=== PATIENT | female | born 1955 | race Caucasian/White ===

== ENCOUNTER → 2016-12-27 | Outpatient (CLI) | payer MEDICARE ==
[2015-11-16 11:48] VITALS: BP 135/78
[~2016-12-27] MED LIST: ALBU8.5H3 IH; ALPR1TAB6 PO; ASPI81TA9 PO; ATOR40TA59 PO; BARIUM SULFATE 60% 355 ML SUSP PO ONE; BUPR150T11 PO; CALC625T PO; CINN500C PO; CLON1TAB3 PO; DICL100G7 TP; DIPH50CA PO; FURO-68 PO; GABA-586 PO; GINK120C PO; IBUP800T PO; LIDO700A4 TP; LORA10TA3 PO; METF500T4 PO; METO25TA4 PO; MILN100T PO; MORP100T PO; MULT-208 PO; OXYC1TAB9 PO; POTA20TA12 PO; PROM12.56 PO; RANI150T6 PO; TIZA4TAB8 PO; VITA1TAB19 PO
--- NOTE | 2016-12-27 12:55 | RAD ---
EXAM: Small bowel follow-through exam. HISTORY: Pain. TECHNIQUE: A od grinder operator image of the abdomen was obtained. Serial overhead images of the abdomen were then obtained following the oral administration of barium contrast. 2 fluoroscopic spot images were obtained at the conclusion of the exam. The total thoracic time was not included on the images at the time of dictation. COMPARISON: CT dated 11/14/2015. FINDINGS: The od grinder operator image of the abdomen demonstrates a moderate amount of colonic stool. Air is no evidence of small bowel obstruction. There are cholecystectomy clips. There is a left ventral abdominal wall ostomy. The images obtained following the oral administration of contrast demonstrate contrast opacification of normal caliber loops of small bowel. No small bowel mucosal abnormality is seen. There is no stricture or fistula. The small bowel transit time is delayed beyond 210 minutes. The ileocecal valve is not opacified on the final images. IMPRESSION: 1. Delayed small transit time of greater than 210 minutes. 2. No evidence of small bowel mucosal abnormality. 3. Moderate colonic stool, suggesting a component of constipation.
== END | disposition home or self-care (01) ==
LOC: RAD 08:33
PROVIDERS: ATTEND Internal Medicine Gastroenterology
DX: R10.9 Unspecified abdominal pain (principal); Z90.49 Acquired absence of other specified parts of digestive tract; Z87.898 Personal history of other specified conditions
CPT/HCPCS: 74250

== ENCOUNTER 2018-07-07 11:34 | Emergency (ER) | payer MEDICARE ==
[~2018-07-07] VITALS: Ht 160 cm; Wt 94.4 kg
[~2018-07-07 11:34] MED LIST changes: -ALBU8.5H3 IH; +ALBU8.5H8 IH; +ASPI-612 PO; -ASPI81TA9 PO; -BARIUM SULFATE 60% 355 ML SUSP PO ONE; -CINN500C PO; +CINN500C2 PO; -CLON1TAB3 PO; +CLON1TAB4 PO; +DICL100G18 TP; -DICL100G7 TP; -IBUP800T PO; +IBUP800T19 PO; +METF500T16 PO; -METF500T4 PO; +OXYC-411 PO; -OXYC1TAB9 PO; +RANI150T21 PO; -RANI150T6 PO
[2018-07-07 12:29] LABS: BASO % 0 % (0-3); EOS # 0.2 x10^3/uL (0.0-0.7); EOS % 2 % (0-3); HEMATOCRIT 38.6 % (36.0-47.0); HEMOGLOBIN 13.3 g/dL (12.0-15.5); LYMPH # 1.7 x10^3/uL (1.0-4.8); LYMPH % 21 % (24-48); MEAN CORPUSCULAR HEMOGLOBIN 32 pg (25-35); MEAN CORPUSCULAR HGB CONC 35 g/dL (31-37); MEAN CORPUSCULAR VOLUME 93 fL (79-100); MONO # 0.5 x10^3/uL (0.0-1.1); MONO % 6 % (0-9); NEUT # 5.7 x10^3uL (1.8-7.7); NEUT % 70 % (31-73); PLATELET COUNT 230 x10^3/uL (140-400); RED BLOOD COUNT 4.15 x10^6/uL (3.50-5.40); RED CELL DISTRIBUTION WIDTH 12.7 % (11.5-14.5); WHITE BLOOD COUNT 8.1 x10^3/uL (4.0-11.0)
--- NOTE | 2018-07-07 12:29 | RAD ---
Right tibia and fibula, 2 views, 07/07/2018: HISTORY: Fall, pain No fracture or bony abnormality is detected. There is mild to moderate subcutaneous edema IMPRESSION: No acute bony abnormality is detected. Electronically signed by: Lio Blunt MD (07/07/2018 12:25 PM) [facility]
[2018-07-07 12:38] LABS: ALBUMIN 3.2 g/dL (3.4-5.0); ALBUMIN/GLOBULIN RATIO 0.9 (1.0-1.7); CALCIUM 8.9 mg/dL (8.5-10.1); CREATININE 0.8 mg/dL (0.6-1.0); GFR 72.4; POTASSIUM 4.1 mmol/L (3.5-5.1); TOTAL BILIRUBIN 0.3 mg/dL (0.2-1.0); TOTAL PROTEIN 6.6 g/dL (6.4-8.2)
--- NOTE | 2018-07-07 12:59 | RAD ---
Right lower extremity venous doppler ultrasound Indication: Pain, erythema and swelling of the right leg Technique: Color Doppler, grayscale, and spectral waveform analysis is used to evaluate the right femoral and popliteal veins. Findings: No evidence of deep venous thrombosis. Normal response to augmentation, normal compressibility and normal phasicity is demonstrated. Visualized calf veins are patent. Impression: Negative for deep venous thrombosis Electronically signed by: Carlos Manuel Bryson MD (07/07/2018 12:55 PM) [facility]
[2018-07-07] MEDS ORDERED: IV NORMAL SALINE 50ML 50 ML ONE (13:02)
[2018-07-07] MEDS ORDERED: cefTRIAXone SODIUM 1 GM VIAL IV ONE (13:02)
[2018-07-07 13:05] VITALS: BP 135/78
[2018-07-07 13:27] LABS: BACTERIA,URINE FEW /HPF (0-FEW); BILIRUBIN,URINE NEG (NEG); CLARITY,URINE HAZY; COLOR,URINE YELLOW; GLUCOSE,URINE NEG (NEG); NITRITE,URINE NEG (NEG); RBC,URINE 0 /HPF (0-2); SQUAMOUS EPITHELIAL CELL,UR OCC /LPF; UROBILINOGEN,URINE 1 mg/dL (0.2 mg/dL)
[2018-07-07] MEDS ORDERED: LEVO500T59 PO (13:46)
--- NOTE | 2018-07-07 13:46 | PHYS DOC ---
Past History Past Medical History: Anxiety, Depression, GERD, High Cholesterol, Hypertension Past Surgical History: Colectomy, Other Alcohol Use: None Drug Use: None Adult General Chief Complaint Chief Complaint: CELLULITIS HPI HPI Patient is a 63 year old female who presents with appearing of cellulitis of right lower extremity. Patient states she had a fall 2 weeks ago with ecchymosis of right lower extremity and since yesterday has had erythema and tenderness and fullness of right lower without focal neuro deficit, fever and chills, shortness of breath. Patient denies diabetes mellitus and history of DVT and PE. Review of Systems Review of Systems Constitutional: Denies fever or chills [] Eyes: Denies change in visual acuity, redness, or eye pain [] HENT: Denies nasal congestion or sore throat [] Respiratory: Denies cough or shortness of breath [] Cardiovascular: No additional information not addressed in HPI [] GI: Denies abdominal pain, nausea, vomiting, bloody stools or diarrhea [] : Denies dysuria or hematuria [] Musculoskeletal: Denies back pain or joint pain [] Integument: Denies rash or skin lesions [] Neurologic: Denies headache, focal weakness or sensory changes [] Endocrine: Denies polyuria or polydipsia [] All other systems were reviewed and found to be within normal limits, except as documented in this note. Current Medications Current Medications Current Medications Medications (Trade) Dose Ordered Sig/Emily Start Time Stop Time Status Last Admin Dose Admin Ceftriaxone Sodium 1 gm/ Sodium Chloride 50 ml @ 100 mls/hr 1X ONCE 07/07/18 13:00 07/07/18 13:29 DC 07/07/18 13:19 100 MLS/HR Ceftriaxone Sodium (Rocephin) 1 gm STK-MED ONCE 07/07/18 13:02 07/07/18 13:03 DC Sodium Chloride 50 ml @ As Directed STK-MED ONCE 07/07/18 13:02 07/07/18 13:03 DC Allergies Allergies Allergies Coded Allergies Type Severity Reaction Last Updated Verified Horse/Equine Containing Products Allergy Intermediate 11/15/15 Yes methadone Allergy Intermediate 11/15/15 Yes ondansetron Allergy Intermediate 11/15/15 Yes Physical Exam Physical Exam Constitutional: Well developed, well nourished, mild distress, non-toxic appearance. [] HENT: Normocephalic, atraumatic, bilateral external ears normal, oropharynx moist, no oral exudates, nose normal. [] Eyes: PERRLA, EOMI, conjunctiva normal, no discharge. [] Neck: Normal range of motion, no tenderness, supple, no stridor. [] Cardiovascular: Tachycardia, no murmur [] Lungs & Thorax: Bilateral breath sounds clear to auscultation [] Abdomen: Bowel sounds normal, soft, no tenderness, no masses, no pulsatile masses. [] Skin: Warm, dry, no erythema, no rash. [] Back: No tenderness, no CVA tenderness. [] Extremities: Right lower extremity with old ecchymosis in the upper part of Bailey and erythema and edema and marked tenderness of lower part of leg above ankle without neurovascular deficit, no cyanosis, no clubbing, ROM is painful.[ ] Neurologic: Alert and oriented X 3, normal motor function, normal sensory function, no focal deficits noted. [] Psychologic: Affect normal, judgement normal, mood normal. [] Current Patient Data Vital Signs Vital Signs Date Time Temp Pulse Resp B/P (MAP) Pulse Ox O2 Delivery O2 Flow Rate FiO2 07/07/18 11:34 99.0 92 22 95 Room Air Lab Results Laboratory Tests Test 07/07/18 12:05 07/07/18 12:51 White Blood Count 8.1 x10^3/uL (4.0-11.0) Red Blood Count 4.15 x10^6/uL (3.50-5.40) Hemoglobin 13.3 g/dL (12.0-15.5) Hematocrit 38.6 % (36.0-47.0) Mean Corpuscular Volume 93 fL (79-100) Mean Corpuscular Hemoglobin 32 pg (25-35) Mean Corpuscular Hemoglobin Concent 35 g/dL (31-37) Red Cell Distribution Width 12.7 % (11.5-14.5) Platelet Count 230 x10^3/uL (140-400) Neutrophils (%) (Auto) 70 % (31-73) Lymphocytes (%) (Auto) 21 % (24-48) L Monocytes (%) (Auto) 6 % (0-9) Eosinophils (%) (Auto) 2 % (0-3) Basophils (%) (Auto) 0 % (0-3) Neutrophils # (Auto) 5.7 x10^3uL (1.8-7.7) Lymphocytes # (Auto) 1.7 x10^3/uL (1.0-4.8) Monocytes # (Auto) 0.5 x10^3/uL (0.0-1.1) Eosinophils # (Auto) 0.2 x10^3/uL (0.0-0.7) Basophils # (Auto) 0.0 x10^3/uL (0.0-0.2) Prothrombin Time 9.7 SEC (9.4-11.4) Prothrombin Time INR 1.0 (0.9-1.1) Sodium Level 140 mmol/L (136-145) Potassium Level 4.1 mmol/L (3.5-5.1) Chloride Level 101 mmol/L (98-107) Carbon Dioxide Level 35 mmol/L (21-32) H Anion Gap 4 (6-14) L Blood Urea Nitrogen 10 mg/dL (7-20) Creatinine 0.8 mg/dL (0.6-1.0) Estimated GFR (Cockcroft-Gault) 72.4 BUN/Creatinine Ratio 13 (6-20) Glucose Level 121 mg/dL (70-99) H Lactic Acid Level 1.1 mmol/L (0.4-2.0) Calcium Level 8.9 mg/dL (8.5-10.1) Total Bilirubin 0.3 mg/dL (0.2-1.0) Aspartate Amino Transferase (AST) 25 U/L (15-37) Alanine Aminotransferase (ALT) 27 U/L (14-59) Alkaline Phosphatase 109 U/L (46-116) Total Protein 6.6 g/dL (6.4-8.2) Albumin 3.2 g/dL (3.4-5.0) L Albumin/Globulin Ratio 0.9 (1.0-1.7) L Urine Collection Type Unknown Urine Color Yellow Urine Clarity Hazy Urine pH 6.5 Urine Specific Leroy 1.015 Urine Protein Neg (NEG-TRACE) Urine Glucose (UA) Neg mg/dL (NEG) Urine Ketones (Stick) Neg mg/dL (NEG) Urine Blood Trace (NEG) Urine Nitrite Neg (NEG) Urine Bilirubin Neg (NEG) Urine Urobilinogen Dipstick 1 mg/dL (0.2 mg/dL) Urine Leukocyte Esterase Large (NEG) Urine RBC 0 /HPF (0-2) Urine WBC 11-20 /HPF (0-4) Urine Squamous Epithelial Cells Occ /LPF Urine Transitional Epithelial Cells Occ /LPF Urine Bacteria Few /HPF (0-FEW) EKG EKG [] Radiology/Procedures Radiology/Procedures [address] [address] IMAGING REPORT Signed PATIENT: ALMA KNIGHT ACCOUNT: [id number] : 1955 LOCATION: ER AGE: 63 SEX: F EXAM STATUS: REG ER ORD. PHYSICIAN: ROSA WASHBURN MD REASON: pain and erythema PROCEDURE: VENOUS LOWER EXTREMITY RIGHT Right lower extremity venous doppler ultrasound Indication: Pain, erythema and swelling of the right leg Technique: Color Doppler, grayscale, and spectral waveform analysis is used to evaluate the right femoral and popliteal veins. Findings: No evidence of deep venous thrombosis. Normal response to augmentation, normal compressibility and normal phasicity is demonstrated. Visualized calf veins are patent. Impression: Negative for deep venous thrombosis Electronically signed by: Carlos Manuel Bryson MD (07/07/2018 12:55 PM) [facility] DICTATED AND SIGNED BY: CARLOS MANUEL BRYSON MD DATE: 07/07/18 1254 CC: ROSA WASHBURN MD; ZEINAB NARAYANAN MD ~ [address] [address] IMAGING REPORT Signed PATIENT: ALMA KNIGHT ACCOUNT: [id number] : 1955 LOCATION: ER AGE: 63 SEX: F EXAM STATUS: REG ER ORD. PHYSICIAN: ROSA WASHBURN MD REASON: cellulitis PROCEDURE: TIBIA FIBULA RIGHT Right tibia and fibula, 2 views, 07/07/2018: HISTORY: Fall, pain No fracture or bony abnormality is detected. There is mild to moderate subcutaneous edema IMPRESSION: No acute bony abnormality is detected. Electronically signed by: Lio Blunt MD (07/07/2018 12:25 PM) [facility] DICTATED AND SIGNED BY: LIO BLUNT MD DATE: 07/07/18 1223 CC: ROSA WASHBURN MD; ZEINAB NARAYANAN MD ~ Course & Med Decision Making Course & Med Decision Making Pertinent Labs and Imaging studies reviewed. (See chart for details) Evaluation of patient in ER showed 63-year-old female patient without history of diabetes presented with cellulitis of right lower extremity since yesterday. Patient had marked tachycardia without fever, hypertension, leukocytosis. Lower extremity ultrasound was unremarkable for DVT. Patient preferred outpatient treatment. Patient treated with Rocephin and plan to discharge the prescription of Levaquin and instruction to return to ER if not getting better in 48 hours. Dragon Disclaimer Dragon Disclaimer This electronic medical record was generated, in whole or in part, using a voice recognition dictation system. Departure Departure: Impression: Primary Impression: Cellulitis of right lower leg Disposition: HOME, SELF-CARE ([id number]) Condition: IMPROVED Referrals: ZEINAB NARAYANAN MD (PCP) Patient Instructions: Cellulitis Additional Instructions: Apply moist warm pad on right lower extremity Follow-up with your primary care physician in 3-5 days Return to ER if not getting better Scripts Levofloxacin (LEVAQUIN) 500 Mg Tablet 1 TAB PO DAILY, #7 TAB Prov: ROSA WASHBURN MD 07/07/18 ROSA WASHBURN MD Jul 07, 2018 13:46
== END 2018-07-07 14:05 | disposition home or self-care (01) ==
LOC: ER 11:34
DX: L03.115 Cellulitis of right lower limb (principal); K21.9 Gastro-esophageal reflux disease without esophagitis; E78.00 Pure hypercholesterolemia, unspecified; I10 Essential (primary) hypertension; Z88.8 Allergy status to other drugs, medicaments and biological substances; Z91.048 Other nonmedicinal substance allergy status
CPT/HCPCS: 36415; 73590; 80053; 81001; 83605; 85025; 85610; 87040; 87086; 93971; 96365; 99285; J0696

== ENCOUNTER 2018-07-31 00:44 | Emergency (ER) | payer MEDICARE ==
[~2018-07-31] VITALS: Ht 160 cm; Wt 91.2 kg
[~2018-07-31 00:44] MED LIST changes: +LEVO500T59 PO
--- NOTE | 2018-07-31 01:01 | ED.ADGEN ---
Past History Past Medical History: Anxiety, Depression, GERD, High Cholesterol, Hypertension , Other Past Surgical History: Colectomy, Other Alcohol Use: None Drug Use: None Adult General Chief Complaint Chief Complaint ".. I was watching a movie.. and fell asleep.. I guess I was up sleep walking and I ran into the hutch...".." It happen about midnight... ".. "I got this bump on my head...I hurt my Lt. 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 " I quinton woke up when I hit the hutch...".." I would not have come in .. except I was nauseated...".. " I am not going to be admitted.. I got two dogs and a cat to take care of... I will not be admitted...".." I take a lot of pain meds.. Morphine 100mg three times a day..and Percocet.. Dr. Wallace has been trying to wean me down..." HPI HPI Patient is a 63 year old female who presents with above hx and complaints head, neck and Rt. knee injury in a fall after hitting her hutch sleep walking. Pt. seen early this month on the 07/07, for a previous fall and contusion to her face. Pt. has new contusion to her forehead, neck and Lt knee. Pt. is able to do straight leg lift. But does complain of pain on range of motion with left knee. Patient recently diagnosed with cellulitis and right leg which appears to have resolved on antibiotics. Patient localizes her neck pain to the paraspinal muscles and trapezius bilaterally. No specific midline tenderness. Pt. follows with Dr. Wallace Review of Systems Review of Systems Constitutional: Denies fever or chills [] Eyes: Denies change in visual acuity, redness, or eye pain [] HENT: Denies nasal congestion or sore throat []Head injury. Respiratory: Hx chronic shortness of breath [] Cardiovascular: No additional information not addressed in HPI [] GI: Denies abdominal pain, , vomiting, bloody stools or diarrhea []Complaints of nausea. : Denies dysuria or hematuria [] Musculoskeletal: Chronic back pain and joint pain [] Integument: Denies rash or skin lesions [] Neurologic: Denies , focal weakness or sensory changes []Complaints of frontal headache. Endocrine: Denies polyuria or polydipsia [] All other systems were reviewed and found to be within normal limits, except as documented in this note. Family History Family History Noncontributory Current Medications Current Medications Current Medications Medications (Trade) Dose Ordered Sig/Emily Start Time Stop Time Status Last Admin Dose Admin Diphenhydramine HCl (Benadryl Oral Elixir) 50 mg 1X ONCE 07/31/18 01:30 07/31/18 01:31 DC Diphenhydramine HCl (Benadryl) 50 mg 1X ONCE 07/31/18 01:30 07/31/18 01:31 DC 07/31/18 01:27 50 MG Prochlorperazine Edisylate (Compazine) 10 mg 1X ONCE 07/31/18 01:30 07/31/18 01:31 DC 07/31/18 01:27 10 MG Allergies Allergies Allergies Coded Allergies Type Severity Reaction Last Updated Verified aspartame Allergy Severe Anaphylaxis 07/31/18 Yes saccharin Allergy Severe Anaphylaxis 07/31/18 Yes sucralose Allergy Severe Anaphylaxis 07/31/18 Yes Horse/Equine Containing Products Allergy Intermediate 07/31/18 Yes methadone Allergy Intermediate 07/31/18 Yes ondansetron Allergy Intermediate 07/31/18 Yes Physical Exam Physical Exam Constitutional: Moderate distress, non-toxic appearance. [] HENT: Normocephalic, facial and forehead contusion old and new, bilateral external ears normal, oropharynx moist, no oral exudates, nose normal. [] Eyes: PERRLA, EOMI, conjunctiva normal, no discharge. [] Neck: Normal range of motion, paracervical muscle spasms and tenderness, some trapezius bilateral muscle spasms, supple, no stridor. [] Kyphosis. Cardiovascular: Bradycardic Heart rate regular rhythm, no murmur [] Lungs & Thorax: Bilateral breath sounds equal at apexes with a few scattered wheezes auscultation []has basilar crackles Abdomen: Bowel sounds normal, soft, no tenderness, no masses, no pulsatile masses. [] Distended. Old surgical scars. Colostomy. Skin: Warm, dry, no erythema, no rash. Old and new contusions. Back: No tenderness, no CVA tenderness. []Kyphosis Extremities: Lt knee tenderness, no cyanosis, no clubbing, ROM with crepitation , , trace ankle edema. [] Can do straight leg lift. No cording appreciated. Arthritic changes Neurologic: Alert and oriented X 3, normal motor function, normal sensory function, no focal deficits noted. Mild tremor. Psychologic: Affect normal, judgement normal, mood normal. [] Current Patient Data Vital Signs Vital Signs Date Time Temp Pulse Resp B/P (MAP) Pulse Ox O2 Delivery O2 Flow Rate FiO2 07/31/18 00:45 98.3 67 20 91 Room Air Lab Results Laboratory Tests Test 07/31/18 02:07 White Blood Count 6.1 x10^3/uL (4.0-11.0) Red Blood Count 4.34 x10^6/uL (3.50-5.40) Hemoglobin 13.9 g/dL (12.0-15.5) Hematocrit 40.3 % (36.0-47.0) Mean Corpuscular Volume 93 fL (79-100) Mean Corpuscular Hemoglobin 32 pg (25-35) Mean Corpuscular Hemoglobin Concent 35 g/dL (31-37) Red Cell Distribution Width 12.7 % (11.5-14.5) Platelet Count 192 x10^3/uL (140-400) Neutrophils (%) (Auto) 54 % (31-73) Lymphocytes (%) (Auto) 34 % (24-48) Monocytes (%) (Auto) 9 % (0-9) Eosinophils (%) (Auto) 3 % (0-3) Basophils (%) (Auto) 0 % (0-3) Neutrophils # (Auto) 3.3 x10^3uL (1.8-7.7) Lymphocytes # (Auto) 2.1 x10^3/uL (1.0-4.8) Monocytes # (Auto) 0.5 x10^3/uL (0.0-1.1) Eosinophils # (Auto) 0.2 x10^3/uL (0.0-0.7) Basophils # (Auto) 0.0 x10^3/uL (0.0-0.2) Prothrombin Time 9.8 SEC (9.4-11.4) Prothrombin Time INR 1.0 (0.9-1.1) PTT 24 SEC (23-33) Sodium Level 143 mmol/L (136-145) Potassium Level 3.6 mmol/L (3.5-5.1) Chloride Level 102 mmol/L (98-107) Carbon Dioxide Level 37 mmol/L (21-32) H Anion Gap 4 (6-14) L Blood Urea Nitrogen 18 mg/dL (7-20) Creatinine 1.0 mg/dL (0.6-1.0) Estimated GFR (Cockcroft-Gault) 56.0 Glucose Level 109 mg/dL (70-99) H Calcium Level 8.9 mg/dL (8.5-10.1) Magnesium Level 2.1 mg/dL (1.8-2.4) Creatine Kinase 63 U/L (26-192) Troponin I Quantitative < 0.017 ng/mL (0-0.055) KW-Bsj-D-Type Natriuretic Peptide 303 pg/mL (0-124) H EKG EKG My interpretation EKG shows a sinus rhythm at 64 bpm. Does have some leftward axis. Some nonspecific anterior septal changes. Does have a baseline artifact from mild tremor[] Radiology/Procedures Radiology/Procedures My interpretation of chest x-ray shows cardiomegaly. No large pulmonary infiltrate. Some blunting a less closed phrenic angle. Similar to prior x-ray on file.[] My interpretation CT of head shows chronic changes but no bleed, shift, mass, edema or fracture. Does appear to have right maxillary sister sinusitis. Cervical shows degenerative joint changes but no obvious fracture or dislocation. See formal report when available Course & Med Decision Making Course & Med Decision Making Pertinent Labs and Imaging studies reviewed. (See chart for details) Begged pt. to stay for head injury observation. Pt. refused. Pt. exhibit UCAR capacity and understanding. Pt. aware of risks of discharge. Pt. to continue current meds.and follow up with primary. Return at any time if she elects to be admitted. [] Final Impression Final Impression 1. Fall 2. Closed Head Injury 3. Contusions face 4. Rt Knee contusions 5. Hx of Chronic Pain- Chronic Narcotic Use [] Dragon Disclaimer Dragon Disclaimer This electronic medical record was generated, in whole or in part, using a voice recognition dictation system. JAKOB GILL MD Jul 31, 2018 01:00
[2018-07-31] MEDS ORDERED: diphenhydrAMINE HCL 25 MG CAPSULE PO ONE ×2 (01:20→01:30)
--- NOTE | 2018-07-31 01:23 | EKG ---
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
[2018-07-31] MEDS ORDERED: diphenhydrAMINE ORAL ELIXIR 12.5 MG/5 ML ML PO ONE (01:30)
[2018-07-31] MEDS ORDERED: PROCHLORPERAZINE 10 MG/2 ML VIAL. IM ONE (01:30)
[2018-07-31 02:26] LABS: BASO % 0 % (0-3); EOS # 0.2 x10^3/uL (0.0-0.7); EOS % 3 % (0-3); HEMATOCRIT 40.3 % (36.0-47.0); HEMOGLOBIN 13.9 g/dL (12.0-15.5); LYMPH # 2.1 x10^3/uL (1.0-4.8); LYMPH % 34 % (24-48); MEAN CORPUSCULAR HEMOGLOBIN 32 pg (25-35); MEAN CORPUSCULAR HGB CONC 35 g/dL (31-37); MEAN CORPUSCULAR VOLUME 93 fL (79-100); MONO # 0.5 x10^3/uL (0.0-1.1); MONO % 9 % (0-9); NEUT # 3.3 x10^3uL (1.8-7.7); NEUT % 54 % (31-73); PLATELET COUNT 192 x10^3/uL (140-400); RED BLOOD COUNT 4.34 x10^6/uL (3.50-5.40); RED CELL DISTRIBUTION WIDTH 12.7 % (11.5-14.5); WHITE BLOOD COUNT 6.1 x10^3/uL (4.0-11.0)
--- NOTE | 2018-07-31 02:33 | RAD ---
CT Head W/O Contrast: History: FALL, HIT FOREHEAD, CONTUSION WITH ABRASION, NAUSEA AND HEADACHE, IN CCOLLAR Comparison: none Axial images were obtained without contrast. The vilchis and white matter appears normal and symmetrical for the patients age. There is no mass effect, extraaxial fluid collections or hydrocephalus. There is no gross bleed. There is no focal loss of vilchis-white matter distinction to suggest acute ischemia, i.e. stroke. There is a small polyp versus mucous retention cyst the right maxillary sinus. Impression: No acute findings. End impression CT C-Spine without contrast: Clinical History: FALL, HIT FOREHEAD, CONTUSION WITH ABRASION, NAUSEA AND HEADACHE, IN CCOLLAR Technique: Axial helical images of the cervical spine were obtained without contrast, axial coronal and sagittal reconstruction was performed. Findings: There is no loss of vertebral body stature. There is no prevertebral soft tissue swelling. The vertebral bodies are well aligned. The C1-C2 relationship is normal. The visualized osseous structures appear normal. There is straightening of the normal cervical lordosis which can be positional or can be secondary to muscle spasm. Evaluation of the central canal is limited without contrast. Impression: No acute findings. Clinical correlation suggested. PQRS Compliance Statement: One or more of the following individualized dose reduction techniques were utilized for this examination: 1. Automated exposure control 2. Adjustment of the mA and/or kV according to patient size 3. Use of iterative reconstruction technique Electronically signed by: Luiz Estrada III, MD (07/31/2018 2:31 AM) [facility]
--- NOTE | 2018-07-31 02:56 | RAD ---
CHEST AP ONLY Clinical History: FALL Technique: AP view of the chest was obtained at 07/31/2018 1:44 AM. Comparison: November 15, 2015. Findings: The heart is mildly enlarged. The pulmonary vasculature is normal. The lungs and pleural margins are clear. Impression: Mild cardiomegaly. Electronically signed by: Luiz Estrada III, MD (07/31/2018 2:53 AM) [facility]
--- NOTE | 2018-07-31 02:57 | RAD ---
4 views left knee HISTORY: Pain status post fall AP lateral oblique and sunrise views There is moderate degenerative changes with marginal spurring of all 3 compartments. There is no interruption of cortex to suggest a fracture. IMPRESSION: No acute findings. Electronically signed by: Luiz Estrada III, MD (07/31/2018 2:54 AM) [facility]
[2018-07-31 02:59] LABS: CALCIUM 8.9 mg/dL (8.5-10.1); MAGNESIUM 2.1 mg/dL (1.8-2.4); POTASSIUM 3.6 mmol/L (3.5-5.1)
[2018-07-31 03:30] VITALS: BP 112/67
== END 2018-07-31 03:56 | disposition home or self-care (01) ==
LOC: ER 00:44
DX: S09.90XA Unspecified injury of head, initial encounter (principal); S00.83XA Contusion of other part of head, initial encounter; S80.01XA Contusion of right knee, initial encounter; G89.29 Other chronic pain; K21.9 Gastro-esophageal reflux disease without esophagitis; E78.00 Pure hypercholesterolemia, unspecified; I10 Essential (primary) hypertension; Z88.8 Allergy status to other drugs, medicaments and biological substances; W18.09XA Striking against other object with subsequent fall, initial encounter; Y93.89 Activity, other specified; Y92.89 Other specified places as the place of occurrence of the external cause; Y99.8 Other external cause status
CPT/HCPCS: 36415; 70450; 71045; 72125; 73564; 80048; 82550; 83735; 83880; 84484; 85025; 85610; 85730; 93005; 96372; 99285; J0780; Q0163

== ENCOUNTER 2018-12-25 20:45 | Emergency (ER) | payer MEDICARE ==
[~2018-12-25] VITALS: Ht 160 cm; Wt 93.4 kg
[~2018-12-25 20:45] MED LIST changes: +ALBU2.5V8 IH; -ALBU8.5H8 IH; +CLON1TAB11 PO; -CLON1TAB4 PO
[2018-12-25 22:05] LABS: BASO # 0.1 x10^3/uL (0.0-0.2); BASO % 1 % (0-3); EOS % 0 % (0-3); HEMATOCRIT 46.8 % (36.0-47.0); LYMPH # 1.8 x10^3/uL (1.0-4.8); LYMPH % 17 % (24-48); MEAN CORPUSCULAR HEMOGLOBIN 32 pg (25-35); MEAN CORPUSCULAR HGB CONC 34 g/dL (31-37); MEAN CORPUSCULAR VOLUME 92 fL (79-100); MONO # 0.5 x10^3/uL (0.0-1.1); MONO % 5 % (0-9); NEUT # 8.1 x10^3uL (1.8-7.7); NEUT % 77 % (31-73); PLATELET COUNT 297 x10^3/uL (140-400); RED BLOOD COUNT 5.07 x10^6/uL (3.50-5.40); RED CELL DISTRIBUTION WIDTH 12.6 % (11.5-14.5); WHITE BLOOD COUNT 10.6 x10^3/uL (4.0-11.0)
[2018-12-25 22:17] LABS: MAGNESIUM 2.3 mg/dL (1.8-2.4)
[2018-12-25 22:26] LABS: ACETAMIN < 2 mcg/mL (10-30); ETHANOL 0 mg/dL (0-10); SALIC 1.9 mg/dL (2.8-20.0)
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
[2018-12-25] MEDS ORDERED: IV NORMAL SALINE 1,000ML 1,000 ML IV ONE (23:30)
[2018-12-26] MEDS ORDERED: ORPHENADRINE CITRATE 60 MG/2 ML VIAL. IV ONE
[2018-12-26] MEDS ORDERED: buPROPion SR 150 MG TABLET.SA PO ONE (00:30)
[2018-12-26] MEDS ORDERED: ACETAMINOPHEN 500 MG TABLET PO ONE (00:45)
[2018-12-26 01:29] LABS: BACTERIA,URINE 0 /HPF (0-FEW); BARBITURATES NEG (NEG); BENZODIAZEPINES NEG (NEG); BILIRUBIN,URINE NEG (NEG); CANNABINOIDS NEG (NEG); CLARITY,URINE CLEAR; COCAINE NEG (NEG); COLOR,URINE YELLOW; GLUCOSE,URINE NEG (NEG); METHADONE NEG (NEG); NITRITE,URINE NEG (NEG); OPIATES POS (NEG); PHENCYCLIDINE NEG (NEG); RBC,URINE 0 /HPF (0-2); SQUAMOUS EPITHELIAL CELL,UR OCC /LPF; UROBILINOGEN,URINE 0.2 mg/dL (0.2 mg/dL)
[2018-12-26 01:31] LABS: AMPHETAMINE/METHAMPHETAMINE NEG (NEG)
[2018-12-26] MEDS ORDERED: CYCLOBENZAPRINE 10 MG TABLET. PO ONE (01:45)
[2018-12-26 02:00] LABS: ALBUMIN 4.1 g/dL (3.4-5.0); ALBUMIN/GLOBULIN RATIO 0.9 (1.0-1.7); CALCIUM 9.8 mg/dL (8.5-10.1); CREATININE 1.3 mg/dL (0.6-1.0); GFR 41.4; POTASSIUM 4.6 mmol/L (3.5-5.1); TOTAL BILIRUBIN 0.4 mg/dL (0.2-1.0); TOTAL PROTEIN 8.6 g/dL (6.4-8.2)
[2018-12-26 04:10] VITALS: BP 162/84
[2018-12-26] MEDS ORDERED: IBUP800T19 PO (18:02)
[2018-12-26] MEDS ORDERED: DULO30CA2 PO (18:02)
[2018-12-26] MEDS ORDERED: RANI-348 PO (18:02)
[2018-12-26] MEDS ORDERED: ACET325T9 PO (18:02)
[2018-12-26] MEDS ORDERED: LORA10TA68 PO (18:02)
[2018-12-26] MEDS ORDERED: ALPR1TAB6 PO (18:02)
[2018-12-26] MEDS ORDERED: MORP60TA PO (20:52)
== END 2018-12-26 04:10 | disposition home or self-care (01) ==
LOC: ER 20:45
DX: R44.1 Visual hallucinations (principal); R44.0 Auditory hallucinations; R41.0 Disorientation, unspecified; N28.9 Disorder of kidney and ureter, unspecified; F41.9 Anxiety disorder, unspecified; F32.9 Major depressive disorder, single episode, unspecified; K21.9 Gastro-esophageal reflux disease without esophagitis; E78.00 Pure hypercholesterolemia, unspecified; I10 Essential (primary) hypertension; Z88.8 Allergy status to other drugs, medicaments and biological substances
CPT/HCPCS: 36415; 80053; 80307; 80329; 81001; 83690; 83735; 84484; 85025; 85610; 85730; 96361; 96374; G0480; J2060; 82003; 99284-25; J7030

== ENCOUNTER 2018-12-26 12:54 | Inpatient (IN) | payer MEDICARE ==
[~2018-12-26] VITALS: Ht 162.6 cm; Wt 92.3 kg
[2018-12-26 13:43] LABS: BASO % 1 % (0-3); EOS # 0.1 x10^3/uL (0.0-0.7); EOS % 1 % (0-3); HEMATOCRIT 43.2 % (36.0-47.0); HEMOGLOBIN 14.5 g/dL (12.0-15.5); LYMPH # 2.5 x10^3/uL (1.0-4.8); LYMPH % 36 % (24-48); MEAN CORPUSCULAR HEMOGLOBIN 31 pg (25-35); MEAN CORPUSCULAR HGB CONC 34 g/dL (31-37); MEAN CORPUSCULAR VOLUME 92 fL (79-100); MONO # 0.5 x10^3/uL (0.0-1.1); MONO % 7 % (0-9); NEUT # 3.9 x10^3uL (1.8-7.7); NEUT % 55 % (31-73); PLATELET COUNT 253 x10^3/uL (140-400); RED CELL DISTRIBUTION WIDTH 12.7 % (11.5-14.5)
[2018-12-26 13:47] LABS: AMPHETAMINE/METHAMPHETAMINE NEG (NEG); BARBITURATES NEG (NEG); BENZODIAZEPINES NEG (NEG); CANNABINOIDS NEG (NEG); COCAINE NEG (NEG); METHADONE NEG (NEG); OPIATES POS (NEG); PHENCYCLIDINE NEG (NEG)
--- NOTE | 2018-12-26 13:48 | RAD ---
PORTABLE CHEST 1V History: SHORT OF BREATH. Comparison with July 31, 2018. Note that the patient is rotated on this exam resulting in some asymmetry. Cardiac silhouette remains mildly enlarged, unchanged. No evidence of pneumothorax. No pleural effusion. No focal airspace consolidation. Regional skeleton appears grossly intact. IMPRESSION: No consolidating infiltrate. Electronically signed by: Carlos Manuel Bryson MD (12/26/2018 1:45 PM) [facility]
[2018-12-26 13:55] LABS: ALBUMIN 3.5 g/dL (3.4-5.0); ALBUMIN/GLOBULIN RATIO 0.9 (1.0-1.7); CALCIUM 8.7 mg/dL (8.5-10.1); CREATININE 0.9 mg/dL (0.6-1.0); GFR 63.2; POTASSIUM 4.7 mmol/L (3.5-5.1); TOTAL BILIRUBIN 0.4 mg/dL (0.2-1.0); TOTAL PROTEIN 7.4 g/dL (6.4-8.2)
[2018-12-26] MEDS ORDERED: ASPIRIN 81 MG TAB.CHEW PO ONE (14:20)
--- NOTE | 2018-12-26 14:22 | PHYS DOC ---
Past History Past Medical History: Anxiety, Depression, GERD, High Cholesterol, Hypertension , Other Past Surgical History: Cholecystectomy, Other Alcohol Use: None Drug Use: None Adult General Chief Complaint Chief Complaint: CHEST PAIN HPI HPI Patient is a 63 year old female who presents with complaining of chest pain. Patient states she had a nervous breakdown yesterday and [facility]. Patient complaining of sudden onset of left site aching and pressure chest pain while driving to the [facility] as a constant pain with radiation to left jaw and associated with shortness of breath, palpitation , dizziness, diaphoresis and nausea. Patient rated her pain 6/10 that decreased to 4/10 at arrival to ER. Patient denies history of chest pain, coronary artery disease, smoking, diabetes mellitus, family history of coronary artery disease. Patient has history of hypertension and dyslipidemia. Patient had extensive GI history with colostomy in place. Review of Systems Review of Systems Constitutional: Denies fever or chills [] Eyes: Denies change in visual acuity, redness, or eye pain [] HENT: Denies nasal congestion or sore throat [] Respiratory: Denies cough or shortness of breath [] Cardiovascular: No additional information not addressed in HPI [] GI: Denies abdominal pain, vomiting, bloody stools or diarrhea , reports nausea [] : Denies dysuria or hematuria [] Musculoskeletal: Denies back pain or joint pain [] Integument: Denies rash or skin lesions [] Neurologic: Denies headache, focal weakness or sensory changes [] Endocrine: Denies polyuria or polydipsia [] All other systems were reviewed and found to be within normal limits, except as documented in this note. Current Medications Current Medications Current Medications Medications (Trade) Dose Ordered Sig/[facility] Start Time Stop Time Status Last Admin Dose Admin Aspirin (Children'S Aspirin) 324 mg 1X ONCE 12/26/18 14:20 12/26/18 14:21 12/26/18 13:56 324 MG Allergies Allergies Allergies Coded Allergies Type Severity Reaction Last Updated Verified aspartame Allergy Severe Anaphylaxis 07/31/18 Yes saccharin Allergy Severe Anaphylaxis 07/31/18 Yes sucralose Allergy Severe Anaphylaxis 07/31/18 Yes Horse/Equine Containing Products Allergy Intermediate 07/31/18 Yes methadone Allergy Intermediate 07/31/18 Yes ondansetron Allergy Intermediate 07/31/18 Yes Physical Exam Physical Exam Constitutional: Well developed, well nourished, mild distress, non-toxic appearance, obese,] HENT: Normocephalic, atraumatic,oropharynx moist.[] Eyes: PERRLA, EOMI, conjunctiva normal, no discharge. [] Neck: Normal range of motion, no tenderness, supple, no stridor. [] Cardiovascular:Heart rate regular rhythm, no murmur [] Lungs & Thorax: Bilateral breath sounds clear to auscultation [] Abdomen: Bowel sounds normal, soft, no tenderness, no masses, no pulsatile masses, left colostomy in place. [] Skin: Warm, dry, no erythema, no rash. [] Back: No tenderness, no CVA tenderness. [] Extremities: No tenderness, no cyanosis, no clubbing, ROM intact, no edema. [] Neurologic: Alert and oriented X 3, normal motor function, normal sensory function, no focal deficits noted. [] Psychologic: Affect normal, judgement normal, mood normal. [] Current Patient Data Vital Signs Vital Signs Date Time Temp Pulse Resp B/P (MAP) Pulse Ox O2 Delivery O2 Flow Rate FiO2 12/26/18 13:32 98.3 68 18 95 Room Air Lab Results Laboratory Tests Test 12/26/18 13:06 White Blood Count 7.0 x10^3/uL (4.0-11.0) Red Blood Count 4.70 x10^6/uL (3.50-5.40) Hemoglobin 14.5 g/dL (12.0-15.5) Hematocrit 43.2 % (36.0-47.0) Mean Corpuscular Volume 92 fL (79-100) Mean Corpuscular Hemoglobin 31 pg (25-35) Mean Corpuscular Hemoglobin Concent 34 g/dL (31-37) Red Cell Distribution Width 12.7 % (11.5-14.5) Platelet Count 253 x10^3/uL (140-400) Neutrophils (%) (Auto) 55 % (31-73) Lymphocytes (%) (Auto) 36 % (24-48) Monocytes (%) (Auto) 7 % (0-9) Eosinophils (%) (Auto) 1 % (0-3) Basophils (%) (Auto) 1 % (0-3) Neutrophils # (Auto) 3.9 x10^3uL (1.8-7.7) Lymphocytes # (Auto) 2.5 x10^3/uL (1.0-4.8) Monocytes # (Auto) 0.5 x10^3/uL (0.0-1.1) Eosinophils # (Auto) 0.1 x10^3/uL (0.0-0.7) Basophils # (Auto) 0.0 x10^3/uL (0.0-0.2) Prothrombin Time 9.9 SEC (9.4-11.4) Prothrombin Time INR 1.0 (0.9-1.1) Sodium Level 141 mmol/L (136-145) Potassium Level 4.7 mmol/L (3.5-5.1) Chloride Level 102 mmol/L (98-107) Carbon Dioxide Level 32 mmol/L (21-32) Anion Gap 7 (6-14) Blood Urea Nitrogen 15 mg/dL (7-20) Creatinine 0.9 mg/dL (0.6-1.0) Estimated GFR (Cockcroft-Gault) 63.2 BUN/Creatinine Ratio 17 (6-20) Glucose Level 83 mg/dL (70-99) Calcium Level 8.7 mg/dL (8.5-10.1) # Magnesium Level 2.0 mg/dL (1.8-2.4) Total Bilirubin 0.4 mg/dL (0.2-1.0) Aspartate Amino Transferase (AST) 19 U/L (15-37) Alanine Aminotransferase (ALT) 14 U/L (14-59) Alkaline Phosphatase 113 U/L (46-116) Creatine Kinase 121 U/L (26-192) Troponin I Quantitative < 0.017 ng/mL (0-0.055) IA-Clw-H-Type Natriuretic Peptide 1040 pg/mL (0-124) H Total Protein 7.4 g/dL (6.4-8.2) Albumin 3.5 g/dL (3.4-5.0) Albumin/Globulin Ratio 0.9 (1.0-1.7) L Lipase 103 U/L (73-393) Urine Opiates Screen Pos (NEG) Urine Methadone Screen Neg (NEG) Urine Barbiturates Neg (NEG) Urine Phencyclidine Screen Neg (NEG) Urine Amphetamine/Methamphetamine Neg (NEG) Urine Benzodiazepines Screen Neg (NEG) Urine Cocaine Screen Neg (NEG) Urine Cannabinoids Screen Neg (NEG) Urine Ethyl Alcohol Neg (NEG) EKG EKG EKG interpreted by me. EKG at 1311 showed regular rhythm at rate of 72, left mcneil axis, no acute ST and T-wave abnormalities. Radiology/Procedures Radiology/Procedures [address] [id number] IMAGING REPORT Signed PATIENT: ALMA KNIGHT ACCOUNT: [id number] : 1955 LOCATION: ER AGE: 63 SEX: F EXAM STATUS: REG ER ORD. PHYSICIAN: ROSA WASHBURN MD REASON: chest pain PROCEDURE: PORTABLE CHEST 1V PORTABLE CHEST 1V History: SHORT OF BREATH. Comparison with July 31, 2018. Note that the patient is rotated on this exam resulting in some asymmetry. Cardiac silhouette remains mildly enlarged, unchanged. No evidence of pneumothorax. No pleural effusion. No focal airspace consolidation. Regional skeleton appears grossly intact. IMPRESSION: No consolidating infiltrate. Electronically signed by: Carlos Manuel Bryson MD (12/26/2018 1:45 PM) [facility] DICTATED AND SIGNED BY: CARLOS MANUEL BRYSON MD DATE: 12/26/181344 CC: ROSA WASHBURN MD; ZEINAB NARAYANAN MD ~ Course & Med Decision Making Course & Med Decision Making Pertinent Labs and Imaging studies reviewed. (See chart for details) Evolution of patient in ER showed 62-year-old female patient with complaining of chest pain that gradually improved at arrival to ER and decreased to 1/10 during evaluation. Patient had unremarkable EKG and labs but because of cardiac his factor of hypertension and dyslipidemia plan to admit patient for observation and more tenderness. Dr. Ash accepted admission at 1356. Dragon Disclaimer Dragon Disclaimer This electronic medical record was generated, in whole or in part, using a voice recognition dictation system. Departure Departure: Impression: Primary Impression: Acute chest pain Disposition: ADMITTED INPATIENT (@1358) Admitting Physician: Nate Ash (accepted admission at 1356) Condition: IMPROVED Referrals: ZEINAB NARAYANAN MD (PCP) ROSA WASHBURN MD Dec 26, 2018 14:22
[2018-12-26] MEDS ORDERED: ACETAMINOPHEN 325 MG TABLET PO ONE ×2 (16:17→16:45)
[2018-12-26 17:23] VITALS: BP 128/77
[2018-12-26] MEDS ORDERED: ACET325T9 PO (18:02)
[2018-12-26] MEDS ORDERED: RANI-348 PO (18:02)
[2018-12-26] MEDS ORDERED: DULO30CA2 PO (18:02)
[2018-12-26] MEDS ORDERED: LORA10TA68 PO (18:02)
[2018-12-26] MEDS ORDERED: ALPR1TAB6 PO (18:02)
[2018-12-26] MEDS ORDERED: IBUP800T19 PO (18:02)
[2018-12-26 20:02] VITALS: BP 132/75
[2018-12-26] MEDS ORDERED: DICLOFENAC SODIUM 1% TOPICAL GEL 100GM TUBE. TP PRN (20:45)
[2018-12-26] MEDS ORDERED: ACETAMINOPHEN 325 MG TABLET PO PRN (20:45)
[2018-12-26] MEDS ORDERED: MORP60TA PO (20:52)
[2018-12-26] MEDS ORDERED: CINNAMON BARK 2000 MG PO SCH (21:00)
[2018-12-26] MEDS ORDERED: PROMETHAZINE 25 MG TABLET. PO PRN (21:15)
[2018-12-26] MEDS ORDERED: diphenhydrAMINE HCL 25 MG CAPSULE PO PRN (21:15)
[2018-12-26] MEDS: POTASSIUM CHLORIDE 20 MEQ TABLET.ER. PO SCH (22:15)
[2018-12-26] MEDS: buPROPion SR 150 MG TABLET.SA PO SCH (22:15)
[2018-12-26] MEDS: CALCIUM POLYCARBOPHIL 625 MG TABLET PO SCH (22:15)
[2018-12-26] MEDS: tiZANidine 4 MG TABLET. PO SCH (22:15)
[2018-12-26] MEDS: ASPIRIN ENTERIC COATED 81 MG TABLET.DR. PO SCH (22:16)
[2018-12-26] MEDS: FAMOTIDINE 20 MG TABLET PO SCH (22:16)
[2018-12-26] MEDS: FUROSEMIDE 20 MG TABLET PO SCH (22:16)
[2018-12-26] MEDS: CETIRIZINE HCL 10 MG TABLET PO SCH (22:16)
[2018-12-26] MEDS: METOPROLOL TART IMMED RELEASE 25 MG TABLET PO SCH (22:16)
[2018-12-26 23:15] VITALS: BP 147/90
[2018-12-27 05:38] VITALS: BP 131/79
[2018-12-27] MEDS: IBUPROFEN 800 MG TABLET. PO PRN ×2 (06:09→14:02)
[2018-12-27] MEDS: DULoxetine HCL 30 MG CAPSULE.DR PO SCH (08:07)
[2018-12-27] MEDS: MORPHINE 100 MG PO SCH ×2 (08:07→20:29)
[2018-12-27] MEDS: tiZANidine 4 MG TABLET. PO SCH ×2 (08:07→20:29)
[2018-12-27] MEDS: FUROSEMIDE 20 MG TABLET PO SCH ×2 (08:08→20:29)
[2018-12-27] MEDS: METOPROLOL TART IMMED RELEASE 25 MG TABLET PO SCH ×2 (08:08→20:29)
[2018-12-27] MEDS: POTASSIUM CHLORIDE 20 MEQ TABLET.ER. PO SCH ×2 (08:08→20:29)
[2018-12-27] MEDS: buPROPion SR 150 MG TABLET.SA PO SCH (08:08)
[2018-12-27] MEDS ORDERED: LIDOCAINE (700MG/PATCH) PATCH. TD PRN (09:00)
[2018-12-27 11:05] VITALS: BP 117/67
--- NOTE | 2018-12-27 14:25 | EKG ---
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
[2018-12-27] MEDS ORDERED: ALPRAZolam 0.5 MG TABLET PO PRN (14:45)
[2018-12-27 15:30] VITALS: BP 146/81
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
[2018-12-27] MEDS ORDERED: OLANZapine 2.5 MG TABLET PO PRN (18:45)
[2018-12-27 20:01] VITALS: BP_SYST 107; BP_SYST 117; BP_DIAS 66; BP_DIAS 73
[2018-12-27] MEDS: ASPIRIN ENTERIC COATED 81 MG TABLET.DR. PO SCH (20:28)
[2018-12-27] MEDS: CETIRIZINE HCL 10 MG TABLET PO SCH (20:28)
[2018-12-27] MEDS: FAMOTIDINE 20 MG TABLET PO SCH (20:29)
[2018-12-27] MEDS: clonazePAM 2 MG TABLET PO SCH (20:29)
[2018-12-27] MEDS: CALCIUM POLYCARBOPHIL 625 MG TABLET PO SCH (20:29)
[2018-12-27] MEDS: oxyCODONE/APAP 10/325 1 TAB TABLET PO SCH (20:30)
[2018-12-27 22:16] VITALS: BP 118/76
--- NOTE | 2018-12-27 23:38 | PN ---
DATE: 12/27/2018 SUBJECTIVE: The patient is sitting in her chair comfortably, in no apparent distress. She continued to hallucinate seeing animals, insects and humans in her room. She has only few twinges of her chest pain that lasted only for seconds. She continued to have episodes of diaphoresis, but no chest pain, no shortness of breath. She had 2 sets of cardiac enzymes that were both negative. PHYSICAL EXAMINATION: GENERAL: When I examined her, she looked well and was clearly in no apparent respiratory distress. No pallor, jaundice, cyanosis, or thyromegaly. No jugular venous distension. No lower limb edema. VITAL SIGNS: Her heart rate was 65, blood pressure 132/75, temperature was 97.1, respiratory rate 22 and oxygen saturation was 93% on room air. HEAD, EYES, EARS, NOSE AND THROAT: Showed normocephalic, atraumatic. NECK: Supple. HEART: Showed normal first and second heart sounds. No gallop, rub or murmur. CHEST: Clear to auscultation. No crepitation or rhonchi. ABDOMEN: Distended, soft, nontender. NEUROLOGIC: She is awake, alert, responding appropriately. All her cranial nerves were intact. She ambulates with 2 canes. IMPRESSION: Patient had 2 sets of cardiac enzymes that ruled out myocardial infarction. Again, we are waiting for evaluation by the psychiatrist as she continued to hallucinate and Cardiology for her chest pain. She apparently had a stress test done about 4 years ago, it was negative and a cardiac catheterization done 20 years ago that was also unrevealing. I would check her lipid profile tomorrow morning. DEBBIE IGLESIAS MD DR: BREANNE/thiago JOB#: [id number] / [id number]
[2018-12-28 05:06] VITALS: BP 116/73
[2018-12-28 06:24] LABS: CALCIUM 8.5 mg/dL (8.5-10.1); CREATININE 0.8 mg/dL (0.6-1.0); GFR 72.4; MAGNESIUM 2.2 mg/dL (1.8-2.4); POTASSIUM 3.7 mmol/L (3.5-5.1)
--- NOTE | 2018-12-28 07:42 | RAD ---
CT of the head without contrast, 12/27/2018: HISTORY: Hallucinations Comparison is made to a study from 07/31/2018. The ventricles are within normal limits in size. There is no shift of the midline structures. There is no evidence of acute intracranial hemorrhage or mass effect. There is minimal basal ganglia calcification on the left. IMPRESSION: No acute intracranial abnormality is detected. RS Compliance Statement: One or more of the following individualized dose reduction techniques were utilized for this examination: 1. Automated exposure control 2. Adjustment of the mA and/or kV according to patient size 3. Use of iterative reconstruction technique Electronically signed by: Lio Blunt MD (12/28/2018 7:39 AM) [facility]
[2018-12-28] MEDS: DULoxetine HCL 30 MG CAPSULE.DR PO SCH (08:47)
[2018-12-28] MEDS: FUROSEMIDE 20 MG TABLET PO SCH ×2 (08:47→20:46)
[2018-12-28] MEDS: POTASSIUM CHLORIDE 20 MEQ TABLET.ER. PO SCH ×2 (08:48→20:48)
[2018-12-28] MEDS: ISOSORBIDE MONONITRATE ER 30 MG TAB.ER.24H PO SCH (08:48)
[2018-12-28] MEDS: tiZANidine 4 MG TABLET. PO SCH ×2 (08:48→20:48)
[2018-12-28] MEDS: METOPROLOL TART IMMED RELEASE 25 MG TABLET PO SCH ×2 (08:48→21:00)
[2018-12-28] MEDS: clonazePAM 1 MG TABLET PO SCH (08:50)
[2018-12-28] MEDS: MORPHINE 100 MG PO SCH ×2 (08:51→20:47)
[2018-12-28] MEDS: oxyCODONE/APAP 10/325 1 TAB TABLET PO SCH ×2 (08:59→20:47)
--- NOTE | 2018-12-28 09:19 | PDOC ---
PROGRESS NOTES Diagnosis Problem Problems Medical Problems: (1) Acute chest pain Status: Acute Assessment Problems Medical Problems: (1) Acute chest pain Status: Acute Chest pain, resolved. WA ruled out. continue medical mgmt and RF reduction. consider ischemic evaluation if recurrent chest pain once psychiatric issues stable Hallucinations - per PCP/Psych Hypertension - controlled on current therapy Hyperlipidemia - lipid panel pending Subjective c/o continued hallucinations last night, none this am. no chest pain, no dyspnea, no palpitations, no lightheadedness Objective Vital Signs Date Time Temp Pulse Resp B/P (MAP) Pulse Ox O2 Delivery O2 Flow Rate FiO2 12/28/18 08:51 15 Nasal Cannula 12/28/18 08:48 62 116/73 12/28/18 05:06 97.8 93 12/27/18 20:01 Intake and Output 12/28/18 06:59 Intake Total 1560 ml Output Total 1300 ml Balance 260 ml Intake Oral 1560 ml Output Urine Total 1300 ml # Voids 1 # Bowel Movements 1 Physical Exam gen: awake, alert, no acute distress CV: reg rate and rhythm, no obvious murmurs, no gallops, clicks or rubs Lungs: clear without crackles, rhonchi or wheezing abd: soft, bowel sounds present ext: no edema, pulses palpable Review of Relevant I have reviewed the following items eran (where applicable) has been applied. Labs Laboratory Tests Test 12/26/18 13:06 12/26/18 17:49 12/27/18 14:50 12/28/18 05:54 White Blood Count 7.0 x10^3/uL (4.0-11.0) Red Blood Count 4.70 x10^6/uL (3.50-5.40) Hemoglobin 14.5 g/dL (12.0-15.5) Hematocrit 43.2 % (36.0-47.0) Mean Corpuscular Volume 92 fL (79-100) Mean Corpuscular Hemoglobin 31 pg (25-35) Mean Corpuscular Hemoglobin Concent 34 g/dL (31-37) Red Cell Distribution Width 12.7 % (11.5-14.5) Platelet Count 253 x10^3/uL (140-400) Neutrophils (%) (Auto) 55 % (31-73) Lymphocytes (%) (Auto) 36 % (24-48) Monocytes (%) (Auto) 7 % (0-9) Eosinophils (%) (Auto) 1 % (0-3) Basophils (%) (Auto) 1 % (0-3) Neutrophils # (Auto) 3.9 x10^3uL (1.8-7.7) Lymphocytes # (Auto) 2.5 x10^3/uL (1.0-4.8) Monocytes # (Auto) 0.5 x10^3/uL (0.0-1.1) Eosinophils # (Auto) 0.1 x10^3/uL (0.0-0.7) Basophils # (Auto) 0.0 x10^3/uL (0.0-0.2) Prothrombin Time 9.9 SEC (9.4-11.4) Prothromb Time International Ratio 1.0 (0.9-1.1) Sodium Level 141 mmol/L (136-145) 135 mmol/L (136-145) Potassium Level 4.7 mmol/L (3.5-5.1) 3.7 mmol/L (3.5-5.1) Chloride Level 102 mmol/L (98-107) 98 mmol/L (98-107) Carbon Dioxide Level 32 mmol/L (21-32) 34 mmol/L (21-32) Anion Gap 7 (6-14) 3 (6-14) Blood Urea Nitrogen 15 mg/dL (7-20) 17 mg/dL (7-20) Creatinine 0.9 mg/dL (0.6-1.0) 0.8 mg/dL (0.6-1.0) Estimated GFR (Cockcroft-Gault) 63.2 72.4 BUN/Creatinine Ratio 17 (6-20) Glucose Level 83 mg/dL (70-99) 100 mg/dL (70-99) Calcium Level 8.7 mg/dL (8.5-10.1) 8.5 mg/dL (8.5-10.1) Magnesium Level 2.0 mg/dL (1.8-2.4) 2.2 mg/dL (1.8-2.4) Total Bilirubin 0.4 mg/dL (0.2-1.0) Aspartate Amino Transf (AST/SGOT) 19 U/L (15-37) Alanine Aminotransferase (ALT/SGPT) 14 U/L (14-59) Alkaline Phosphatase 113 U/L (46-116) Creatine Kinase 121 U/L (26-192) Troponin I Quantitative < 0.017 ng/mL (0-0.055) < 0.017 ng/mL (0-0.055) < 0.017 ng/mL (0-0.055) WG-Gce-P-Type Natriuretic Peptide 1040 pg/mL (0-124) Total Protein 7.4 g/dL (6.4-8.2) Albumin 3.5 g/dL (3.4-5.0) Albumin/Globulin Ratio 0.9 (1.0-1.7) Lipase 103 U/L (73-393) Urine Opiates Screen Pos (NEG) Urine Methadone Screen Neg (NEG) Urine Barbiturates Neg (NEG) Urine Phencyclidine Screen Neg (NEG) Urine Amphetamine/Methamphetamine Neg (NEG) Urine Benzodiazepines Screen Neg (NEG) Urine Cocaine Screen Neg (NEG) Urine Cannabinoids Screen Neg (NEG) Urine Ethyl Alcohol Neg (NEG) Medications Current Medications Aspirin (Children'S Aspirin) 324 mg 1X ONCE PO Last administered on 12/26/18 13:56; Start 12/26/18 at 14:20; Stop 12/26/18 at 14:22; Status DC Acetaminophen (Tylenol) 650 mg 1X ONCE PO Last administered on 12/26/18 16:20 ; Start 12/26/18 at 16:45; Stop 12/26/18 at 16:46; Status DC Acetaminophen (Tylenol) 325 mg STK-MED ONCE PO ; Start 12/26/18 at 16:17; Stop 12/26/18 at 16:18; Status DC Acetaminophen (Tylenol) 1,000 mg PRN Q8HRS PRN PO PAIN Last administered on 16:23; Start 12/26/18 at 20:45 Calcium Polycarbophil (Fibercon) 625 mg HS PO Last administered on 12/27/18 20 :29; Start 12/26/18 at 21:00 Diclofenac Sodium (Voltaren) 1 humza PRN QID PRN TP PAIN Last administered on 16:23; Start 12/26/18 at 20:45 Metoprolol Tartrate (Lopressor) 25 mg BID PO Last administered on 12/28/18 08: 48; Start 12/26/18 at 21:00 Potassium Chloride (Klor-Con) 20 meq BID PO Last administered on 12/28/18 08: 48; Start 12/26/18 at 21:00 Aspirin (Aspirin Enteric Coated) 81 mg QHS PO Last administered on 12/27/18 20 :28; Start 12/26/18 at 21:00 Bupropion HCl (Wellbutrin Sr) 150 mg BID PO Last administered on 12/27/18 08: 08; Start 12/26/18 at 21:00; Stop 12/27/18 at 18:53; Status DC Non-Formulary Medication (Cinnamon Bark (Cinnamon)) 2,000 mg BID PO ; Start at 21:00; Stop 12/26/18 at 21:15; Status DC Diphenhydramine HCl (Benadryl) 25 mg PRN QHS PRN PO INSOMNIA; Start 12/26/18 at 21:15 Duloxetine HCl (Cymbalta) 30 mg DAILY PO Last administered on 12/28/18 08:47; Start 12/27/18 at 09:00 Furosemide (Lasix) 20 mg BID PO Last administered on 12/28/18 08:47; Start at 21:00 Ibuprofen (Motrin) 800 mg PRN Q6HRS PRN PO INFLAMMATION Last administered on 14:02; Start 12/26/18 at 21:15 Lidocaine (Lidoderm) 1 patch PRN DAILY PRN TD PAIN Last administered on 14:03; Start 12/27/18 at 09:00 Cetirizine HCl (ZyrTEC) 10 mg QHS PO Last administered on 12/27/18 20:28; Start 12/26/18 at 21:00 Promethazine HCl (Phenergan) 25 mg PRN Q4HRS PRN PO NAUSEA/VOMITING; Start at 21:15 Famotidine (Pepcid) 20 mg QHS PO Last administered on 12/27/18 20:29; Start at 21:00 Tizanidine HCl (Zanaflex) 4 mg BID PO Last administered on 12/28/18 08:48; Start 12/26/18 at 21:00 Morphine Sulfate (Ms Contin) 100 mg BID PO Last administered on 12/28/18 08:51 ; Start 12/27/18 at 09:00 Oxycodone/ Acetaminophen (Percocet 10/325) 1 tab BID PO ; Start 12/27/18 at 21: 00 Alprazolam (Xanax) 1 mg PRN Q6HRS PRN PO ANXIETY / AGITATION Last administered on 12/27/18 16:23; Start 12/27/18 at 14:45 Clonazepam (KlonoPIN) 1 mg DAILY PO Last administered on 12/28/18 08:50; Start 12/28/18 at 09:00 Clonazepam (KlonoPIN) 2 mg HS PO Last administered on 12/27/18 20:29; Start at 21:00 Isosorbide Mononitrate (Imdur) 30 mg DAILY PO Last administered on 12/28/18 08 :48; Start 12/28/18 at 09:00 Olanzapine (ZyPREXA) 2.5 mg PRN Q2HR PRN PO HALLUCINATIONS Last administered on 12/27/18 20:28; Start 12/27/18 at 18:45 Active Scripts Active Reported Morphine Sulfate Er (Morphine Sulfate) 60 Mg Tablet.er 100 Mg PO BID Tylenol (Acetaminophen) 325 Mg Tablet 1,000 Mg PO PRN Q8HRS PRN Ibuprofen 800 Mg Tablet 1 Tab PO PRN Q6HRS PRN Alprazolam 1 Mg Tablet 1 Tab PO PRN Q6HRS PRN Claritin (Loratadine) 10 Mg Tablet 1 Tab PO HS Ranitidine Hcl 75 Mg Tablet 75 Mg PO HS Cymbalta (Duloxetine Hcl) 30 Mg Capsule.dr 1 Cap PO DAILY Clonazepam 1 Mg Tablet 1 Mg PO DAILY Zanaflex (Tizanidine HCl) 4 Mg Tablet 4 Mg PO BID Promethazine Hcl 12.5 Mg Tablet 2 Tab PO Q4-6HRS PRN Potassium Chloride 20 Meq Tab.er.prt 1 Tab PO BID Oxycodone-Acetaminophen 10-325 (Oxycodone Hcl/Acetaminophen) 1 Each Tablet 1 Tab PO BID Lidoderm (Lidocaine) 700 Mg Adh..patch 1 Patch TP DAILY PRN Lasix (Furosemide) 40 Mg Tablet 20 Mg PO BID Diphenhydramine Hcl 50 Mg Capsule 1-2 Cap PO QHS PRN Voltaren (Diclofenac Sodium) 100 Gm Gel..gram. 1 Gm TP QID PRN Fibercon (Calcium Polycarbophil) 625 Mg Tablet 625 Mg PO HS Cinnamon (Cinnamon Bark) 500 Mg Capsule 2,000 Mg PO BID Aspirin Ec (Aspirin) 81 Mg Tablet.dr 1 Tab PO HS Metoprolol Tartrate 25 Mg Tablet 25 Mg PO BID Bupropion Hcl Sr (Bupropion Hcl) 150 Mg Tablet.er 150 Mg PO BID Clonazepam 1 Mg Tablet 2 Mg PO HS Vitals/I & O Vital Sign - Last 24 Hours 12/27/18 12/27/18 12/27/18 12/27/18 11:05 15:30 19:35 20:01 Temp 97.1 98.5 98.1 Pulse 63 73 63 Resp 22 22 22 B/P (MAP) 117/67 (84) 146/81 (102) 117/73 (88) Pulse Ox 93 93 92 O2 Delivery Room Air Room Air Room Air Room Air O2 Flow Rate 12/27/18 12/27/18 12/27/18 12/28/18 20:29 20:29 22:16 00:35 Temp 98.3 Pulse 63 61 Resp 18 24 18 B/P (MAP) 117/73 118/76 (90) Pulse Ox 91 O2 Delivery Room Air Room Air Room Air 12/28/18 12/28/18 12/28/18 12/28/18 05:06 08:48 08:48 08:51 Temp 97.8 Pulse 62 62 62 Resp 20 15 B/P (MAP) 116/73 (87) 116/73 116/73 Pulse Ox 93 O2 Delivery Room Air Nasal Cannula Intake and Output 12/27/18 12/27/18 12/28/18 14:59 22:59 06:59 Intake Total 600 ml 960 ml Output Total 250 ml 400 ml 650 ml Balance 350 ml 560 ml -650 ml KENDRICK TRAORE APRN Dec 28, 2018 09:19
[2018-12-28] MEDS ORDERED: ACETAMINOPHEN 500 MG TABLET PO PRN (10:15)
[2018-12-28 10:30] VITALS: BP 97/58
[2018-12-28 14:55] VITALS: BP 95/60
--- NOTE | 2018-12-28 15:43 | CARD ---
MR#: [id number] Date of Study: 12/28/2018 Ordering Physician: KENDRICK TRAORE, Referring Physician: DEBBIE IGLESIAS Tech: Yvette Sanchez RUOLA APPROVED REPORT EXAM: Two-dimensional and M-mode echocardiogram with Doppler and color Doppler. Other Information Quality : Technically LimitedHR: 62bpm Rhythm : NSRTechnically limited study due to body habitus. INDICATION Chest Pain 2D DIMENSIONS RVDd3.1 (2.9-3.5cm)Left Atrium(2D)3.1 (1.6-4.0cm) IVSd0.9 (0.7-1.1cm)Aortic Root(2D)3.0 (2.0-3.7cm) LVDd3.9 (3.9-5.9cm)LVOT Diameter2.0 (1.8-2.4cm) PWd1.0 (0.7-1.1cm)LVDs2.6 (2.5-4.0cm) FS (%) 32.5 %SV40.4 ml LVEF(%)61.5 (>50%) M-Mode DIMENSIONS Left Atrium(MM)3.09 (2.5-4.0cm)IVSd1.08 (0.7-1.1cm) Aortic Root2.71 (2.2-3.7cm)LVDd4.45 (4.0-5.6cm) PWd0.78 (0.7-1.1cm)FS (%) 47 % LVDs2.37 (2.0-3.8cm)ESV(Teich)19.6 ml LVEF(%)78 (>50%) Aortic Valve AoV Peak Wali.114.6cm/sAoV VTI27.7cm AO Peak GR.5.3mmHgLVOT Peak Wali.97.4cm/s LVOT VTI 22.51cmAO Mean GR.3mmHg SANDRA (VMAX)2.74lg4MCC (VTI)2.51cm2 Mitral Valve MV E Bsmnlxpu839.9cm/sMV DECEL [id number] MV A Yqyldjet44.1cm/sE/A Ratio1.2 Pulmonary Valve PV Peak Xkwrenmn23.0cm/sPV Peak Grad.3mmHg Tricuspid Valve TR P. [id number]/sRAP [id number] TR Peak Gr.09ibUuZQAC60kbMq LEFT VENTRICLE The left ventricle is normal size. There is normal left ventricular wall thickness. The left ventricu lar systolic function is normal. The Ejection Fraction is 60-65%. There is normal LV segmental wall m otion. Transmitral Doppler flow pattern is Grade II-pseudonormal filling dynamics. RIGHT VENTRICLE The right ventricle is normal size. There is normal right ventricular wall thickness. The right ventr icular systolic function is normal. ATRIA The left atrium size is normal. The right atrium size is normal. The interatrial septum is intact wit h no evidence for an atrial septal defect or patent foramen ovale as noted on 2-D or Doppler imaging. AORTIC VALVE The aortic valve is normal in structure and function. The aortic valve is trileaflet. Doppler and Col or Flow revealed no significant aortic regurgitation. There is no significant aortic valvular stenosi s. MITRAL VALVE The mitral valve is normal in structure and function. There is no evidence of mitral valve prolapse. There is no mitral valve stenosis. Doppler and Color Flow revealed no mitral valve regurgitation note d. TRICUSPID VALVE The tricuspid valve is normal in structure and function. Doppler and Color Flow revealed trace tricus pid regurgitation. The PA pressure was estimated at 24 mmHg. There is no tricuspid valve prolapse or vegetation. There is no tricuspid valve stenosis. PULMONIC VALVE The pulmonic valve is not well visualized. GREAT VESSELS The aortic root is normal in size. The ascending aorta is normal in size. The IVC is normal in size a nd collapses >50% with inspiration. PERICARDIAL EFFUSION There is no evidence of significant pericardial effusion. Critical Notification Critical Value: No <Conclusion> The left ventricular systolic function is normal. The Ejection Fraction is 60-65%. There is normal LV segmental wall motion. Transmitral Doppler flow pattern is Grade II-pseudonormal filling dynamics. Doppler and Color Flow revealed trace tricuspid regurgitation. The PA pressure was estimated at 24 mmHg. There is no evidence of significant pericardial effusion. Signed by : Nick Alvarez, Electronically Approved : 12/28/2018 15:43:21
--- NOTE | 2018-12-28 18:11 | PDOC ---
Exam Note: Jayden Note: Please also refer to the separate dictated note~for this date of service dictated separately.~Patient seen individually. Discussed the patient with Nursing staff reviewed the chart.~Reviewed interim history and current functioning. Reviewed vital signs,~Labs/ Radiology~and current medications noted below. Continue current treatment with the changes noted in the dictated addendum note Assessment: Vital Signs: Vital Signs Date Time Temp Pulse Resp B/P (MAP) Pulse Ox O2 Delivery O2 Flow Rate FiO2 12/28/18 14:55 98.1 65 20 95/60 (72) 93 Room Air 12/27/18 20:01 I&O Intake and Output 12/28/18 07:00 Intake Total 1560 ml Output Total 1300 ml Balance 260 ml Intake Oral 1560 ml Output Urine Total 1300 ml # Voids 1 # Bowel Movements 1 Labs: Laboratory Tests Test 12/28/18 05:54 Sodium Level 135 mmol/L (136-145) L Potassium Level 3.7 mmol/L (3.5-5.1) Chloride Level 98 mmol/L (98-107) Carbon Dioxide Level 34 mmol/L (21-32) H Anion Gap 3 (6-14) L Blood Urea Nitrogen 17 mg/dL (7-20) Creatinine 0.8 mg/dL (0.6-1.0) Estimated GFR (Cockcroft-Gault) 72.4 Glucose Level 100 mg/dL (70-99) H Calcium Level 8.5 mg/dL (8.5-10.1) Magnesium Level 2.2 mg/dL (1.8-2.4) Triglycerides Level 115 mg/dL (0-150) Cholesterol Level 206 mg/dL (0-200) H LDL Cholesterol, Calculated 146 mg/dL (0-100) H VLDL Cholesterol, Calculated 23 mg/dL (0-40) Non-HDL Cholesterol Calculated 169 mg/dL (0-129) H HDL Cholesterol 37 mg/dL (40-60) L Cholesterol/HDL Ratio 5.0 Current Medications: Meds: Current Medications Aspirin (Children'S Aspirin) 324 mg 1X ONCE PO Last administered on 12/26/18at 13:56; Start 12/26/18 at 14:20; Stop 12/26/18 at 14:22; Status DC Acetaminophen (Tylenol) 650 mg 1X ONCE PO Last administered on 12/26/18at 16:20 ; Start 12/26/18 at 16:45; Stop 12/26/18 at 16:46; Status DC Acetaminophen (Tylenol) 325 mg STK-MED ONCE PO ; Start 12/26/18 at 16:17; Stop 12/26/18 at 16:18; Status DC Acetaminophen (Tylenol) 1,000 mg PRN Q8HRS PRN PO PAIN Last administered on 16:23; Start 12/26/18 at 20:45; Stop 12/28/18 at 10:00; Status DC Calcium Polycarbophil (Fibercon) 625 mg HS PO Last administered on 12/27/18 20 :29; Start 12/26/18 at 21:00 Diclofenac Sodium (Voltaren) 1 humza PRN QID PRN TP PAIN Last administered on 16:23; Start 12/26/18 at 20:45 Metoprolol Tartrate (Lopressor) 25 mg BID PO Last administered on 12/28/18 08: 48; Start 12/26/18 at 21:00 Potassium Chloride (Klor-Con) 20 meq BID PO Last administered on 12/28/18 08: 48; Start 12/26/18 at 21:00 Aspirin (Aspirin Enteric Coated) 81 mg QHS PO Last administered on 12/27/18 20 :28; Start 12/26/18 at 21:00 Bupropion HCl (Wellbutrin Sr) 150 mg BID PO Last administered on 12/27/18 08: 08; Start 12/26/18 at 21:00; Stop 12/27/18 at 18:53; Status DC Non-Formulary Medication (Cinnamon Bark (Cinnamon)) 2,000 mg BID PO ; Start at 21:00; Stop 12/26/18 at 21:15; Status DC Diphenhydramine HCl (Benadryl) 25 mg PRN QHS PRN PO INSOMNIA; Start 12/26/18 at 21:15 Duloxetine HCl (Cymbalta) 30 mg DAILY PO Last administered on 12/28/18 08:47; Start 12/27/18 at 09:00 Furosemide (Lasix) 20 mg BID PO Last administered on 12/28/18 08:47; Start at 21:00 Ibuprofen (Motrin) 800 mg PRN Q6HRS PRN PO INFLAMMATION Last administered on 14:02; Start 12/26/18 at 21:15 Lidocaine (Lidoderm) 1 patch PRN DAILY PRN TD PAIN Last administered on 14:03; Start 12/27/18 at 09:00 Cetirizine HCl (ZyrTEC) 10 mg QHS PO Last administered on 12/27/18 20:28; Start 12/26/18 at 21:00 Promethazine HCl (Phenergan) 25 mg PRN Q4HRS PRN PO NAUSEA/VOMITING; Start at 21:15 Famotidine (Pepcid) 20 mg QHS PO Last administered on 12/27/18 20:29; Start at 21:00 Tizanidine HCl (Zanaflex) 4 mg BID PO Last administered on 12/28/18 08:48; Start 12/26/18 at 21:00 Morphine Sulfate (Ms Contin) 100 mg BID PO Last administered on 12/28/18 08:51 ; Start 12/27/18 at 09:00 Oxycodone/ Acetaminophen (Percocet 10/325) 1 tab BID PO ; Start 12/27/18 at 21: 00 Alprazolam (Xanax) 1 mg PRN Q6HRS PRN PO ANXIETY / AGITATION Last administered on 12/27/18 16:23; Start 12/27/18 at 14:45 Clonazepam (KlonoPIN) 1 mg DAILY PO Last administered on 12/28/18 08:50; Start 12/28/18 at 09:00 Clonazepam (KlonoPIN) 2 mg HS PO Last administered on 12/27/18 20:29; Start at 21:00 Isosorbide Mononitrate (Imdur) 30 mg DAILY PO Last administered on 12/28/18 08 :48; Start 12/28/18 at 09:00 Olanzapine (ZyPREXA) 2.5 mg PRN Q2HR PRN PO HALLUCINATIONS Last administered on 12/27/18 20:28; Start 12/27/18 at 18:45 Acetaminophen (Tylenol) 1,000 mg PRN Q8HRS PRN PO PAIN; Start 12/28/18 at 10:15 Active Scripts Active Reported Morphine Sulfate Er (Morphine Sulfate) 60 Mg Tablet.er 100 Mg PO BID Tylenol (Acetaminophen) 325 Mg Tablet 1,000 Mg PO PRN Q8HRS PRN Ibuprofen 800 Mg Tablet 1 Tab PO PRN Q6HRS PRN Alprazolam 1 Mg Tablet 1 Tab PO PRN Q6HRS PRN Claritin (Loratadine) 10 Mg Tablet 1 Tab PO HS Ranitidine Hcl 75 Mg Tablet 75 Mg PO HS Cymbalta (Duloxetine Hcl) 30 Mg Capsule.dr 1 Cap PO DAILY Clonazepam 1 Mg Tablet 1 Mg PO DAILY Zanaflex (Tizanidine HCl) 4 Mg Tablet 4 Mg PO BID Promethazine Hcl 12.5 Mg Tablet 2 Tab PO Q4-6HRS PRN Potassium Chloride 20 Meq Tab.er.prt 1 Tab PO BID Oxycodone-Acetaminophen 10-325 (Oxycodone Hcl/Acetaminophen) 1 Each Tablet 1 Tab PO BID Lidoderm (Lidocaine) 700 Mg Adh..patch 1 Patch TP DAILY PRN Lasix (Furosemide) 40 Mg Tablet 20 Mg PO BID Diphenhydramine Hcl 50 Mg Capsule 1-2 Cap PO QHS PRN Voltaren (Diclofenac Sodium) 100 Gm Gel..gram. 1 Gm TP QID PRN Fibercon (Calcium Polycarbophil) 625 Mg Tablet 625 Mg PO HS Cinnamon (Cinnamon Bark) 500 Mg Capsule 2,000 Mg PO BID Aspirin Ec (Aspirin) 81 Mg Tablet.dr 1 Tab PO HS Metoprolol Tartrate 25 Mg Tablet 25 Mg PO BID Bupropion Hcl Sr (Bupropion Hcl) 150 Mg Tablet.er 150 Mg PO BID Clonazepam 1 Mg Tablet 2 Mg PO HS I have reviewed the current psychotropics carefully including drug interactions. Risk benefit ratio favors no change other than as noted in my dictated progress note. Diagnosis: Problems: (1) Anxiety disorder (2) Bipolar affective, mixed (3) Impulse control disorder ESME MORRISON MD Dec 28, 2018 18:11
[2018-12-28 20:37] VITALS: BP 102/60
[2018-12-28] MEDS: CALCIUM POLYCARBOPHIL 625 MG TABLET PO SCH (20:46)
[2018-12-28] MEDS: ASPIRIN ENTERIC COATED 81 MG TABLET.DR. PO SCH (20:46)
[2018-12-28] MEDS: clonazePAM 2 MG TABLET PO SCH (20:46)
[2018-12-28] MEDS: CETIRIZINE HCL 10 MG TABLET PO SCH (20:47)
[2018-12-28] MEDS: FAMOTIDINE 20 MG TABLET PO SCH (20:47)
[2018-12-28 23:10] VITALS: BP 129/66
[2018-12-29 06:33] VITALS: BP_SYST 134; BP_DIAS 76; BP_DIAS 82
[2018-12-29] MEDS: MORPHINE 100 MG PO SCH (08:36)
[2018-12-29] MEDS: DULoxetine HCL 30 MG CAPSULE.DR PO SCH (08:36)
[2018-12-29] MEDS: POTASSIUM CHLORIDE 20 MEQ TABLET.ER. PO SCH (08:36)
[2018-12-29] MEDS: METOPROLOL TART IMMED RELEASE 25 MG TABLET PO SCH (08:37)
[2018-12-29] MEDS: ISOSORBIDE MONONITRATE ER 30 MG TAB.ER.24H PO SCH (08:38)
[2018-12-29] MEDS: FUROSEMIDE 20 MG TABLET PO SCH (08:38)
[2018-12-29] MEDS: oxyCODONE/APAP 10/325 1 TAB TABLET PO SCH (08:41)
[2018-12-29] MEDS: clonazePAM 1 MG TABLET PO SCH (08:41)
[2018-12-29] MEDS: tiZANidine 4 MG TABLET. PO SCH (08:43)
--- NOTE | 2018-12-29 08:52 | PN ---
DATE: 12/28/2018 SUBJECTIVE: The patient is sitting comfortably in her chair, sleeping, in no apparent distress. On questioning her, she denied any chest pain, shortness of breath. She has had no further episode. She was not sure about her hallucination. PHYSICAL EXAMINATION: GENERAL: When I examined her, she was pale, but no jaundice, cyanosis or thyromegaly. No jugular venous distension. No lower limb edema. VITAL SIGNS: Her heart rate was 64, blood pressure was 97/58, temperature was 98.3, respiratory rate was 20 and oxygen saturation was 93% on room air. HEAD, EYES, EARS, NOSE AND THROAT: Showed normocephalic, atraumatic. NECK: Supple. HEART: Showed normal first and second heart sounds. No gallop, rub or murmur. CHEST: Clear to auscultation. No crepitation or rhonchi. ABDOMEN: Distended, soft, nontender. No guarding or rigidity. No organomegaly. All hernial orifice intact. Bowel sounds normal. NEUROLOGIC: She was sleepy, but arousable. Her cranial nerves are intact. She moves extremities without difficulty. She ambulates with cane. Her intake was 1560, output was 1300. LABORATORY DATA: This morning showed a serum sodium 135, potassium 3.7, chloride 98, bicarbonate 34, anion gap of 3, BUN 17, creatinine 0.8. Estimated GFR was 72 mL per minute. Her glucose 100, calcium was 8.2 and magnesium was 2.2. She has 3 sets of troponin, all of them were still less than 0.017. 1. ASSESSMENT: Chest pain with myocardial infarction ruled out. She has 3 sets of cardiac enzymes that were negative. The patient has also episodes of hallucination and we did consult Dr. Soares who has not seen her yet. PLAN: To continue all her current medication. Await evaluation by the psychiatrist and decide whether the patient can go home with adjustment of her medication and/or can be transferred to [facility] if she is ease at. DEBBIE IGLESIAS MD DR: BREANNE/thiago JOB#: [id number] / [id number]
--- NOTE | 2018-12-29 09:11 | CONS ---
DATE OF CONSULTATION: 12/27/2018 PSYCHIATRIC CONSULTATION This is a late entry for 12/27/2018 covers elements not covered in my initial note. IDENTIFYING DATA: The patient is a 63-year-old female seen in bed 120, [facility] for a psychiatric consult requested by Dr. Ash after the patient was having active hallucinations at home, called the police, felt a men coming into her house and her car was broken, none of which was true. She was being taken to the [facility] for psychiatric evaluation, but on the way, complained of chest pain and was diverted to [facility]. The patient was seen individually in the evening of 12/27/2018. Discussed with nursing staff, reviewed the chart. CHIEF COMPLAINT: "I have been seeing these men. I see them here as well. I don't know what is happening. My mind is otherwise clear. I am just hallucinating. My sister took an overdose and when she was 52 years old and another sister was depressed. I was in 1994 and was having mood swings and diagnosed with bipolar disorder, but I have not been in any treatment." HISTORY OF PRESENT ILLNESS: The patient reportedly lives at home alone and has been driving and otherwise functioning in the community. Over the last several days, she has had active hallucinations, believing people are entering her home, breaking up a car, the men coming into her home. Despite this, she states she has been reasonably cognitively intact with orientation. No active suicidal or homicidal ideation. She has also been seeing her father while here in the hospital and crickets running around her room in the hospital. She is quite sedated as I met with her in the evening frequently falling off to sleep. She had called EMS and was diverted to our ER because of chest pain and so is being taken at the [facility] for psychiatric evaluation. PAST PSYCHIATRIC HISTORY: As noted above. The patient admits to having used marijuana in younger years. PAST MEDICAL HISTORY: Positive for hypertension, hyperlipidemia, nephrotic syndrome, chronic pain, asthma, chronic pancreatitis, chest pain. PAST SURGICAL HISTORY: History of tonsillectomy, adenoidectomy, cholecystectomy, colectomy, colostomy. ALLERGIES: HORSE AND EQUINE PRODUCTS. CURRENT PSYCHOTROPICS: Wellbutrin XL 150 mg a day, Cymbalta 30 mg a day, Xanax 1 mg q. 6 hours p.r.n. anxiety, Klonopin 1 mg a.m. and 2 mg at bedtime. FAMILY HISTORY: Sister of an overdose at age 52. Another sister had diagnosis of depression and , details unclear. SOCIAL HISTORY: The patient lives alone at home by herself. 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 She has 3 sons. She has been on high doses of MS Contin and oxycodone per Dr. Maribell Wallace, her primary care physician for chronic pain. SOCIAL HISTORY: The patient was in 1994. No alcohol or drug abuse history. MENTAL STATUS EXAMINATION: The patient was seen individually in her room. She is reasonably oriented, but frequently dropping off to sleep and actively hallucinating, looking at things in the bed and trying to sort them away. Speech coherent, at times pressured. Abstraction fair, computation impaired, language function intact, attention span short. Mood and affect somewhat withdrawn. LABORATORY DATA: Reviewed. IMPRESSION: Psychotic disorder, unspecified, rule out bipolar disorder, mixed with psychotic features; anxiety disorder, unspecified; cognitive disorder, unspecified. Rest as above. RECOMMENDATIONS: From a psychiatric standpoint, I would suggest having a CT head done to make sure there is no intracranial lesion to account for her symptoms since one has not been done. Start Zyprexa 2.5 mg q. 2 hours p.r.n. psychosis, agitation, max 10 mg in 24 hours. The psychotic symptoms could be partly contributed by her narcotic usage fairly high dosages, but we will go ahead and stop the Wellbutrin since this could increase the chance of hallucinations due to its dopaminergic effect. Continue Klonopin, but may need to be tapered in the future. Maintain Xanax along with Cymbalta. Given the fact that the patient lives alone, it is unlikely she will be able to function safely there in her current mental status and once she is medically cleared and stable for any factors that could cause psychotic symptoms, she may need inpatient psychiatric hospitalization. Dr. Ash, thank you for the opportunity to participate in your patient's care. We will follow with you. MAN Mitchell MORRISON MD DR: WILL/thiago JOB#: [id number] / [id number]
--- NOTE | 2018-12-29 09:21 | PDOC ---
PROGRESS NOTES Diagnosis Problem Problems Medical Problems: (1) Acute chest pain Status: Acute Assessment Problems Medical Problems: (1) Acute chest pain Status: Acute Chest pain, resolved. GA ruled out. continue medical mgmt and RF reduction. Outpatient follow up and possible ischemic eval if recurrent chest pain. Hallucinations - resolved, per PCP/Psych Hypertension - controlled on current therapy Hyperlipidemia - add statin and recheck in 6-8 weeks Subjective feeling much better, "ready to go home" no chest pain since admission, no more hallucinations, no dyspnea, no palpitations Objective Echo The left ventricular systolic function is normal. The Ejection Fraction is 60-65%. There is normal LV segmental wall motion. Transmitral Doppler flow pattern is Grade II-pseudonormal filling dynamics. Doppler and Color Flow revealed trace tricuspid regurgitation. The PA pressure was estimated at 24 mmHg. There is no evidence of significant pericardial effusion. Vital Signs Date Time Temp Pulse Resp B/P (MAP) Pulse Ox O2 Delivery O2 Flow Rate FiO2 12/29/18 08:38 63 134/82 12/29/18 06:33 20 97 Room Air 12/28/18 23:10 98.2 12/27/18 20:01 Intake and Output 12/29/18 07:00 Intake Total 1120 ml Output Total 301 ml Balance 819 ml Intake Oral 1120 ml Output Urine Total 301 ml # Voids 4 Physical Exam gen: Awake, alert, oriented x 3, no acute distress CV: reg rate and rhythm, no gallops, clicks or rubs Lungs: clear abd: bowel sounds present ext: no clubbing, cyanosis or edema, pulses palpable Review of Relevant I have reviewed the following items eran (where applicable) has been applied. Labs Laboratory Tests Test 12/27/18 14:50 12/28/18 05:54 Troponin I Quantitative < 0.017 ng/mL (0-0.055) Sodium Level 135 mmol/L (136-145) Potassium Level 3.7 mmol/L (3.5-5.1) Chloride Level 98 mmol/L (98-107) Carbon Dioxide Level 34 mmol/L (21-32) Anion Gap 3 (6-14) Blood Urea Nitrogen 17 mg/dL (7-20) Creatinine 0.8 mg/dL (0.6-1.0) Estimated GFR (Cockcroft-Gault) 72.4 Glucose Level 100 mg/dL (70-99) Calcium Level 8.5 mg/dL (8.5-10.1) Magnesium Level 2.2 mg/dL (1.8-2.4) Triglycerides Level 115 mg/dL (0-150) Cholesterol Level 206 mg/dL (0-200) LDL Cholesterol, Calculated 146 mg/dL (0-100) VLDL Cholesterol, Calculated 23 mg/dL (0-40) Non-HDL Cholesterol Calculated 169 mg/dL (0-129) HDL Cholesterol 37 mg/dL (40-60) Cholesterol/HDL Ratio 5.0 Medications Current Medications Aspirin (Children'S Aspirin) 324 mg 1X ONCE PO Last administered on 12/26/18 13:56; Start 12/26/18 at 14:20; Stop 12/26/18 at 14:22; Status DC Acetaminophen (Tylenol) 650 mg 1X ONCE PO Last administered on 12/26/18 16:20 ; Start 12/26/18 at 16:45; Stop 12/26/18 at 16:46; Status DC Acetaminophen (Tylenol) 325 mg STK-MED ONCE PO ; Start 12/26/18 at 16:17; Stop 12/26/18 at 16:18; Status DC Acetaminophen (Tylenol) 1,000 mg PRN Q8HRS PRN PO PAIN Last administered on 16:23; Start 12/26/18 at 20:45; Stop 12/28/18 at 10:00; Status DC Calcium Polycarbophil (Fibercon) 625 mg HS PO Last administered on 12/28/18 20 :46; Start 12/26/18 at 21:00 Diclofenac Sodium (Voltaren) 1 humza PRN QID PRN TP PAIN Last administered on 16:23; Start 12/26/18 at 20:45 Metoprolol Tartrate (Lopressor) 25 mg BID PO Last administered on 12/29/18 08: 37; Start 12/26/18 at 21:00 Potassium Chloride (Klor-Con) 20 meq BID PO Last administered on 12/29/18 08: 36; Start 12/26/18 at 21:00 Aspirin (Aspirin Enteric Coated) 81 mg QHS PO Last administered on 12/28/18 20 :46; Start 12/26/18 at 21:00 Bupropion HCl (Wellbutrin Sr) 150 mg BID PO Last administered on 12/27/18 08: 08; Start 12/26/18 at 21:00; Stop 12/27/18 at 18:53; Status DC Non-Formulary Medication (Cinnamon Bark (Cinnamon)) 2,000 mg BID PO ; Start at 21:00; Stop 12/26/18 at 21:15; Status DC Diphenhydramine HCl (Benadryl) 25 mg PRN QHS PRN PO INSOMNIA; Start 12/26/18 at 21:15 Duloxetine HCl (Cymbalta) 30 mg DAILY PO Last administered on 12/29/18 08:36; Start 12/27/18 at 09:00 Furosemide (Lasix) 20 mg BID PO Last administered on 12/29/18 08:38; Start at 21:00 Ibuprofen (Motrin) 800 mg PRN Q6HRS PRN PO INFLAMMATION Last administered on 14:02; Start 12/26/18 at 21:15 Lidocaine (Lidoderm) 1 patch PRN DAILY PRN TD PAIN Last administered on 14:03; Start 12/27/18 at 09:00 Cetirizine HCl (ZyrTEC) 10 mg QHS PO Last administered on 12/28/18 20:47; Start 12/26/18 at 21:00 Promethazine HCl (Phenergan) 25 mg PRN Q4HRS PRN PO NAUSEA/VOMITING; Start at 21:15 Famotidine (Pepcid) 20 mg QHS PO Last administered on 12/28/18 20:47; Start at 21:00 Tizanidine HCl (Zanaflex) 4 mg BID PO Last administered on 12/29/18 08:43; Start 12/26/18 at 21:00 Morphine Sulfate (Ms Contin) 100 mg BID PO Last administered on 12/29/18 08:36 ; Start 12/27/18 at 09:00 Oxycodone/ Acetaminophen (Percocet 10/325) 1 tab BID PO ; Start 12/27/18 at 21: 00 Alprazolam (Xanax) 1 mg PRN Q6HRS PRN PO ANXIETY / AGITATION Last administered on 12/27/18 16:23; Start 12/27/18 at 14:45 Clonazepam (KlonoPIN) 1 mg DAILY PO Last administered on 12/28/18at 08:50; Start 12/28/18 at 09:00 Clonazepam (KlonoPIN) 2 mg HS PO Last administered on 12/28/18at 20:46; Start at 21:00 Isosorbide Mononitrate (Imdur) 30 mg DAILY PO Last administered on 12/29/18at 08 :38; Start 12/28/18 at 09:00 Olanzapine (ZyPREXA) 2.5 mg PRN Q2HR PRN PO HALLUCINATIONS Last administered on 12/27/18at 20:28; Start 12/27/18 at 18:45 Acetaminophen (Tylenol) 1,000 mg PRN Q8HRS PRN PO PAIN; Start 12/28/18 at 10:15 Active Scripts Active Reported Morphine Sulfate Er (Morphine Sulfate) 60 Mg Tablet.er 100 Mg PO BID Tylenol (Acetaminophen) 325 Mg Tablet 1,000 Mg PO PRN Q8HRS PRN Ibuprofen 800 Mg Tablet 1 Tab PO PRN Q6HRS PRN Alprazolam 1 Mg Tablet 1 Tab PO PRN Q6HRS PRN Claritin (Loratadine) 10 Mg Tablet 1 Tab PO HS Ranitidine Hcl 75 Mg Tablet 75 Mg PO HS Cymbalta (Duloxetine Hcl) 30 Mg Capsule. 1 Cap PO DAILY Clonazepam 1 Mg Tablet 1 Mg PO DAILY Zanaflex (Tizanidine HCl) 4 Mg Tablet 4 Mg PO BID Promethazine Hcl 12.5 Mg Tablet 2 Tab PO Q4-6HRS PRN Potassium Chloride 20 Meq Tab.er.prt 1 Tab PO BID Oxycodone-Acetaminophen 10-325 (Oxycodone Hcl/Acetaminophen) 1 Each Tablet 1 Tab PO BID Lidoderm (Lidocaine) 700 Mg Adh..patch 1 Patch TP DAILY PRN Lasix (Furosemide) 40 Mg Tablet 20 Mg PO BID Diphenhydramine Hcl 50 Mg Capsule 1-2 Cap PO QHS PRN Voltaren (Diclofenac Sodium) 100 Gm Gel..gram. 1 Gm TP QID PRN Fibercon (Calcium Polycarbophil) 625 Mg Tablet 625 Mg PO HS Cinnamon (Cinnamon Bark) 500 Mg Capsule 2,000 Mg PO BID Aspirin Ec (Aspirin) 81 Mg Tablet. 1 Tab PO HS Metoprolol Tartrate 25 Mg Tablet 25 Mg PO BID Bupropion Hcl Sr (Bupropion Hcl) 150 Mg Tablet.er 150 Mg PO BID Clonazepam 1 Mg Tablet 2 Mg PO HS Vitals/I & O Vital Sign - Last 24 Hours 12/28/18 12/28/18 12/28/18 12/28/18 10:30 14:55 19:20 20:37 Temp 98.3 98.1 98.2 Pulse 64 65 74 Resp 20 20 18 B/P (MAP) 97/58 (71) 95/60 (72) 102/60 (74) Pulse Ox 93 93 92 O2 Delivery Room Air Room Air Room Air Room Air 12/28/18 12/28/18 12/29/18 12/29/18 20:47 23:10 01:07 06:33 Temp 98.2 Pulse 83 63 Resp 20 20 18 20 B/P (MAP) 129/66 (87) 134/82 (99) Pulse Ox 94 97 O2 Delivery Room Air Room Air Room Air 12/29/18 12/29/18 08:37 08:38 Pulse 63 63 B/P (MAP) 134/82 134/82 Intake and Output 12/28/18 12/28/18 12/29/18 15:00 23:00 07:00 Intake Total 640 ml 120 ml 360 ml Output Total 300 ml 1 ml Balance 340 ml 119 ml 360 ml KENDRICK TRAORE APRN Dec 29, 2018 09:21
[2018-12-29 10:05] VITALS: BP 120/76
[2018-12-29 15:11] VITALS: BP 96/60
--- NOTE | 2018-12-29 17:49 | DS ---
DATE OF DISCHARGE: 12/29/2018 HISTORY OF PRESENT ILLNESS: The patient is a 63-year-old female patient, who was admitted with a complaint of chest pain that is retrosternal, radiating to the left shoulder and left jaw, lasted about 15 minutes and rated about 6/10 in severity associated with nausea and shortness of breath, palpitation, dizziness and diaphoresis. She has had 3 sets of cardiac enzymes that ruled out myocardial infarction. She was seen by the Cardiology team and has had an echocardiogram done, which showed that she has left ventricular systolic function, which is normal; ejection fraction was 60-65%. She has normal left ventricular segmental wall motion. She has grade 2 pseudonormal filling dynamics, trace tricuspid regurgitation, and pulmonary artery pressure was estimated at 24 mmHg. There is no evidence of significant pericardial effusion as she has vivid hallucination. She was seen in consultation by Dr. Soares, who did recommend [facility]. The patient refused and therefore, Dr. Soares suggested to continue followup with [facility] and also primary care physician to continue attempting to reduce her narcotic intake. He recommended discontinue Wellbutrin since this could increase the chances of hallucination due to its dopaminergic effect; continue Klonopin, but may need to be tapered in the future and to maintain Xanax along with Cymbalta. PHYSICAL EXAMINATION: GENERAL: When I examined her today, she looked well and was clearly in no apparent respiratory distress. She was definitely more awake, alert, walking around with a walker without any difficulty. When I examined her, she was pale, no jaundice, cyanosis, or thyromegaly. No jugular venous distension. No limb edema. VITAL SIGNS: Her heart rate was 72, blood pressure was 120/76, temperature was 96, respiratory rate was 20, and oxygen saturation was 96% on room air. HEAD, EYES, EARS, NOSE AND THROAT: Normocephalic, atraumatic. NECK: Supple. HEART: Showed normal first and second heart sounds with no gallop, rub or murmur. CHEST: Clear to auscultation. No crepitation or rhonchi. ABDOMEN: Distended, soft, nontender. NEUROLOGIC: She was awake, alert, responding appropriately. All cranial nerves intact. She moves extremities without difficulty. She ambulates with a walker. Her intake over the last 24 hours was 1560, output was 1300. LABORATORY DATA: Her lab work this morning showed a serum sodium 135, potassium 3.7, chloride 96, bicarbonate 34, anion gap of 3, BUN 17, creatinine 0.8, estimated GFR was 72 mL per minute. Her glucose was 100, calcium was 8.5, magnesium was 2.2. She has 3 sets of cardiac enzymes that ruled out myocardial infarction. Her triglycerides were 115, total cholesterol was 206, LDL cholesterol was 146, VLDL was 23, and HDL cholesterol 37, the ratio was 5. Her white cell count was 7000, hemoglobin 14.5, hematocrit 43, MCV 92, and platelet count of 253,000. Prothrombin time was 9.9, INR of 1. Toxic screen was positive for opiates and negative for all other medication. DISCHARGE MEDICATIONS: The patient was discharged to continue on her Tylenol 1000 mg every 8 hours, alprazolam 1 mg every 6 hours, aspirin 81 mg once a day. We will discontinue Wellbutrin as recommended by Dr. Soares. She was discharged also on calcium polycarbophil for FiberCon 625 mg once a day, 2000 mg twice a day, clonazepam 2 mg at bedtime, clonazepam 1 mg daily, diclofenac sodium for Voltaren gel 1 g topically 4 times a day, diphenhydramine 50 mg 1-2 tablets at bedtime, duloxetine for Cymbalta 30 mg once a day, furosemide 20 mg twice a day, ibuprofen 800 mg every 6 hours, lidocaine for Lidoderm patch topically daily, loratadine 10 mg once a day, metoprolol tartrate 25 mg twice a day, morphine sulfate 100 mg twice a day. She should be discharged also on oxycodone/APAP 10/325 one tablet twice a day, potassium chloride 20 mEq twice a day, promethazine 12.5 mg 2 tablets every 4-6 hours, ranitidine 75 mg at bedtime, and tizanidine/Zanaflex 4 mg twice a day. FINAL DISCHARGE DIAGNOSES: 1. Chest pain, myocardial infarction ruled out. 2. Hallucination, resolved. 3. Hypertension, well controlled. 4. Hyperlipidemia. PLAN: To discontinue her Wellbutrin as recommended by Dr. Soares. She should follow with her primary care physician and also [facility]. DEBBIE IGLESIAS MD DR: BREANNE/thiago JOB#: [id number] / [id number]
--- NOTE | 2018-12-29 21:47 | PN ---
DATE: 12/28/2018 PSYCHIATRIC PROGRESS NOTE This late entry 12/28/2018 covers elements not covered in my initial note. SUBJECTIVE: I met with the patient in the evening. Discussed with nursing staff. Overall, she has done much better during the day with resolution of her hallucinations. She has also not been tired. Given her significant psychotic symptoms, the fact that she lives alone at home; drives on her own at suggested inpatient psychiatric stabilization, but the patient is not agreeable to this. She is not a danger to herself or others. No suicidal or homicidal ideation. She agrees not to drive until she is evaluated at the [facility]. REVIEW OF SYSTEMS: Ambulation impaired. No CV, , pulmonary, eye system symptoms on review. MENTAL STATUS EXAM: Oriented reasonably. Speech has some latency, coherent. Abstraction fair, computation impaired, language function intact. Mood and affect showing improvement. LABORATORY DATA: Reviewed. IMPRESSION: Unchanged from initial note. PLAN: No change from initial note. ESME MORRISON MD DR: WILL/thiago JOB#: [id number] / [id number]
== END 2018-12-29 16:44 | disposition home or self-care (01) | DRG 313 ==
LOC: ER 12:54 → 1 SOUTH 13:58 → ER 17:13
PROVIDERS: ADMIT Internal Medicine; ATTEND Internal Medicine
DX: R07.89 Other chest pain (principal); F31.60 Bipolar disorder, current episode mixed, unspecified; R44.3 Hallucinations, unspecified; F41.9 Anxiety disorder, unspecified; F63.9 Impulse disorder, unspecified; E78.00 Pure hypercholesterolemia, unspecified; E78.5 Hyperlipidemia, unspecified; G89.4 Chronic pain syndrome; I10 Essential (primary) hypertension; J45.909 Unspecified asthma, uncomplicated; K21.9 Gastro-esophageal reflux disease without esophagitis; Z81.8 Family history of other mental and behavioral disorders; Z82.5 Family history of asthma and other chronic lower respiratory diseases; Z87.441 Personal history of nephrotic syndrome; Z87.442 Personal history of urinary calculi; Z87.891 Personal history of nicotine dependence; Z93.3 Colostomy status; Z90.49 Acquired absence of other specified parts of digestive tract; Z88.8 Allergy status to other drugs, medicaments and biological substances; F09 Unspecified mental disorder due to known physiological condition; Z60.2 Problems related to living alone
CPT/HCPCS: 36415; 70450; 71045; 80048; 80053; 80061; 80307; 80329; 81001; 82550; 83690; 83735; 83880; 84484; 85025; 85610; 85730; 93005; 93306; G0480; 82003; 97110; 97116; 97530; 99285-25

== ENCOUNTER → 2019-05-17 | Outpatient (CLI) | payer MEDICARE ==
[~2019-05-17] MED LIST changes: +ACET325T9 PO; +DULO30CA2 PO; +LORA10TA68 PO; +MORP60TA PO; -PROM12.56 PO; +PROM12.58 PO; +RANI-348 PO; +RANI-376 PO; -RANI150T21 PO
[2019-05-17 13:24] LABS: ALBUMIN 3.3 g/dL (3.4-5.0); ALBUMIN/GLOBULIN RATIO 0.9 (1.0-1.7); CALCIUM 8.6 mg/dL (8.5-10.1); CREATININE 0.9 mg/dL (0.6-1.0); POTASSIUM 3.5 mmol/L (3.5-5.1); TOTAL BILIRUBIN 0.4 mg/dL (0.2-1.0)
[2019-05-17 23:06] LABS: HEMOGLOBIN A1C 5.3 % (4.8-5.6)
== END | disposition home or self-care (01) ==
LOC: LAB 12:03
PROVIDERS: ATTEND Internal Medicine
DX: Z11.59 Encounter for screening for other viral diseases (principal); E78.1 Pure hyperglyceridemia; R73.9 Hyperglycemia, unspecified; R32 Unspecified urinary incontinence
CPT/HCPCS: 36415; 80053; 80061; 83036; 86803; 87340

== ENCOUNTER 2019-05-31 11:03 | Emergency (ER) | payer MEDICARE ==
[~2019-05-31] VITALS: Ht 162.6 cm; Wt 94.4 kg
[~2019-05-31 11:03] MED LIST changes: -MORP100T PO; -MORP60TA PO; +MORP60TA60 PO; +[UNRECOGNIZED DRUG - CODE] PO
[2019-05-31 11:40] VITALS: BP 107/60
--- NOTE | 2019-05-31 11:57 | PHYS DOC ---
Past History Past Medical History: Anxiety, Depression, GERD, High Cholesterol, Hypertension, Other Past Surgical History: Appendectomy, Cholecystectomy, Other Alcohol Use: None Drug Use: None Adult General Chief Complaint Chief Complaint: WEAKNESS/GENERALIZED HPI HPI 64-year-old female presents with insect bite, increased fatigue, and headache. The patient was advised that a few days ago. The area after did do a 4 cm diameter erythematous area on her left breast. She was prescribed Keflex. She has had 3 total doses. She states that it has not gotten any larger in size since starting the antibiotic. She denies fever or chills. She presents today because she feels like she is more tired and has a global headache today. She just wants to make sure is nothing else wrong with her. She denies chest pain or shortness of breath. Review of Systems Review of Systems Constitutional: Denies fever or chills [] Eyes: Denies change in visual acuity, redness, or eye pain [] HENT: Denies nasal congestion or sore throat [] Respiratory: Denies cough or shortness of breath [] Cardiovascular: No additional information not addressed in HPI [] GI: Denies abdominal pain, nausea, vomiting, bloody stools or diarrhea [] : Denies dysuria or hematuria [] Musculoskeletal: Denies back pain or joint pain [] Integument: Left breast rash [] Neurologic: Headache. Denies focal weakness or sensory changes [] Endocrine: Denies polyuria or polydipsia [] All other systems were reviewed and found to be within normal limits, except as documented in this note. Allergies Allergies Allergies Coded Allergies Type Severity Reaction Last Updated Verified aspartame Allergy Severe Anaphylaxis 07/31/18 Yes saccharin Allergy Severe Anaphylaxis 07/31/18 Yes sucralose Allergy Severe Anaphylaxis 07/31/18 Yes Horse/Equine Containing Products Allergy Intermediate 07/31/18 Yes methadone Allergy Intermediate 07/31/18 Yes ondansetron Allergy Intermediate 07/31/18 Yes Physical Exam Physical Exam Constitutional: Well developed, well nourished, no acute distress, non-toxic appearance. [] HENT: Normocephalic, atraumatic, bilateral external ears normal, oropharynx moist, no oral exudates, nose normal. [] Eyes: PERRLA, EOMI, conjunctiva normal, no discharge. [] Neck: Normal range of motion, no tenderness, supple, no stridor. [] Cardiovascular:Heart rate regular rhythm, no murmur [] Lungs & Thorax: Bilateral breath sounds clear to auscultation [] Abdomen: Bowel sounds normal, soft, no tenderness, no masses, no pulsatile masses. [] Skin: 5 cm erythematous area without warmth of the left breast. The palpable mass or fluctuant area.[] Back: No tenderness, no CVA tenderness. Patient hunched forward at baseline due to previous back conditions. [] Extremities: No tenderness, no cyanosis, no clubbing, ROM intact, no edema. [] Neurologic: Alert and oriented X 3, normal motor function, normal sensory function, no focal deficits noted. [] Psychologic: Affect normal, judgement normal, mood normal. [] Current Patient Data Vital Signs Vital Signs Date Time Temp Pulse Resp B/P (MAP) Pulse Ox O2 Delivery O2 Flow Rate FiO2 05/31/19 11:40 98.4 76 18 92 Room Air EKG EKG Sinus rhythm, rate 74, normal axis, no ST elevations or depressions.[] Radiology/Procedures Radiology/Procedures [] Impressions: EXAM: CHEST 1 VIEW History: Fatigue COMPARISON: 12/26/2018 TECHNIQUE: Single portable radiograph of the chest FINDINGS: Low lung volumes and technique accentuates heart size and pulmonary vascular. The lungs are clear bilaterally. The costophrenic sulci are clear and well demarcated. IMPRESSION: No radiographic evidence of an acute cardiopulmonary process. Electronically signed by: Willian Bone MD (05/31/2019 12:12 PM) [facility] DICTATED AND SIGNED BY: WILLIAN BONE MD DATE: 05/31/19 1212 CC: TANYA HA DO; ZEINAB NARAYANAN MD ~ Course & Med Decision Making Course & Med Decision Making Pertinent Labs and Imaging studies reviewed. (See chart for details) Patient's chest x-rays negative for acute findings. Her EKG is unremarkable. Her urinalysis is negative for infection. I believe the patient's cellulitis is being treated by her current medication. I don't see any concerning signs to warrant admission. The patient is stable for discharge at this time. [] Dragon Disclaimer Dragon Disclaimer This electronic medical record was generated, in whole or in part, using a voice recognition dictation system. Departure Departure: Impression: Primary Impression: Cellulitis of female breast Disposition: 01 HOME, SELF-CARE Condition: STABLE Referrals: ZEINAB NARAYANAN MD (PCP) Patient Instructions: Cellulitis, [id number] TANYA HA DO May 31, 2019 11:57
[2019-05-31] MEDS ORDERED: diphenhydrAMINE 50 MG/ML VIAL IVP ONE (12:00)
[2019-05-31] MEDS ORDERED: IV NORMAL SALINE 1,000ML 1,000 ML IV ONE (12:00)
[2019-05-31] MEDS ORDERED: METOCLOPRAMIDE HCL 10 MG/2 ML VIAL. IV ONE (12:00)
[2019-05-31] MEDS ORDERED: KETOROLAC 30 MG/ML VIAL. IV ONE (12:00)
--- NOTE | 2019-05-31 12:15 | RAD ---
EXAM: CHEST 1 VIEW History: Fatigue COMPARISON: 12/26/2018 TECHNIQUE: Single portable radiograph of the chest FINDINGS: Low lung volumes and technique accentuates heart size and pulmonary vascular. The lungs are clear bilaterally. The costophrenic sulci are clear and well demarcated. IMPRESSION: No radiographic evidence of an acute cardiopulmonary process. Electronically signed by: Willian Bone MD (05/31/2019 12:12 PM) [place] [id number]
[2019-05-31 12:17] LABS: BASO % 0 % (0-3); EOS # 0.1 x10^3/uL (0.0-0.7); EOS % 1 % (0-3); HEMATOCRIT 41.7 % (36.0-47.0); HEMOGLOBIN 14.2 g/dL (12.0-15.5); LYMPH # 1.2 x10^3/uL (1.0-4.8); LYMPH % 18 % (24-48); MEAN CORPUSCULAR HEMOGLOBIN 32 pg (25-35); MEAN CORPUSCULAR HGB CONC 34 g/dL (31-37); MEAN CORPUSCULAR VOLUME 93 fL (79-100); MONO # 0.5 x10^3/uL (0.0-1.1); MONO % 7 % (0-9); NEUT # 4.6 x10^3uL (1.8-7.7); NEUT % 73 % (31-73); PLATELET COUNT 194 x10^3/uL (140-400); RED BLOOD COUNT 4.48 x10^6/uL (3.50-5.40); WHITE BLOOD COUNT 6.3 x10^3/uL (4.0-11.0)
[2019-05-31 12:29] LABS: ALBUMIN 3.4 g/dL (3.4-5.0); ALBUMIN/GLOBULIN RATIO 0.9 (1.0-1.7); CALCIUM 8.7 mg/dL (8.5-10.1); CREATININE 0.9 mg/dL (0.6-1.0); TOTAL BILIRUBIN 0.6 mg/dL (0.2-1.0); TOTAL PROTEIN 7.3 g/dL (6.4-8.2)
[2019-05-31 13:03] LABS: BILIRUBIN,URINE NEG (NEG); CLARITY,URINE CLEAR; COLOR,URINE YELLOW; GLUCOSE,URINE NEG (NEG); NITRITE,URINE NEG (NEG); UROBILINOGEN,URINE 0.2 mg/dL (0.2 mg/dL)
[2019-05-31 13:04] LABS: BACTERIA,URINE FEW /HPF (0-FEW); HYALINE CASTS, URINE OCC /HPF; SQUAMOUS EPITHELIAL CELL,UR FEW /LPF
--- NOTE | 2019-06-02 17:45 | EKG ---
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
== END 2019-05-31 13:31 | disposition home or self-care (01) ==
LOC: ER 11:03
DX: N61.0 Mastitis without abscess (principal); K21.9 Gastro-esophageal reflux disease without esophagitis; E78.00 Pure hypercholesterolemia, unspecified; I10 Essential (primary) hypertension; Z88.8 Allergy status to other drugs, medicaments and biological substances
CPT/HCPCS: 36415; 71045; 80053; 81001; 82947; 84484; 85025; 93005; 96374; 96375; 99285; J1200; J1885; J2765; J7030

== ENCOUNTER 2019-09-20 13:30 | Emergency (ER) | payer MEDICARE ==
[~2019-09-20] VITALS: Ht 162.6 cm; Wt 86.2 kg
[~2019-09-20 13:30] MED LIST changes: -RANI-348 PO; +RANI-369 PO
[2019-09-20 14:45] LABS: BASO % 1 % (0-3); EOS # 0.2 x10^3/uL (0.0-0.7); EOS % 2 % (0-3); HEMATOCRIT 39.5 % (36.0-47.0); HEMOGLOBIN 13.6 g/dL (12.0-15.5); LYMPH # 2.5 x10^3/uL (1.0-4.8); LYMPH % 28 % (24-48); MEAN CORPUSCULAR HEMOGLOBIN 31 pg (25-35); MEAN CORPUSCULAR HGB CONC 34 g/dL (31-37); MEAN CORPUSCULAR VOLUME 91 fL (79-100); MONO # 0.6 x10^3/uL (0.0-1.1); MONO % 7 % (0-9); NEUT # 5.5 x10^3uL (1.8-7.7); NEUT % 62 % (31-73); PLATELET COUNT 199 x10^3/uL (140-400); RED BLOOD COUNT 4.36 x10^6/uL (3.50-5.40); RED CELL DISTRIBUTION WIDTH 13.1 % (11.5-14.5); WHITE BLOOD COUNT 8.9 x10^3/uL (4.0-11.0)
[2019-09-20 14:50] LABS: CALCIUM 8.7 mg/dL (8.5-10.1); CREATININE 0.8 mg/dL (0.6-1.0); GFR 72.2; POTASSIUM 3.2 mmol/L (3.5-5.1)
[2019-09-20 14:56] LABS: ALBUMIN 3.3 g/dL (3.4-5.0); MAGNESIUM 1.9 mg/dL (1.8-2.4); TOTAL BILIRUBIN 0.3 mg/dL (0.2-1.0); TOTAL PROTEIN 6.5 g/dL (6.4-8.2)
[2019-09-20] MEDS: POTASSIUM CHLORIDE 20 MEQ TABLET.ER. PO ONE (15:20)
[2019-09-20 15:48] LABS: BACTERIA,URINE 0 /HPF (0-FEW); BILIRUBIN,URINE NEG (NEG); CLARITY,URINE HAZY; COLOR,URINE YELLOW; GLUCOSE,URINE NEG (NEG); NITRITE,URINE NEG (NEG); RBC,URINE RARE /HPF (0-2); SQUAMOUS EPITHELIAL CELL,UR FEW /LPF; UROBILINOGEN,URINE 0.2 mg/dL (0.2 mg/dL); WBC,URINE OCC /HPF (0-4)
[2019-09-20 15:49] LABS: HYALINE CASTS, URINE MANY /HPF
[2019-09-20] MEDS ORDERED: POTA20TA4 PO (16:00)
--- NOTE | 2019-09-20 16:00 | PHYS DOC ---
Past History Past Medical History: Anxiety, Depression, Fibromyalgia, GERD, High Cholesterol, Hypertension, Other Additional Past Medical Histor: back pain Past Surgical History: Appendectomy, Cholecystectomy, Other Additional Past Surgical Histo: colostomy; abd surgeries x7 Smoking: Non-smoker, Quit Greater Than 1 Year Alcohol Use: None Drug Use: None Adult General Chief Complaint Chief Complaint: PAIN CONTROL HPI HPI Patient is a 44-year-old female presents after several hours of feeling generalized muscle cramping. This was waxing and waning. Increased pain with movement. No recent travel. No increased activity. No difficulty breathing. Richi fuentes notes that she's had some looser than normal stool in her ostomy bag. No blood in the ostomy. No fever. No nausea or vomiting. No recent changes in medicines. She had surgery 7 on her abdomen after complications of ischemic pancreatitis and colon Perforation. She reports the symptoms have significantly improved since being picked up by EMS. Symptoms are currently mild.[] Review of Systems Review of Systems Constitutional: Denies fever or chills [] Eyes: Denies change in visual acuity, redness, or eye pain [] HENT: Denies nasal congestion or sore throat [] Respiratory: Denies cough or shortness of breath [] Cardiovascular: No chest pain or palpitations[] GI: Denies abdominal pain, nausea, vomiting, bloody stools or diarrhea [] : Denies dysuria or hematuria [] Musculoskeletal: See history of present illness[] Integument: Denies rash or skin lesions [] Neurologic: Denies headache, focal weakness or sensory changes [] Endocrine: Denies polyuria or polydipsia [] All other systems were reviewed and found to be within normal limits, except as documented in this note. Current Medications Current Medications Current Medications Medications (Trade) Dose Ordered Sig/Emily Start Time Stop Time Status Last Admin Dose Admin Potassium Chloride (Klor-Con) 40 meq 1X ONCE 09/20/19 15:15 09/20/19 15:16 DC 09/20/19 15:20 40 MEQ Allergies Allergies Allergies Coded Allergies Type Severity Reaction Last Updated Verified aspartame Allergy Severe Anaphylaxis 09/20/19 Yes saccharin Allergy Severe Anaphylaxis 09/20/19 Yes sucralose Allergy Severe Anaphylaxis 09/20/19 Yes Horse/Equine Containing Products Allergy Intermediate 09/20/19 Yes methadone Allergy Intermediate 09/20/19 Yes ondansetron Allergy Intermediate 09/20/19 Yes Physical Exam Physical Exam Constitutional: Well developed, well nourished, no acute distress, non-toxic appearance. [] HENT: Normocephalic, atraumatic, bilateral external ears normal, oropharynx moist, no oral exudates, nose normal. [] Eyes: PERRLA, EOMI, conjunctiva normal, no discharge. [] Neck: Normal range of motion, no tenderness, supple, no stridor. [] Cardiovascular:Heart rate regular rhythm, no murmur [] Lungs & Thorax: Bilateral breath sounds clear to auscultation [] Abdomen: Bowel sounds normal, soft, no tenderness, no masses, no pulsatile masses. [] Skin: Warm, dry, no erythema, no rash. [] Back: No tenderness, no CVA tenderness. [] Extremities: No tenderness, no cyanosis, no clubbing, ROM intact, no edema. [] Neurologic: Alert and oriented X 3, normal motor function, normal sensory function, no focal deficits noted. [] Psychologic: Affect normal, judgement normal, mood normal. [] Current Patient Data Vital Signs Vital Signs Date Time Temp Pulse Resp B/P (MAP) Pulse Ox O2 Delivery O2 Flow Rate FiO2 09/20/19 15:23 68 20 104/61 (75) 97 Room Air 09/20/19 13:42 98.7 Lab Results Laboratory Tests Test 09/20/19 14:17 09/20/19 15:00 White Blood Count 8.9 x10^3/uL (4.0-11.0) Red Blood Count 4.36 x10^6/uL (3.50-5.40) Hemoglobin 13.6 g/dL (12.0-15.5) Hematocrit 39.5 % (36.0-47.0) Mean Corpuscular Volume 91 fL (79-100) Mean Corpuscular Hemoglobin 31 pg (25-35) Mean Corpuscular Hemoglobin Concent 34 g/dL (31-37) Red Cell Distribution Width 13.1 % (11.5-14.5) Platelet Count 199 x10^3/uL (140-400) Neutrophils (%) (Auto) 62 % (31-73) Lymphocytes (%) (Auto) 28 % (24-48) Monocytes (%) (Auto) 7 % (0-9) Eosinophils (%) (Auto) 2 % (0-3) Basophils (%) (Auto) 1 % (0-3) Neutrophils # (Auto) 5.5 x10^3uL (1.8-7.7) Lymphocytes # (Auto) 2.5 x10^3/uL (1.0-4.8) Monocytes # (Auto) 0.6 x10^3/uL (0.0-1.1) Eosinophils # (Auto) 0.2 x10^3/uL (0.0-0.7) Basophils # (Auto) 0.0 x10^3/uL (0.0-0.2) Sodium Level 142 mmol/L (136-145) Potassium Level 3.2 mmol/L (3.5-5.1) L Chloride Level 104 mmol/L (98-107) Carbon Dioxide Level 32 mmol/L (21-32) Anion Gap 6 (6-14) Blood Urea Nitrogen 16 mg/dL (7-20) Creatinine 0.8 mg/dL (0.6-1.0) Estimated GFR (Cockcroft-Gault) 72.2 BUN/Creatinine Ratio 20 (6-20) Glucose Level 100 mg/dL (70-99) H Calcium Level 8.7 mg/dL (8.5-10.1) Magnesium Level 1.9 mg/dL (1.8-2.4) Total Bilirubin 0.3 mg/dL (0.2-1.0) Aspartate Amino Transferase (AST) 19 U/L (15-37) Alanine Aminotransferase (ALT) 22 U/L (14-59) Alkaline Phosphatase 76 U/L (46-116) Creatine Kinase 67 U/L (26-192) Total Protein 6.5 g/dL (6.4-8.2) Albumin 3.3 g/dL (3.4-5.0) L Albumin/Globulin Ratio 1.0 (1.0-1.7) Lipase 75 U/L (73-393) Urine Collection Type U cath Urine Color Yellow Urine Clarity Hazy Urine pH 5.5 Urine Specific [place] >=1.030 Urine Protein Trace (NEG-TRACE) Urine Glucose (UA) Neg mg/dL (NEG) Urine Ketones (Stick) Neg mg/dL (NEG) Urine Blood Neg (NEG) Urine Nitrite Neg (NEG) Urine Bilirubin Neg (NEG) Urine Urobilinogen Dipstick 0.2 mg/dL (0.2 mg/dL) Urine Leukocyte Esterase Neg (NEG) Urine RBC Rare /HPF (0-2) Urine WBC Occ /HPF (0-4) Urine Squamous Epithelial Cells Few /LPF Urine Bacteria 0 /HPF (0-FEW) Urine Hyaline Casts Many /HPF Urine Mucus Marked /LPF EKG EKG [] Radiology/Procedures Radiology/Procedures [] Course & Med Decision Making Course & Med Decision Making Pertinent Labs and Imaging studies reviewed. (See chart for details) Emergency department course: Patient arrived, was placed in bed, and tolerated exam well. She had laboratory testing obtained. After the return of the initial laboratory testing showing hypokalemia, she was given potassium supplementation. She was oral intake tolerant. Findings and plan were discussed with the patient who voiced understanding. She was discharged in improved condition. Medical decision making: Patient with hypokalemia, possibly is result of the looser than normal stool in her ostomy. Possibly a little bit of dehydration given that the specific gravity of her urine is greater than 1.030. She is oral intake tolerant. We'll have her increase oral fluid intake. There is no evidence of significant other electrolyte abnormality. No evidence of surgical pathology at this time. No evidence of intractable pain.[] Dragon Disclaimer Dragon Disclaimer This electronic medical record was generated, in whole or in part, using a voice recognition dictation system. Departure Departure: Impression: Primary Impression: Muscle spasm Additional Impression: Hypokalemia Disposition: 01 HOME, SELF-CARE Condition: IMPROVED Referrals: ZEINAB NARAYANAN MD (PCP) Follow-up in 2 days Patient Instructions: Hypokalemia, Muscle Cramps Additional Instructions: Drink plenty of fluids, frequent small sips. No fatty foods, no milk, and no pepper for the next 48 hours. For the next 48 hours eat a diet rich in carbohydrates with foods such as bananas, rice, applesauce, and toast. Follow-up with your regular doctor in 2 days. Return to the ER if worsening pain or any other concerns. Scripts Potassium Chloride (POTASSIUM CHLORIDE ) 20 Meq Tablet.er 40 MEQ PO DAILY for SUPPLEMENT for 5 Days, #10 TAB Prov: KIT LAFLEUR DO 09/20/19 Problem Qualifiers KIT LAFLEUR 19, 2019 16:00
[2019-09-20 16:25] VITALS: BP 121/68
== END 2019-09-20 16:25 | disposition home or self-care (01) ==
LOC: ER 13:36
DX: R25.2 Cramp and spasm (principal); E87.6 Hypokalemia; F41.9 Anxiety disorder, unspecified; F32.9 Major depressive disorder, single episode, unspecified; M79.7 Fibromyalgia; K21.9 Gastro-esophageal reflux disease without esophagitis; E78.00 Pure hypercholesterolemia, unspecified; I10 Essential (primary) hypertension; Z87.891 Personal history of nicotine dependence; Z88.8 Allergy status to other drugs, medicaments and biological substances
CPT/HCPCS: 36415; 80053; 81001; 82550; 83690; 83735; 85025; 99284; P9612

== ENCOUNTER 2019-12-31 17:46 | Emergency (ER) | payer MEDICARE ==
[~2019-12-31] VITALS: Ht 162.6 cm; Wt 88.0 kg
[~2019-12-31 17:46] MED LIST changes: +POTA20TA4 PO
--- NOTE | 2019-12-31 17:52 | PHYS DOC ---
Past History Past Medical History: Anxiety, Depression, Fibromyalgia, GERD, High Cholesterol, Hypertension, Pancreatitis, Other Additional Past Medical Histor: back pain Past Surgical History: Appendectomy, Cholecystectomy, Other Additional Past Surgical Histo: colostomy; abd surgeries x7 Smoking: Non-smoker, Quit Greater Than 1 Year Alcohol Use: None Drug Use: None Adult General Chief Complaint Chief Complaint: ".. I ve got some redness at my colostomy site... And got some generalized abdomen pain.. " HPI HPI Patient is a 64 year old female who presents with above hx and complaints of abdomen pain. She does have some redness at her clinical stability site. Has noticed some hard stool at site that had a few specks of blood on it. Patient has had previous history of C. difficile. 2. Patient has colonoscopy in 2004 secondary to pancreatitis that caused perforation in her transverse colon. Camelia nt does have take down of skin where she has allergy to the adhesive of the colostomy bag. Patient denies any trauma. Patient denies any travel outside of the Surgery Area. Patient Denies Any Immunosuppression. Patient Denies Any Bad Foods. Patient Denies Any Specific Ill Contacts. Pt. follows with Dr. Narayanan as primary. Review of Systems Review of Systems Constitutional: Denies fever or chills [] Eyes: Denies change in visual acuity, redness, or eye pain [] HENT: Denies nasal congestion or sore throat [] Respiratory: Denies cough or shortness of breath [] Cardiovascular: No additional information not addressed in HPI [] GI: Patient complains of generalized abdominal pain, nausea. Patient denies, vomiting, bloody stools or diarrhea [] : Denies dysuria or hematuria [] Musculoskeletal: Denies back pain or joint pain [] Integument: Denies rash or skin lesions [] Neurologic: Denies headache, focal weakness or sensory changes [] Endocrine: Denies polyuria or polydipsia [] All other systems were reviewed and found to be within normal limits, except as documented in this note. Family History Family History Noncontributory to presentation Current Medications Current Medications See nursing for home meds Allergies Allergies Allergies Coded Allergies Type Severity Reaction Last Updated Verified aspartame Allergy Severe Anaphylaxis 09/20/19 Yes saccharin Allergy Severe Anaphylaxis 09/20/19 Yes sucralose Allergy Severe Anaphylaxis 09/20/19 Yes Horse/Equine Containing Products Allergy Intermediate 09/20/19 Yes methadone Allergy Intermediate 09/20/19 Yes ondansetron Allergy Intermediate 09/20/19 Yes Physical Exam Physical Exam Constitutional: Mild to moderate acute distress, non-toxic appearance. [] HENT: Normocephalic, atraumatic, bilateral external ears normal, oropharynx moist, no oral exudates, nose normal. [] Eyes: PERRLA, EOMI, conjunctiva normal, no discharge. Glasses Neck: Normal range of motion, no tenderness, supple, no stridor. [] Cardiovascular:Heart rate regular rhythm, no murmur [] Lungs & Thorax: Bilateral breath sounds equal apexes few scattered wheezes on auscultation [] Abdomen: Bowel sounds normal, soft, mild generalized tenderness, no masses, no pulsatile masses. [] No focal areas of pain on rebound. Patient is very distended. Ostomy site shows some skin breakdown. There is hard stool in the colostomy bag. Obese. Old surgery scars. Skin: Warm, dry, except findings of skin breakdown from adhesive from colostomy bag Back: No tenderness, no CVA tenderness. [] Extremities: No tenderness, no cyanosis, no clubbing, ROM intact, trace ankle edema. [] Neurologic: Alert and oriented X 3, normal motor function, normal sensory function, no focal deficits noted. [] Psychologic: Affect anxious, judgement normal, mood normal. [] EKG EKG [] Radiology/Procedures Radiology/Procedures [address] [address] IMAGING REPORT Signed PATIENT: ALMA KNIGHT ACCOUNT: [id number] : 1955 LOCATION: ER AGE: 64 SEX: F EXAM STATUS: REG ER ORD. PHYSICIAN: JAKOB GILL MD REASON: pain PROCEDURE: ACUTE ABDOMEN SERIES Acute abdominal series to include a PA chest radiograph 12/31/2019 Clinical History: Abdominal pain. A PA digital radiograph of the chest was obtained. Two AP supine and an erect AP digital radiographs of the abdomen/pelvis were obtained. Comparison study is dated 05/31/2019. The cardiac silhouette is mildly enlarged. The thoracic aorta is tortuous. Atherosclerotic calcification thoracic aorta is seen. No acute pulmonary infiltrate is seen. No pleural effusion or pneumothorax is noted. Surgical clips are seen within the right upper quadrant of the abdomen consistent with a cholecystectomy. The abdominal bowel gas pattern is nonobstructive. A moderate amount of stool is seen throughout the colon. There is no evidence of free air. No radiopaque calculus is seen. Degenerative changes are seen involving the thoracic throughout the lumbar spine. IMPRESSION: Nonobstructive bowel gas pattern. Electronically signed by: Alexis Marquez MD (12/31/2019 7:16 PM) [id number] DICTATED AND SIGNED BY: ALEXIS MARQUEZ MD DATE: 12/31/191915 CC: JAKOB GILL MD; ZEINAB NARAYANAN MD ~ Course & Med Decision Making Course & Med Decision Making Pertinent Labs and Imaging studies reviewed. (See chart for details) Start a clear fluid diet for the next 2 days. No solid. No milk products. Take meds as previous directed. Follow-up with Dr. Narayanan. Return if any concerns. Review ED workup with primary care. [facility] in place. No travel. Avoid crowds. Social distance. Follow-up CT see guidelines for up to date information on Covid 19 Impression- 1. Abdomen pain 2. Constipation 3. Chronic pain [] Dragon Disclaimer Dragon Disclaimer This electronic medical record was generated, in whole or in part, using a voice recognition dictation system. Departure Departure: Disposition: 01 HOME/RESIDENCE PRIOR TO ADM Condition: STABLE Referrals: ZEINAB NARAYANAN MD (PCP) Dragon Disclaimer This chart was dictated in whole or in part using Voice Recognition software in a busy, high-work load, and often noisy Emergency Department environment. It may contain unintended and wholly unrecognized errors or omissions. Dragon Disclaimer This chart was dictated in whole or in part using Voice Recognition software in a busy, high-work load, and often noisy Emergency Department environment. It may contain unintended and wholly unrecognized errors or omissions. JAKOB GILL MD Dec 31, 2019 17:52
[2019-12-31 17:53] VITALS: BP 158/65
[2019-12-31] MEDS ORDERED: IV RINGERS SOLUTION,LACTATED 1,000 ML IV SCH (18:16)
[2019-12-31] MEDS ORDERED: FAMOTIDINE 20 MG/2 ML VIAL IVP ONE (18:30)
[2019-12-31] MEDS ORDERED: ONDANSETRON PF 4 MG/2 ML VIAL. IVP ONE (18:30)
--- NOTE | 2019-12-31 19:19 | RAD ---
Acute abdominal series to include a PA chest radiograph 12/31/2019 Clinical History: Abdominal pain. A PA digital radiograph of the chest was obtained. Two AP supine and an erect AP digital radiographs of the abdomen/pelvis were obtained. Comparison study is dated 05/31/2019. The cardiac silhouette is mildly enlarged. The thoracic aorta is tortuous. Atherosclerotic calcification thoracic aorta is seen. No acute pulmonary infiltrate is seen. No pleural effusion or pneumothorax is noted. Surgical clips are seen within the right upper quadrant of the abdomen consistent with a cholecystectomy. The abdominal bowel gas pattern is nonobstructive. A moderate amount of stool is seen throughout the colon. There is no evidence of free air. No radiopaque calculus is seen. Degenerative changes are seen involving the thoracic throughout the lumbar spine. IMPRESSION: Nonobstructive bowel gas pattern. Electronically signed by: Alexis Marquez MD (12/31/2019 7:16 PM) [id number]
[2019-12-31] MEDS ORDERED: MORPHINE IR 15 MG TABLET ONE (19:22)
[2019-12-31] MEDS ORDERED: MORPHINE 100 MG PO ONE (19:30)
[2019-12-31 19:42] LABS: BASO % 1 % (0-3); EOS # 0.1 x10^3/uL (0.0-0.7); EOS % 2 % (0-3); HEMATOCRIT 40.9 % (36.0-47.0); HEMOGLOBIN 13.9 g/dL (12.0-15.5); LYMPH # 1.4 x10^3/uL (1.0-4.8); LYMPH % 24 % (24-48); MEAN CORPUSCULAR HEMOGLOBIN 32 pg (25-35); MEAN CORPUSCULAR HGB CONC 34 g/dL (31-37); MEAN CORPUSCULAR VOLUME 94 fL (79-100); MONO # 0.4 x10^3/uL (0.0-1.1); MONO % 7 % (0-9); NEUT % 67 % (31-73); PLATELET COUNT 239 x10^3/uL (140-400); RED BLOOD COUNT 4.33 x10^6/uL (3.50-5.40); RED CELL DISTRIBUTION WIDTH 12.9 % (11.5-14.5); WHITE BLOOD COUNT 5.9 x10^3/uL (4.0-11.0)
[2019-12-31 19:45] LABS: CALCIUM 8.7 mg/dL (8.5-10.1); CREATININE 0.6 mg/dL (0.6-1.0); GFR 100.6; POTASSIUM 3.5 mmol/L (3.5-5.1)
[2019-12-31 19:50] LABS: BARBITURATES NEG (NEG); BENZODIAZEPINES POS (NEG); CANNABINOIDS NEG (NEG); COCAINE NEG (NEG); METHADONE NEG (NEG); OPIATES POS (NEG); PHENCYCLIDINE NEG (NEG)
[2019-12-31 19:53] LABS: ALBUMIN 3.2 g/dL (3.4-5.0); DIRECT BILIRUBIN 0.1 mg/dL (0.0-0.2); TOTAL BILIRUBIN 0.2 mg/dL (0.2-1.0); TOTAL PROTEIN 6.8 g/dL (6.4-8.2)
[2019-12-31 19:53] LABS: AMPHETAMINE/METHAMPHETAMINE NEG (NEG)
[2019-12-31 19:57] LABS: BACTERIA,URINE 0 /HPF (0-FEW); BILIRUBIN,URINE NEG (NEG); CLARITY,URINE CLEAR; COLOR,URINE YELLOW; GLUCOSE,URINE NEG (NEG); NITRITE,URINE NEG (NEG); SQUAMOUS EPITHELIAL CELL,UR FEW /LPF; UROBILINOGEN,URINE 0.2 mg/dL (0.2 mg/dL)
[2019-12-31 19:58] LABS: HYALINE CASTS, URINE FEW /HPF
== END 2019-12-31 20:35 | disposition home or self-care (01) ==
LOC: ER 17:46
DX: K59.00 Constipation, unspecified (principal); G89.29 Other chronic pain; R10.84 Generalized abdominal pain; K21.9 Gastro-esophageal reflux disease without esophagitis; I10 Essential (primary) hypertension; E78.5 Hyperlipidemia, unspecified; Z90.49 Acquired absence of other specified parts of digestive tract; Z87.891 Personal history of nicotine dependence; Z88.8 Allergy status to other drugs, medicaments and biological substances
CPT/HCPCS: 36415; 74022; 80048; 80076; 80307; 81001; 82150; 83690; 85025; 85610; 85730; 87086; 87493; 96374; 99284; J3490; J7120

== ENCOUNTER 2020-02-15 19:13 | Emergency (ER) | payer MEDICARE ==
[~2020-02-15] VITALS: Ht 162.6 cm; Wt 88.0 kg
[2020-02-15 19:26] VITALS: BP 143/100
[2020-02-15] MEDS ORDERED: CEPH-264 PO (19:43)
--- NOTE | 2020-02-15 19:44 | PHYS DOC ---
Past History Past Medical History: Anxiety, Depression, Fibromyalgia, GERD, High Cholesterol, Hypertension, Pancreatitis, Other Additional Past Medical Histor: back pain Past Surgical History: Appendectomy, Cholecystectomy, Other Additional Past Surgical Histo: colostomy; abd surgeries x7 Smoking: Non-smoker, Quit Greater Than 1 Year Alcohol Use: None Drug Use: None General Adult EDM: Chief Complaint: INSECT BITE HPI: HPI: 64-year-old female presents with rash. Patient believes that she was bit by an insect 5 days ago. She has developed a worsening rash over the last few days. It was worse a couple of days ago. She came in tonight because it seems to be getting a little bit bigger again. It changed colors today. She denies fever or chills. She has had skin infections in the past. There was some drainage from the area couple days ago, but the not the last couple of days. Review of Systems: Review of Systems: Constitutional: Denies fever or chills Eyes: Denies change in visual acuity HENT: Denies nasal congestion or sore throat Respiratory: Denies cough or shortness of breath Cardiovascular: Denies chest pain or edema GI: Denies abdominal pain, nausea, vomiting, bloody stools or diarrhea : Denies dysuria Musculoskeletal: Denies back pain or joint pain Integument: Rash Neurologic: Denies headache, focal weakness or sensory changes Endocrine: Denies polyuria or polydipsia Lymphatic: Denies swollen glands Psychiatric: Denies depression or anxiety Heart Score: Risk Factors: Risk Factors: DM, Current or recent (<one month) smoker, HTN, HLP, family history of CAD, obesity. Risk Scores: Score 0 - 3: 2.5% MACE over next 6 weeks - Discharge Home Score 4 - 6: 20.3% MACE over next 6 weeks - Admit for Clinical Observation Score 7 - 10: 72.7% MACE over next 6 weeks - Early Invasive Strategies Allergies: Allergies: Allergies Coded Allergies Type Severity Reaction Last Updated Verified aspartame Allergy Severe Anaphylaxis 09/20/19 Yes saccharin Allergy Severe Anaphylaxis 09/20/19 Yes sucralose Allergy Severe Anaphylaxis 09/20/19 Yes Horse/Equine Containing Products Allergy Intermediate 09/20/19 Yes methadone Allergy Intermediate 09/20/19 Yes ondansetron Allergy Intermediate 09/20/19 Yes Physical Exam: PE: Constitutional: Well developed, well nourished, no acute distress, non-toxic appearance. [] HENT: Normocephalic, atraumatic, bilateral external ears normal, oropharynx moist, no oral exudates, nose normal. [] Eyes: PERRLA, EOMI, conjunctiva normal, no discharge. [] Neck: Normal range of motion, no tenderness, supple, no stridor. [] Cardiovascular:Heart rate regular rhythm, no murmur [] Lungs & Thorax: Bilateral breath sounds clear to auscultation [] Abdomen: Bowel sounds normal, soft, no tenderness, no masses, no pulsatile masses. [] Skin: 3 cm area of erythema with mild warmth of the right elbow consistent with cellulitis. No obvious palpable area or abscess. [] Back: No tenderness, no CVA tenderness. [] Extremities: No tenderness, no cyanosis, no clubbing, ROM intact, no edema. [] Neurologic: Alert and oriented X 3, normal motor function, normal sensory function, no focal deficits noted. [] Psychologic: Affect normal, judgement normal, mood normal. [] Current Patient Data: Vital Signs: Vital Signs Date Time Temp Pulse Resp B/P (MAP) Pulse Ox O2 Delivery O2 Flow Rate FiO2 02/15/20 19:26 98.6 104 20 143/100 (114) 97 Room Air EKG: EKG: [] Radiology/Procedures: Radiology/Procedures: [] Course & Med Decision Making: Course & Med Decision Making Pertinent Labs and Imaging studies reviewed. (See chart for details) The patient's bite does appear to be infected. The fact that it is getting larger instead of better is concerning. I will treat her with Rocephin. I will give the first dose in the emergency room. She is stable for discharge at this time. [] Dragon Disclaimer: Dragon Disclaimer: This electronic medical record was generated, in whole or in part, using a voice recognition dictation system. Departure Departure: Impression: Primary Impression: Cellulitis of right elbow Disposition: 01 HOME/RESIDENCE PRIOR TO ADM Condition: STABLE Referrals: ZEINAB NARAYANAN MD (PCP) Patient Instructions: Cellulitis, [id number] Scripts Cephalexin (KEFLEX) 500 Mg Capsule 1 CAP PO TID for cellulitis for 7 Days, #21 CAP 0 Refills Prov: TANYA HA DO 02/15/20 TANYA HA DO February 15, 2020 19:44
[2020-02-15] MEDS ORDERED: CEPHALEXIN 250 MG CAPSULE PO ONE (19:45)
== END 2020-02-15 19:50 | disposition home or self-care (01) ==
LOC: ER 19:13
DX: L03.113 Cellulitis of right upper limb (principal); M79.7 Fibromyalgia; K21.9 Gastro-esophageal reflux disease without esophagitis; E78.00 Pure hypercholesterolemia, unspecified; I10 Essential (primary) hypertension; Z87.891 Personal history of nicotine dependence; Z88.8 Allergy status to other drugs, medicaments and biological substances
CPT/HCPCS: 99284

== ENCOUNTER 2020-08-30 19:52 | Emergency (ER) | payer MEDICARE ==
[~2020-08-30] VITALS: Ht 162.6 cm; Wt 88.0 kg
[~2020-08-30 19:52] MED LIST changes: -ASPI-612 PO; +ASPI-889 PO; +CEPH-264 PO; -OXYC-411 PO; +OXYC1TAB20 PO
[2020-08-30 20:00] VITALS: BP 133/81
[2020-08-30] MEDS ORDERED: LIDO:MAALOX 1:1 20 ML SINGLE DOSE. PO ONE (21:00)
[2020-08-30 21:09] LABS: BASO % 0 % (0-3); EOS # 0.2 x10^3/uL (0.0-0.7); EOS % 3 % (0-3); HEMATOCRIT 41.5 % (36.0-47.0); HEMOGLOBIN 14.1 g/dL (12.0-15.5); LYMPH # 1.5 x10^3/uL (1.0-4.8); LYMPH % 23 % (24-48); MEAN CORPUSCULAR HEMOGLOBIN 31 pg (25-35); MEAN CORPUSCULAR HGB CONC 34 g/dL (31-37); MEAN CORPUSCULAR VOLUME 90 fL (79-100); MONO # 0.4 x10^3/uL (0.0-1.1); MONO % 6 % (0-9); NEUT # 4.4 x10^3uL (1.8-7.7); NEUT % 68 % (31-73); PLATELET COUNT 168 x10^3/uL (140-400); RED BLOOD COUNT 4.62 x10^6/uL (3.50-5.40); RED CELL DISTRIBUTION WIDTH 14.5 % (11.5-14.5); WHITE BLOOD COUNT 6.5 x10^3/uL (4.0-11.0)
--- NOTE | 2020-08-30 21:09 | PHYS DOC ---
Past History Past Medical History: Anxiety, Depression, Fibromyalgia, GERD, High Cholesterol, Hypertension, Pancreatitis, Other Additional Past Medical Histor: back pain (TIGRE SALDIVAR APRN) Past Medical History: Anxiety, Bronchitis (JAKOB ATKINSON MD) Past Surgical History: Appendectomy, Cholecystectomy, Other Additional Past Surgical Histo: colostomy; abd surgeries x7 (TIGRE SALDIVAR APRN) Smoking: Non-smoker, Quit Greater Than 1 Year Alcohol Use: None Drug Use: None (TIGRE SALDIVAR APRN) Adult General Chief Complaint Chief Complaint: SHORTNESS OF BREATH HPI HPI Patient is a 65-year-old female who presents to the emergency department with complaints of shortness of breath that she woke up with last , , which she considered mild because she was not hypoxic at home, 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 Patient states that while she was watching TV this evening she noticed that she became extremely nauseated but did not take any medications for her nausea, then at approximately 1800 she felt a sudden onset of chest pressure describing it in the sternal area without radiation, without vomiting without diaphoresis. Patient states that she did not take anything for her symptoms, patient reports her pressure at a 5/10 on a 1-10 pain scale. Patient states that nothing particularly makes it worse, nothing particularly makes it better. Patient denies any recent fever or chills, any visual changes, she does however complain of nasal congestion for greater than 3 weeks. Patient denies any cough, denies abdominal pains, diarrhea or constipation. Patient denies any problems urinating, patient denies back pains, pain in her joints, skin rashes, headaches, focal weakness, or sensory changes. Patient denies any swelling of her glands, patient denies any recent changes in depression or anxiety for which she takes medications for, patient states she is not homicidal or suicidal. (TIGRE SALDIVAR APRN) Review of Systems Review of Systems Constitutional: Denies fever or chills Eyes: Denies change in visual acuity, redness, or eye pain HENT: Denies sore throat, complains of nasal congestion and rhinitis for greater than 3 weeks. Respiratory: Denies cough, complains of shortness of breath since last Cardiovascular: Denies chest palpitations, complains of sternal chest pressure that started at approximately 1800 sudden onset while watching TV, rating a 5/10 on a 1-10 pain scale. GI: Denies abdominal pain, vomiting, bloody stools, diarrhea. Complains of nausea : Denies dysuria or hematuria Musculoskeletal: Denies back pain or joint pain Integument: Denies rash or skin lesions Neurologic: Denies headache, focal weakness or sensory changes Endocrine: Denies polyuria or polydipsia Psychiatric: Patient denies homicidal or suicidal ideations, patient denies any recent changes in depressions or anxieties that she has been treated for All other systems were reviewed and found to be within normal limits, except as documented in this note. (TIGRE SALDIVAR APRN) Family History Family History Patient states that both her mother and her father have kidney disease although she is not certain of what type, patient states that her brother has a history of [place] this past week in which he had 2 stents placed. (TIGRE SALDIVAR APRN) Current Medications Current Medications Patient reports taking clonazepam, metoprolol, 81 mg aspirin, cinnamon bark, Voltaren gel, 40 mg of Lasix as needed when her legs swell, Percocet 10 mg / 325 mg for chronic pains, Lidoderm patches, promethazine tablets, Zanaflex, Ativan, 800 mg ibuprofens, regular strength Tylenols, 60 mg morphine extended release tablets for chronic pains, sertraline, alprazolam, and Abilify. Current Medications Medications (Trade) Dose Ordered Sig/Emily Start Time Stop Time Status Last Admin Dose Admin Multi-Ingredient Mouthwash/Gargle (Gi Cocktail) 20 ml 1X ONCE 08/30/20 20:45 08/30/20 20:46 UNV (TIGRE SALDIVAR APRN) Allergies Allergies Allergies Coded Allergies Type Severity Reaction Last Updated Verified aspartame Allergy Severe Anaphylaxis 09/20/19 Yes saccharin Allergy Severe Anaphylaxis 09/20/19 Yes sucralose Allergy Severe Anaphylaxis 09/20/19 Yes Horse/Equine Containing Products Allergy Intermediate 09/20/19 Yes methadone Allergy Intermediate 09/20/19 Yes ondansetron Allergy Intermediate 09/20/19 Yes (TIGRE SALDIVAR APRN) Physical Exam Physical Exam Constitutional: Well developed, well nourished, no acute distress, non-toxic appearance. HENT: Normocephalic, atraumatic, bilateral external ears normal, oropharynx moist, no oral exudates, nose normal. Eyes: PERRLA, EOMI, conjunctiva normal, no discharge. Neck: Normal range of motion, no tenderness, supple, no stridor. Cardiovascular:Heart rate regular rhythm, no murmur, heart sounds S1-S2 auscultation. Lungs & Thorax: Bilateral breath sounds clear to auscultation all lung avina. Abdomen: Bowel sounds normal, soft, no tenderness, no masses, no pulsatile masses. Skin: Warm, dry, no erythema, no rash. Back: No tenderness, no CVA tenderness. Extremities: No tenderness, no cyanosis, no clubbing, ROM intact, no edema. Neurologic: Alert and oriented X 3, normal motor function, normal sensory function, no focal deficits noted. Psychologic: Affect normal, judgement normal, mood normal. (TIGRE SALDIVAR APRN) Current Patient Data Vital Signs Vital Signs Date Time Temp Pulse Resp B/P (MAP) Pulse Ox O2 Delivery O2 Flow Rate FiO2 08/30/20 20:00 98.3 65 16 133/81 (98) 95 Room Air (TIGRE SALDIVAR APRN) EKG EKG EKG performed at 2009 per ED nursing staff, shows normal sinus rhythm without ectopy, MI interval 0.184, QTc interval 0.421, no STEMI noted, no ischemia noted, no acute coronary syndrome noted, EKG interpreted by ED attending Dr. Atkinson. (TIGRE SALDIVAR APRN) Radiology/Procedures Radiology/Procedures [] (TIGRE SALDIVAR APRN) Radiology/Procedures [address] [address] IMAGING REPORT Signed PATIENT: ALMA KNIGHT ACCOUNT: [id number] : 1955 LOCATION: ER AGE: 65 SEX: F EXAM STATUS: REG ER ORD. PHYSICIAN: TIGRE SALDIVAR APRN REASON: CHEST PRESSURE, SHORT OF BREATH PROCEDURE: CHEST PA & LATERAL PA and lateral chest. HISTORY: Chest pressure, short of breath PA and lateral views were taken of the chest. Heart is mildly prominent. There are mild interstitial changes from vascular congestion although atypical interstitial pneumonia would be possible. There is no pleural effusion. IMPRESSION: 1. Slight interstitial changes from vascular congestion or slight interstitial infiltrates. Electronically signed by: Haile Hansen MD (08/30/2020 9:32 PM) [facility] DICTATED AND SIGNED BY: HAILE HANSEN MD DATE: 08/30/202131 CC: TIGRE SALDIVAR APRN; [facility]; ZEINAB NARAYANAN MD ~MTH0 0 (JAKOB ATKINSON MD) Heart Score HEART Score for Chest Pain: HEART Score for Chest Pain Response (Comments) Value History Slighlty/Non-Suspicious 0 ECG Normal 0 Age >45 - < 65 1 Risk Factors 1 or 2 Risk Factors 1 Troponin < Normal Limit 0 Total 2 Risk Factors: Risk Factors: DM, Current or recent (<one month) smoker, HTN, HLP, family h istory of CAD, obesity. Risk Scores: Risk Factors: DM, Current or recent (<one month) smoker, HTN, HLP, family history of CAD, obesity. (TIGRE SALDIVAR APRN) Course & Med Decision Making Course & Med Decision Making Pertinent Labs and Imaging studies reviewed. (See chart for details) 65-year-old patient arrives to emergency department today complaining of nasal congestion for the past 3 or more weeks, shortness of breath for since last , sudden onset of nausea that was followed by chest pressure that started at approximately 1800 today while she was watching television. This is what prompted her to come to emergency department today. Patient appeared nontoxic, physical examination was unremarkable, patient's vital signs were stable, and ER work-up was initiated to include a PA lateral chest x-ray, serum labs to include a cardiac work-up, could not rule out PE per PERC rule so a D- dimer was ordered as well. Physical presentation was consistent with gastric reflux, a GI cocktail was ordered as well. Labs pending, x-rays pending at this time. Patient's troponin negative, x-ray interpretation from house radiologist pending, patient states that GI cocktail did not help with her chest pressure and discomfort, patient reports remaining nauseated, patient states that she cannot take sublingual ondansetron and is requesting IV Phenergan. P.o. 25 mg Phenergan ordered for nausea. Discussed patient case with ED attending Dr. Atkinson, Dr. Atkinson will take over patient care at this time. (TIGRE SALDIVAR APRN) Course & Med Decision Making Impression: 1. Dyspnea- 2. Pneumonia 3. Viral syndrome 4. Pulmonary edema Repeat Lasix and KCL in am, take Azithromax 250- day, use MDI 2 puffs 4 times a day. Keep follow-up with Dr. Narayanan. Return if any concerns. Wear a mask covering your nose and mouth at all times. Self isolate for the next 10 days. Return if any concerns. Note computer problems and charting discharge/ system problem (JAKOB ATKINSON MD) Dragon Disclaimer Dragon Disclaimer This electronic medical record was generated, in whole or in part, using a voice recognition dictation system. (TIGRE SALDIVAR APRN) Departure Departure: Referrals: ZEINAB NARAYANAN MD (PCP) Scripts Albuterol Sulfate (ALBUTEROL SULFATE NEB SOLN ) 2.5 Mg/3 Ml Vial.neb 2.5 MG NEB [id number] for FOR ASTHMA, #120 EACH 0 Refills Prov: JAKOB ATKINSON MD 08/30/20 Azithromycin (AZITHROMYCIN TABLET) 250 Mg Tablet 250 MG PO DAILY for ANTI-BIOTIC for 5 Days, #5 TAB 0 Refills Prov: JAKOB ATKINSON MD 08/30/20 PERC Rule for PE PERC Rule for PE Response (Comments) Value Age > 50: Yes 1 HR > 100: No 0 Sa02 on room air <95%: No 0 Unilateral leg swelling: No 0 Hemoptysis: No 0 Recent surgery or trauma: No 0 Prior PE or DVT: No 0 Hormone use: No 0 Total 1 Dragon Disclaimer This chart was dictated in whole or in part using Voice Recognition software in a busy, high-work load, and often noisy Emergency Department environment. It may contain unintended and wholly unrecognized errors or omissions. (JAKOB ATKINSON MD) Attending Signature Attending Signature I have participated in the care of this patient and I have reviewed and agree with all pertinent clinical information above including history, exam, and recommendations. (JAKOB ATKINSON MD) TIGRE SALDIVAR APRN Aug 30, 2020 21:09 JAKOB ATKINSON MD Aug 30, 2020 22:06
[2020-08-30 21:21] LABS: ALBUMIN 3.3 g/dL (3.4-5.0); ALBUMIN/GLOBULIN RATIO 0.9 (1.0-1.7); CALCIUM 8.4 mg/dL (8.5-10.1); GFR 55.6; POTASSIUM 3.9 mmol/L (3.5-5.1); TOTAL BILIRUBIN 0.2 mg/dL (0.2-1.0); TOTAL PROTEIN 6.8 g/dL (6.4-8.2)
--- NOTE | 2020-08-30 21:35 | RAD ---
PA and lateral chest. HISTORY: Chest pressure, short of breath PA and lateral views were taken of the chest. Heart is mildly prominent. There are mild interstitial changes from vascular congestion although atypical interstitial pneumonia would be possible. There is no pleural effusion. IMPRESSION: 1. Slight interstitial changes from vascular congestion or slight interstitial infiltrates. Electronically signed by: Haile Hansen MD (08/30/2020 9:32 PM) [facility]
[2020-08-30] MEDS ORDERED: PROMETHAZINE 25 MG TABLET. PO ONE (21:45)
[2020-08-30] MEDS ORDERED: FUROSEMIDE 40 MG TABLET ONE (22:21)
[2020-08-30] MEDS ORDERED: ALBU2.5V5 NEB (22:23)
[2020-08-30] MEDS ORDERED: AZIT250T6 PO (22:23)
[2020-08-30] MEDS ORDERED: POTASSIUM CHLORIDE 20 MEQ TABLET.ER. PO ONE (22:30)
[2020-08-30] MEDS ORDERED: AZITHROMYCIN 250 MG TABLET. PO ONE (22:30)
[2020-08-30] MEDS ORDERED: FUROSEMIDE 40 MG TABLET PO ONE (22:30)
[2020-08-30] MEDS ORDERED: ALBUTEROL SULFATE 8GM INHALER. INH ONE (22:30)
--- NOTE | 2020-08-31 05:34 | EKG ---
[facility] ED [facility] [address] [place] [id number] Test Date: 2020-08-30 Test Time: 20:10:49 Pat Name: ALMA KNIGHT Department: Room: Gender: F [employer] K[employer] Tender: : 1955 Requested By: TIGRE SALDIVAR Order Number: [id number] Reading MD: Nick Alvarez Measurements Intervals [place] Rate: 66 P: 26 TX: 184 QRS: 2 QRSD: 70 T: 14 QT: 400 QTc: 421 Interpretive Statements SINUS RHYTHM NORMAL ECG Electronically Signed On 09-02-2020 10:51:02 [employer] TENDER by Nick Alvarez
== END 2020-08-30 22:53 | disposition home or self-care (01) ==
LOC: ER 19:52
DX: J18.9 Pneumonia, unspecified organism (principal); J81.1 Chronic pulmonary edema; B34.9 Viral infection, unspecified; F41.9 Anxiety disorder, unspecified; M79.7 Fibromyalgia; K21.9 Gastro-esophageal reflux disease without esophagitis; E78.00 Pure hypercholesterolemia, unspecified; I10 Essential (primary) hypertension; Z87.891 Personal history of nicotine dependence; Z88.8 Allergy status to other drugs, medicaments and biological substances
CPT/HCPCS: 36415; 71046; 80053; 83605; 83880; 84484; 85025; 85379; 93005; 94640; 99285; J0456; J7613; Q0169; 94664

== ENCOUNTER 2020-12-08 11:30 | Emergency (ER) | payer MEDICARE ==
[~2020-12-08] VITALS: Ht 160 cm; Wt 86.3 kg
[~2020-12-08 11:30] MED LIST changes: +ALBU2.5V5 NEB; +AZIT250T6 PO
[2020-12-08 11:40] VITALS: BP 128/81
[2020-12-08 12:28] LABS: BACTERIA,URINE 0 /HPF (0-FEW); BILIRUBIN,URINE NEG (NEG); CLARITY,URINE HAZY; COLOR,URINE YELLOW; GLUCOSE,URINE NEG (NEG); SQUAMOUS EPITHELIAL CELL,UR FEW /LPF; UROBILINOGEN,URINE 0.2 mg/dL (0.2 mg/dL)
[2020-12-08 12:29] LABS: HYALINE CASTS, URINE FEW /HPF
[2020-12-08] MEDS ORDERED: ONDANSETRON PF 4 MG/2 ML VIAL. IVP ONE (12:30)
[2020-12-08] MEDS ORDERED: KETOROLAC 15 MG/ML VIAL. IVP ONE (12:30)
[2020-12-08] MEDS ORDERED: IV NORMAL SALINE 1,000ML 1,000 ML IV ONE (12:30)
[2020-12-08 12:31] LABS: NITRITE,URINE NEG (NEG)
--- NOTE | 2020-12-08 12:41 | RAD ---
EXAM: Abdomen and pelvis CT without intravenous contrast. HISTORY: Flank pain. Dysuria. TECHNIQUE: Computed tomographic images of the abdomen and pelvis were obtained without contrast. Mult iplanar reformatting was performed. *One or more of the following individualized dose reduction techniques were utilized for this examina tion: 1. Automated exposure control. 2. Adjustment of the mA and/or kV according to patient size. 3. Use of iterative reconstruction technique. COMPARISON: None. FINDINGS: Evaluation of the lower thorax demonstrates right middle lobe and lingular pleural parenchy mal scarring. There is left basilar scarring and atelectasis. There is no infiltrate or pleural effus ion. No suspicious hepatic lesion is seen. There is mild suspected hepatosplenomegaly. The gallbladde r is surgically absent. The pancreas is unremarkable. There is thickening of the anjali of the left adr enal gland, without a discrete nodule. There is a 1.6 cm exophytic lesion along the anterior upper mi d zone of the left kidney, likely a cyst. There is no hydronephrosis. There is diastasis of the ventral abdominal wall musculature with protrusion of abdominal visceral st ructures. The appendix is absent. There is moderate colonic stool. There is a left ventral abdominal wall colostomy. The bladder is nearly empty. The uterus and ovaries are absent. There is aortic and a ortic branch vessel calcified atherosclerotic plaque. No pathologically enlarged lymph node is seen. There is thoracolumbar scoliosis and multilevel listhesis. There is partial lumbar lordosis. IMPRESSION: 1. No acute finding or finding correlate with flank pain and dysuria. 2. Diastasis of the ventral abdominal wall musculature with protrusion of abdominal visceral structur es. 3. Left hemicolectomy and left ventral abdominal wall colostomy formation. 4. Small left renal cyst. Follow-up is routinely performed for simple cysts. 5. Hepatosplenomegaly. Electronically signed by: Melissa Alberto MD (12/08/2020 12:38 PM) [id number]
[2020-12-08 13:02] LABS: BASO # 0.1 x10^3/uL (0.0-0.2); BASO % 1 % (0-3); EOS # 0.2 x10^3/uL (0.0-0.7); EOS % 2 % (0-3); HEMATOCRIT 41.9 % (36.0-47.0); HEMOGLOBIN 14.1 g/dL (12.0-15.5); LYMPH % 30 % (24-48); MEAN CORPUSCULAR HEMOGLOBIN 32 pg (25-35); MEAN CORPUSCULAR HGB CONC 34 g/dL (31-37); MEAN CORPUSCULAR VOLUME 94 fL (79-100); MONO # 0.6 x10^3/uL (0.0-1.1); MONO % 9 % (0-9); NEUT # 3.8 x10^3uL (1.8-7.7); NEUT % 58 % (31-73); PLATELET COUNT 196 x10^3/uL (140-400); RED BLOOD COUNT 4.47 x10^6/uL (3.50-5.40); RED CELL DISTRIBUTION WIDTH 13.3 % (11.5-14.5); WHITE BLOOD COUNT 6.6 x10^3/uL (4.0-11.0)
[2020-12-08 13:13] LABS: CALCIUM 9.4 mg/dL (8.5-10.1); CREATININE 0.8 mg/dL (0.6-1.0); POTASSIUM 4.5 mmol/L (3.5-5.1)
[2020-12-08 13:19] LABS: ALBUMIN 3.4 g/dL (3.4-5.0); ALBUMIN/GLOBULIN RATIO 0.9 (1.0-1.7); TOTAL BILIRUBIN 0.4 mg/dL (0.2-1.0); TOTAL PROTEIN 7.3 g/dL (6.4-8.2)
--- NOTE | 2020-12-08 13:27 | PHYS DOC ---
Past History Past Medical History: No Pertinent History Additional Past Medical Histor: back pain Past Surgical History: Other Additional Past Surgical Histo: colostomy; abd surgeries x7 Smoking: Non-smoker, Quit Greater Than 1 Year Alcohol Use: None Drug Use: None General Adult EDM: Chief Complaint: URINARY FREQUENCY HPI: HPI: Patient is a [age] year old [sex] who presents with [] Review of Systems: Review of Systems: Constitutional: Denies fever or chills Eyes: Denies change in visual acuity HENT: Denies nasal congestion or sore throat Respiratory: Denies cough or shortness of breath Cardiovascular: Denies chest pain or edema GI: Denies abdominal pain, nausea, vomiting, bloody stools or diarrhea : Denies dysuria Musculoskeletal: Denies back pain or joint pain Integument: Denies rash Neurologic: Denies headache, focal weakness or sensory changes Endocrine: Denies polyuria or polydipsia Lymphatic: Denies swollen glands Psychiatric: Denies depression or anxiety Current Medications: Current Meds: Current Medications Medications (Trade) Dose Ordered Sig/Emily Start Time Stop Time Status Last Admin Dose Admin Ketorolac Tromethamine (Toradol 15mg Vial) 15 mg 1X ONCE 12/08/20 12:30 12/08/20 12:31 DC 12/08/20 13:16 15 MG Ondansetron HCl (Zofran) 4 mg 1X ONCE 12/08/20 12:30 12/08/20 12:31 DC Sodium Chloride 1,000 ml @ 1,000 mls/hr 1X ONCE 12/08/20 12:30 12/08/20 13:29 12/08/20 13:16 1,000 MLS/HR Allergies: Allergies: Allergies Coded Allergies Type Severity Reaction Last Updated Verified aspartame Allergy Severe Anaphylaxis 09/20/19 Yes saccharin Allergy Severe Anaphylaxis 09/20/19 Yes sucralose Allergy Severe Anaphylaxis 09/20/19 Yes Horse/Equine Containing Products Allergy Intermediate 09/20/19 Yes methadone Allergy Intermediate 09/20/19 Yes ondansetron Allergy Intermediate 09/20/19 Yes Physical Exam: PE: Constitutional: Well developed, well nourished, no acute distress, non-toxic appearance. HENT: Normocephalic, atraumatic, Eyes: EOMI, conjunctiva normal, no discharge. Neck: Normal range of motion, supple, Cardiovascular: S1/2 present, regular rhythm Lungs & Thorax: Speaking in full sentences, bilateral equal chest rise, no tachypnea or increased work of breathing Abdomen: soft, no tenderness, Skin: Warm, dry, no erythema, no rash. [] Back: No tenderness, no CVA tenderness. [] Extremities: No tenderness, no cyanosis, no lower extremity edema Neurologic: Alert and oriented X 3, normal motor function, normal sensory function, no focal deficits noted. [] Psychologic: Affect normal, judgement normal, mood normal. [] Current Patient Data: Labs: Laboratory Tests Test 12/08/20 11:42 12/08/20 12:50 Urine Collection Type Unknown Urine Color Yellow Urine Clarity Hazy Urine pH 5.0 Urine Specific [place] >=1.030 Urine Protein Trace (NEG-TRACE) Urine Glucose (UA) Neg mg/dL (NEG) Urine Ketones (Stick) Neg mg/dL (NEG) Urine Blood Neg (NEG) Urine Nitrite Neg (NEG) Urine Bilirubin Neg (NEG) Urine Urobilinogen Dipstick 0.2 mg/dL (0.2 mg/dL) Urine Leukocyte Esterase Trace (NEG) Urine RBC 6-10 /HPF (0-2) Urine WBC 5-10 /HPF (0-4) Urine Squamous Epithelial Cells Few /LPF Urine Transitional Epithelial Cells Few /LPF Urine Bacteria 0 /HPF (0-FEW) Urine Hyaline Casts Few /HPF Urine Mucus Mod /LPF White Blood Count 6.6 x10^3/uL (4.0-11.0) Red Blood Count 4.47 x10^6/uL (3.50-5.40) Hemoglobin 14.1 g/dL (12.0-15.5) Hematocrit 41.9 % (36.0-47.0) Mean Corpuscular Volume 94 fL (79-100) Mean Corpuscular Hemoglobin 32 pg (25-35) Mean Corpuscular Hemoglobin Concent 34 g/dL (31-37) Red Cell Distribution Width 13.3 % (11.5-14.5) Platelet Count 196 x10^3/uL (140-400) Neutrophils (%) (Auto) 58 % (31-73) Lymphocytes (%) (Auto) 30 % (24-48) Monocytes (%) (Auto) 9 % (0-9) Eosinophils (%) (Auto) 2 % (0-3) Basophils (%) (Auto) 1 % (0-3) Neutrophils # (Auto) 3.8 x10^3uL (1.8-7.7) Lymphocytes # (Auto) 2.0 x10^3/uL (1.0-4.8) Monocytes # (Auto) 0.6 x10^3/uL (0.0-1.1) Eosinophils # (Auto) 0.2 x10^3/uL (0.0-0.7) Basophils # (Auto) 0.1 x10^3/uL (0.0-0.2) Sodium Level 139 mmol/L (136-145) Potassium Level 4.5 mmol/L (3.5-5.1) Chloride Level 102 mmol/L (98-107) Carbon Dioxide Level 31 mmol/L (21-32) Anion Gap 6 (6-14) Blood Urea Nitrogen 23 mg/dL (7-20) H Creatinine 0.8 mg/dL (0.6-1.0) Estimated GFR (Cockcroft-Gault) 72.0 BUN/Creatinine Ratio 29 (6-20) H Glucose Level 95 mg/dL (70-99) Calcium Level 9.4 mg/dL (8.5-10.1) Total Bilirubin 0.4 mg/dL (0.2-1.0) Aspartate Amino Transferase (AST) 19 U/L (15-37) Alanine Aminotransferase (ALT) 19 U/L (14-59) Alkaline Phosphatase 70 U/L (46-116) Total Protein 7.3 g/dL (6.4-8.2) Albumin 3.4 g/dL (3.4-5.0) Albumin/Globulin Ratio 0.9 (1.0-1.7) L Vital Signs: Vital Signs Date Time Temp Pulse Resp B/P (MAP) Pulse Ox O2 Delivery O2 Flow Rate FiO2 12/08/20 11:40 98.3 63 16 128/81 (97) 95 Room Air EKG: EKG: [] Radiology/Procedures: Radiology/Procedures: IMAGING REPORT Signed PATIENT: ALMA KNIGHT ACCOUNT: [id number] : 1955 LOCATION: ER AGE: 65 SEX: F EXAM STATUS: REG ER ORD. PHYSICIAN: FAN CARDOSO DO REASON: right flank pain, dysuria PROCEDURE: CT ABDOMEN PELVIS WO CONTRAST EXAM: Abdomen and pelvis CT without intravenous contrast. HISTORY: Flank pain. Dysuria. TECHNIQUE: Computed tomographic images of the abdomen and pelvis were obtained w ithout contrast. Multiplanar reformatting was performed. *One or more of the following individualized dose reduction techniques were utilized for this examination: 1. Automated exposure control. 2. Adjustment of the mA and/or kV according to patient size. 3. Use of iterative reconstruction technique. COMPARISON: None. FINDINGS: Evaluation of the lower thorax demonstrates right middle lobe and lingular pleural parenchymal scarring. There is left basilar scarring and atelectasis. There is no infiltrate or pleural effusion. No suspicious hepatic lesion is seen. There is mild suspected hepatosplenomegaly. The gallbladder is surgically absent. The pancreas is unremarkable. There is thickening of the anjali of the left adrenal gland, without a discrete nodule. There is a 1.6 cm exophytic lesion along the anterior upper mid zone of the left kidney, likely a cyst. There is no hydronephrosis. There is diastasis of the ventral abdominal wall musculature with protrusion of abdominal visceral structures. The appendix is absent. There is moderate colonic stool. There is a left ventral abdominal wall colostomy. The bladder is nearly empty. The uterus and ovaries are absent. There is aortic and aortic branch vessel calcified atherosclerotic plaque. No pathologically enlarged lymph node is seen. There is thoracolumbar scoliosis and multilevel listhesis. There is partial lumbar lordosis. IMPRESSION: 1. No acute finding or finding correlate with flank pain and dysuria. 2. Diastasis of the ventral abdominal wall musculature with protrusion of abdominal visceral structures. 3. Left hemicolectomy and left ventral abdominal wall colostomy formation. 4. Small left renal cyst. Follow-up is routinely performed for simple cysts. 5. Hepatosplenomegaly. Electronically signed by: Melissa Lang MD (12/08/2020 12:38 PM) [id number] DICTATED AND SIGNED BY: MELISSA LANG MD DATE: 12/08/20 8923 CC: ZEINAB NARAYANAN MD; FAN CARDOSO DO ~MTH0 0 Heart Score: Risk Factors: Risk Factors: DM, Current or recent (<one month) smoker, HTN, HLP, family history of CAD, obesity. Risk Scores: Score 0 - 3: 2.5% MACE over next 6 weeks - Discharge Home Score 4 - 6: 20.3% MACE over next 6 weeks - Admit for Clinical Observation Score 7 - 10: 72.7% MACE over next 6 weeks - Early Invasive Strategies Course & Med Decision Making: Course & Med Decision Making Pertinent Labs and Imaging studies reviewed. (See chart for details) Will discharge home with strict ED return precautions were given for []. Encouraged urgent outpatient follow-up with PMD and [specialist]. Life- threatening processes were considered but are low suspicion at this time, given history, physical exam and ED workup. Pt was educated on all prescription medications and adverse effects. All patient's questions were answered and pt was stable at time of discharge. Life/limb-threatening differential includes but is not limited to, aortic dissection/aneurysm, cauda equina syndrome, transverse myelitis, spinal cord/epidural compression syndromes, discitis, spinal stenosis, epidural abscess or hematoma, osteomyelitis, disc herniation, surgical abdomen, stable or unstable fracture, renal/ureteral colic, sepsis, meningitis, musculoskeletal injury, traumatic injury, intraabdominal/retroperitoneal or pelvic bleeding. I spoken with the patient and her caregivers. I explained the patient's condition, diagnoses and treatment plan based on the information available to me at this time. I have answered the patient and her caregiver's questions and addressed any concerns. The patient and her caregivers have a good understanding of patient's diagnosis, condition and treatment plan as can be expected at this point. Vital signs have been stable. Patient's condition is stable and appropriate for discharge from the emergency department. Patient will pursue further outpatient evaluation with primary care physician or other designated or consulting physician as outlined in the discharge instructions. The patient and/or caregivers are agreeable to this plan of care and follow-up instructions have been explained in detail. The patient and/or caregivers have received these instructions in written form and have expressed an understanding of the discharge instructions. The patient and/or caregivers are aware that any significant change of condition or worsening of symptoms should prompt immediate return to this or the closest emergency department or call to 911. [place] Disclaimer: [place] Disclaimer: This electronic medical record was generated, in whole or in part, using a voice recognition dictation system. Departure Departure: Impression: Primary Impression: Dysuria Additional Impression: Right low back pain Disposition: 01 DC HOME SELF CARE/HOMELESS Condition: STABLE Referrals: ZEINAB NARAYANAN MD (PCP) 2 weeks to repeat U/A Patient Instructions: Back Pain, Adult, Urinary Tract Infection Additional Instructions: EMERGENCY DEPARTMENT GENERAL DISCHARGE INSTRUCTIONS Thank you for coming to [facility] (ED) today and trusting us with you care. We trust that you had a positivie experience in our Emergency Department. If you wish to speak to the department management, you may call the director at [phone]. YOUR FOLLOW UP INSTRUCTIONS ARE FOLLOWS: 1. Do you have a private Doctor? If you do not have a private doctor, please ask for a resource list of physicians or clinics that may be able to assist you with follow up care. 2. The Emergency Physician has interpreted your x-rays. The X-Ray specialist will also review them. If there is a change in the findings, you will be notified in 48 hours when at all possible. 3. A lab test or culture has been done, your results will be reviewed and you will be notified if you need a change in treatment. ADDITIONAL INSTRUCTIONS AND INFORMATION: 1. Your care today has been supervised by a physician who is specially trained in emergency care. Many problems require more than one evaluation for a complete diagnosis and treatment. We recommend that you schedule your follow up appointment as recommended to ensure complete treatment of you illness or injury. If you are unable to obtain follow up care and continue to have a problem, or if your condition worsens, we recommend that you return to the ED. 2. We are not able to safely determine your condition over the phone nor are we able to give sound medical advice over the phone. For these safety reasons, if you call for medical advice we will ask you to come to the ED for further evaluation. 3. If you have any questions regarding these discharge instructions please call the ED at [phone]. SAFETY INFORMATION: In the interest of safety, wellness, and injury prevention; we encourage you to wear your sealbelt, if you smoke; quite smoking, and we encourage family to use a protective helmet for bicycling and other sporting events that present an increased risk for head injury. IF YOUR SYMPTOMS WORSEN OR NEW SYMPTOMS DEVELOP, OR YOU HAVE CONCERNS ABOUT YOUR CONDITION; OR IF YOUR CONDITION WORSENS WHILE YOU ARE WAITING FOR YOUR FOLLOW UP APPOINTMENT; EITHER CONTACT YOUR PRIMARY CARE DOCTOR, THE PHYSICIAN WHOSE NAME AND NUMBER YOU WERE GIVEN, OR RETURN TO THE ED IMMEDIATELY. Scripts Cefpodoxime Proxetil (CEFPODOXIME PROXETIL) 100 Mg/5 Ml Susp.recon 1 TAB PO BID for uti for 14 Days, #28 TAB 0 Refills Prov: FAN CARDOSO DO 12/08/20 FAN CARDOSO DO Dec 08, 2020 13:27
[2020-12-08] MEDS ORDERED: CEFP100S3 PO (13:53)
== END 2020-12-08 14:03 | disposition home or self-care (01) ==
LOC: ER 11:30
DX: R30.0 Dysuria (principal); M54.5 Low back pain; Z98.890 Other specified postprocedural states; Z90.89 Acquired absence of other organs; Z88.8 Allergy status to other drugs, medicaments and biological substances
CPT/HCPCS: 36415; 74176; 80053; 81001; 85025; 87086; 96361; 96374; 99284; J1885; J7030

== ENCOUNTER 2021-07-23 11:35 | Emergency (ER) | payer MEDICARE ==
[~2021-07-23] VITALS: Ht 160 cm; Wt 86.3 kg
[~2021-07-23 11:35] MED LIST changes: +CEFP100S3 PO
--- NOTE | 2021-07-23 11:54 | PHYS DOC ---
Past History Past Medical History: High Cholesterol, Hypertension Additional Past Medical Histor: back pain Past Surgical History: Other Additional Past Surgical Histo: colostomy; abd surgeries x7 Smoking: Cigarettes, Quit Greater Than 1 Year Alcohol Use: None Drug Use: None Adult General Chief Complaint Chief Complaint: CHEST PAIN HPI HPI Patient is a 66-year-old female presenting via EMS for chest pain. Reports onset was approximately 30 minutes prior to arrival. States she felt unwell while driving to local grocery store and when she got out and attempted to ambulate into the grocery store she felt substernal pressure that radiated to he r left jaw. This was constant in nature and caused her to feel very weak and lightheaded prompting her to get back in car and called EMS. On arrival, patient found to be hemodynamically stable. EKG unremarkable. Patient given x3 baby aspirin and subsequently transported to our ER for evaluation. On arrival, patient complains of ongoing 5/10 severity substernal pressure that radiates to left jaw. Nothing known makes better or worse. She has never had a history of this before, no prior CAD or provocative cardiac testing. Does admit to having numerous risk factors such as high blood pressure and cholesterol in addition to ongoing cigarette abuse. She is fully vaccinated against COVID-19 Review of Systems Review of Systems Fourteen body systems of review of systems have been reviewed. See HPI for pertinent positives and negative responses, other [place] all other systems are negative, non-pertinent or non-contributory Allergies Allergies Allergies Coded Allergies Type Severity Reaction Last Updated Verified aspartame Allergy Severe Anaphylaxis 09/20/19 Yes saccharin Allergy Severe Anaphylaxis 09/20/19 Yes sucralose Allergy Severe Anaphylaxis 09/20/19 Yes Horse/Equine Containing Products Allergy Intermediate 09/20/19 Yes methadone Allergy Intermediate 09/20/19 Yes ondansetron Allergy Intermediate 09/20/19 Yes Physical Exam Physical Exam Constitutional: Well developed, well nourished, appears to be uncomfortable and in pain by non-toxic in appearance. HENT: Normocephalic, atraumatic, bilateral external ears normal, oropharynx moist, no oral exudates, nose normal. Eyes: PERRLA, EOMI, conjunctiva normal, no discharge. Neck: Normal range of motion, no tenderness, supple, no stridor. Cardiovascular: Heart rate regular, sinus rhythm, no murmurs rubs or gallops Lungs & Thorax: Bilateral breath sounds clear to auscultation Abdomen: Bowel sounds normal, soft, no tenderness, no masses, no pulsatile masses. Nonsurgical abdomen, no peritoneal signs Skin: Warm, dry, no erythema, no rash. Back: No tenderness, no CVA tenderness. Extremities: No tenderness, no cyanosis, no clubbing, ROM intact, no edema. Neurologic: Alert and oriented X 3, grossly normal motor & sensory function, no focal deficits noted. Psychologic: Anxious affect and mood Current Patient Data Vital Signs Vital Signs Date Time Temp Pulse Resp B/P (MAP) Pulse Ox O2 Delivery O2 Flow Rate FiO2 07/23/21 12:15 66 121/64 07/23/21 12:20 98.0 16 96 Vital Signs Date Time Temp Pulse Resp B/P (MAP) Pulse Ox O2 Delivery O2 Flow Rate FiO2 07/23/21 12:20 98.0 65 16 123/77 (92) 96 Lab Results Current Medications Medications (Trade) Dose Ordered Sig/Emily Route PRN Reason Start Time Stop Time Status Last Admin Dose Admin Nitroglycerin (Nitrostat) 0.4 mg PRN Q5MIN PRN SL CP RATING > 1/10 07/23/21 12:00 07/24/21 07:09 DC 07/23/21 12:15 Fentanyl Citrate (Fentanyl 2ml Vial) 50 mcg 1X ONCE IVP 07/23/21 12:30 07/23/21 12:35 DC EKG EKG EKG ordered and interpreted by myself at 1145 hours is sinus rhythm at 63 bpm, unremarkable intervals, left axis deviation, no obvious ischemic findings, no STEMI EKG ordered and interpreted by myself at 1258 hrs. as sinus rhythm at 66 bpm, unremarkable intervals, no axis deviation, no acute ischemic findings, no STEMI Radiology/Procedures Radiology/Procedures Single view of the chest. 07/23/2021 11:51 AM Indication: Reason: chest pain Comparison: 2 views of the chest August 22, 2020 Findings: Mild diffuse sagittal coarsening is similar to comparison study. No pneumothorax, pleural effusion, or focal infiltrate is seen. Heart size is top normal but similar. No acute osseous changes are identified. 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 Risk Scores: Risk Factors: DM, Current or recent (<one month) smoker, HTN, HLP, family history of CAD, obesity. Course & Med Decision Making Course & Med Decision Making ABCs unremarkable HPI physical exam and comprehensive ER work-up nonconcerning for any emergent or surgical issues With that said, I disclosed with patient elevated heart score and need for hospital admission for cardiac observation. She deferred. I aggressively recommended for her to stay as I could not definitively rule out any potentially life-threatening causes of patient's symptoms Patient continued to defer stating she has good access to primary care physician in the outpatient setting. She has full capacity. As such, strict return precautions discussed at length. All questions and concerns addressed prior to ER departure Dragon Disclaimer Dragon Disclaimer This electronic medical record was generated, in whole or in part, using a voice recognition dictation system. Departure Departure: Impression: Primary Impression: Chest pain, unspecified Disposition: HOME / SELF CARE / HOMELESS Condition: STABLE Referrals: ZEINAB NARAYANAN MD (PCP) Additional Instructions: You were seen for chest pain. Your workup did not show any acute abnormalities today, but does not indicate that you do not have underlying cardiovascular disease. We recommended hospital admission for cardiac observation and you deferred. 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 You should return to the ED if you develop worsening chest pain, shortness of breath, fever, abnormal sweating, leg swelling, or any other new or concerning symptoms. HO PETTY DO Jul 23, 2021 11:54
[2021-07-23] MEDS ORDERED: NITROGLYCERIN SUBLINGUAL 0.4 MG BOTTLE OF 25. SL PRN (12:00)
--- NOTE | 2021-07-23 12:10 | RAD ---
Single view of the chest. 07/23/2021 11:51 AM Indication: Reason: chest pain Comparison: 2 views of the chest August 22, 2020 Findings: Mild diffuse sagittal coarsening is similar to comparison study. No pneumothorax, pleural e ffusion, or focal infiltrate is seen. Heart size is top normal but similar. No acute osseous changes are identified. IMPRESSION: Stable radiographic appearance the chest without evidence of acute cardiopulmonary proces s Electronically signed by: Ayush Gutierrez MD (07/23/2021 12:07 PM) [id number]
[2021-07-23 12:20] VITALS: BP 123/77
[2021-07-23 12:42] LABS: CALCIUM 8.5 mg/dL (8.5-10.1); CREATININE 0.6 mg/dL (0.6-1.0); POTASSIUM 4.3 mmol/L (3.5-5.1)
[2021-07-23 12:48] LABS: BASO % 0 % (0-3); EOS # 0.2 x10^3/uL (0.0-0.7); EOS % 2 % (0-3); HEMATOCRIT 46.2 % (36.0-47.0); HEMOGLOBIN 15.7 g/dL (12.0-15.5); LYMPH # 1.9 x10^3/uL (1.0-4.8); LYMPH % 20 % (24-48); MEAN CORPUSCULAR HEMOGLOBIN 33 pg (25-35); MEAN CORPUSCULAR HGB CONC 34 g/dL (31-37); MEAN CORPUSCULAR VOLUME 96 fL (79-100); MONO # 0.5 x10^3/uL (0.0-1.1); MONO % 5 % (0-9); NEUT % 72 % (31-73); PLATELET COUNT 184 x10^3/uL (140-400); RED BLOOD COUNT 4.81 x10^6/uL (3.50-5.40); RED CELL DISTRIBUTION WIDTH 14.1 % (11.5-14.5); WHITE BLOOD COUNT 9.7 x10^3/uL (4.0-11.0)
[2021-07-23 12:55] LABS: ALBUMIN 3.5 g/dL (3.4-5.0); MAGNESIUM 1.9 mg/dL (1.8-2.4); TOTAL BILIRUBIN 0.4 mg/dL (0.2-1.0); TOTAL PROTEIN 6.9 g/dL (6.4-8.2)
--- NOTE | 2021-07-23 14:47 | EKG ---
[address] [address] Test Date: 2021-07-23 Test Time: 11:42:46 Pat Name: ALMA KNIGHT Department: Room: Gender: F [place] Man: : 1955 Requested By: HO PETTY Order Number: [id number] Reading MD: Darryl Franco MD Measurements Intervals [place] Rate: 63 P: 32 ME: 172 QRS: -2 QRSD: 72 T: 15 QT: 408 QTc: 421 Interpretive Statements SINUS RHYTHM Electronically Signed On 07-27-2021 11:41:55 CDT by Darryl Franco MD
--- NOTE | 2021-07-23 14:59 | EKG ---
[address] [address] Test Date: 2021-07-23 Test Time: 12:53:36 Pat Name: ALMA KNIGHT Department: Room: Gender: F [place] Artist: BAILEY : 1955 Requested By: HO PETTY Order Number: [id number] Reading MD: Darryl Franco MD Measurements Intervals [place] Rate: 66 P: 46 HI: 182 QRS: 8 QRSD: 70 T: 16 QT: 420 QTc: 442 Interpretive Statements SINUS RHYTHM Electronically Signed On 07-27-2021 11:36:28 CDT by Darryl Franco MD
== END 2021-07-23 14:01 | disposition home or self-care (01) ==
LOC: ER 11:35
DX: R07.2 Precordial pain (principal); R42 Dizziness and giddiness; E78.00 Pure hypercholesterolemia, unspecified; I10 Essential (primary) hypertension; Z87.891 Personal history of nicotine dependence; Z88.8 Allergy status to other drugs, medicaments and biological substances
CPT/HCPCS: 36415; 71045; 80053; 83690; 83735; 83880; 84484; 85025; 85379; 85610; 85730; 93005; 99285-25

== ENCOUNTER 2022-01-19 14:30 | Emergency (ER) | payer MEDICARE ==
[~2022-01-19] VITALS: Ht 160 cm; Wt 86.3 kg
[~2022-01-19 14:30] MED LIST changes: -BUPR150T11 PO; +BUPR150T24 PO; -DIPH50CA PO; +DIPH50CA16 PO
[2022-01-19] MEDS ORDERED: IV NORMAL SALINE 1,000ML 1,000 ML IV SCH (14:45)
[2022-01-19] MEDS ORDERED: IOHEXOL 300 MG/ML 75 ML VIAL. IV ONE (14:45)
[2022-01-19 15:06] LABS: BASO % 1 % (0-3); EOS # 0.2 x10^3/uL (0.0-0.7); EOS % 3 % (0-3); HEMATOCRIT 44.1 % (36.0-47.0); HEMOGLOBIN 14.9 g/dL (12.0-15.5); LYMPH # 1.7 x10^3/uL (1.0-4.8); LYMPH % 30 % (24-48); MEAN CORPUSCULAR HEMOGLOBIN 32 pg (25-35); MEAN CORPUSCULAR HGB CONC 34 g/dL (31-37); MEAN CORPUSCULAR VOLUME 95 fL (79-100); MONO # 0.5 x10^3/uL (0.0-1.1); MONO % 9 % (0-9); NEUT # 3.4 x10^3uL (1.8-7.7); NEUT % 58 % (31-73); PLATELET COUNT 167 x10^3/uL (140-400); RED BLOOD COUNT 4.64 x10^6/uL (3.50-5.40); RED CELL DISTRIBUTION WIDTH 12.9 % (11.5-14.5); WHITE BLOOD COUNT 5.8 x10^3/uL (4.0-11.0)
[2022-01-19 15:12] LABS: CREATININE 0.7 mg/dL (0.6-1.0); GFR 83.7; POTASSIUM 3.9 mmol/L (3.5-5.1)
[2022-01-19 15:18] LABS: TOTAL BILIRUBIN 0.3 mg/dL (0.2-1.0); TOTAL PROTEIN 5.9 g/dL (6.4-8.2)
--- NOTE | 2022-01-19 15:46 | PHYS DOC ---
Past History Past Medical History: High Cholesterol, Hypertension Additional Past Medical Histor: back pain Past Surgical History: No Surgical History Additional Past Surgical Histo: colostomy; abd surgeries x7 Smoking: Cigarettes, Quit Greater Than 1 Year Alcohol Use: None Drug Use: None General Adult EDM: Chief Complaint: ABDOMINAL PAIN HPI: HPI: Patient is a 66-year-old female who presents to the emergency department for umbilical abdominal pain with nausea, watery diarrhea. Patient reports that her symptoms have been intermittent since Tuesday. Patient reports she has a history of C. difficile and a bowel obstruction. She has not been on any recent antibiotics. She rates her pain 6 out of 10. She denies urinary symptoms, fever, blood in her stools or vomiting. Review of Systems: Review of Systems: Constitutional: See HPI GI: See HPI see HPI Musculoskeletal: Denies flank pain Current Medications: Current Meds: Current Medications Medications (Trade) Dose Ordered Sig/Emily Start Time Stop Time Status Last Admin Dose Admin Fentanyl Citrate (Fentanyl 2ml Vial) 50 mcg 1X ONCE 01/19/22 14:45 01/19/22 14:46 DC 01/19/22 14:57 50 MCG Iohexol (Omnipaque 300 Mg/ml) 75 ml 1X ONCE 01/19/22 14:45 01/19/22 14:46 DC 01/19/22 14:45 75 ML Sodium Chloride 1,000 ml @ 1,000 mls/hr Q1H 01/19/22 14:45 01/19/22 15:44 01/19/22 14:57 1,000 MLS/HR Allergies: Allergies: Allergies Coded Allergies Type Severity Reaction Last Updated Verified aspartame Allergy Severe Anaphylaxis 09/20/19 Yes saccharin Allergy Severe Anaphylaxis 09/20/19 Yes sucralose Allergy Severe Anaphylaxis 09/20/19 Yes Horse/Equine Containing Products Allergy Intermediate 09/20/19 Yes methadone Allergy Intermediate 09/20/19 Yes ondansetron Allergy Intermediate 09/20/19 Yes Physical Exam: PE: Constitutional: Well developed, well nourished, no acute distress, non-toxic appearance. [] HENT: Normocephalic, atraumatic, bilateral external ears normal, oropharynx moist, no oral exudates, nose normal. [] Eyes: PERRL, EOMI, conjunctiva normal, no discharge. [] Neck: Normal range of motion, no stridor Cardiovascular:Heart rate regular rhythm, no murmur [] Lungs & Thorax: Bilateral breath sounds clear to auscultation [] Abdomen: Bowel sounds normal, soft, umbilical abdominal pain reported with palpation, no masses, no abdominal guarding or rigidity, no pulsatile masses. [] Skin: Warm, dry, no erythema, no rash. [] Back: No tenderness, no CVA tenderness. [] Extremities: No tenderness, no cyanosis, no clubbing, ROM intact, no edema. [] Neurologic: Alert and oriented X 3, normal motor function, normal sensory function, no focal deficits noted. [] Psychologic: Affect normal, judgement normal, mood normal. [] Current Patient Data: Labs: Laboratory Tests Test 01/19/22 14:51 White Blood Count 5.8 x10^3/uL (4.0-11.0) Red Blood Count 4.64 x10^6/uL (3.50-5.40) Hemoglobin 14.9 g/dL (12.0-15.5) Hematocrit 44.1 % (36.0-47.0) Mean Corpuscular Volume 95 fL (79-100) Mean Corpuscular Hemoglobin 32 pg (25-35) Mean Corpuscular Hemoglobin Concent 34 g/dL (31-37) Red Cell Distribution Width 12.9 % (11.5-14.5) Platelet Count 167 x10^3/uL (140-400) Neutrophils (%) (Auto) 58 % (31-73) Lymphocytes (%) (Auto) 30 % (24-48) Monocytes (%) (Auto) 9 % (0-9) Eosinophils (%) (Auto) 3 % (0-3) Basophils (%) (Auto) 1 % (0-3) Neutrophils # (Auto) 3.4 x10^3uL (1.8-7.7) Lymphocytes # (Auto) 1.7 x10^3/uL (1.0-4.8) Monocytes # (Auto) 0.5 x10^3/uL (0.0-1.1) Eosinophils # (Auto) 0.2 x10^3/uL (0.0-0.7) Basophils # (Auto) 0.0 x10^3/uL (0.0-0.2) Sodium Level 142 mmol/L (136-145) Potassium Level 3.9 mmol/L (3.5-5.1) Chloride Level 106 mmol/L (98-107) Carbon Dioxide Level 33 mmol/L (21-32) H Anion Gap 3 (6-14) L Blood Urea Nitrogen 16 mg/dL (7-20) Creatinine 0.7 mg/dL (0.6-1.0) Estimated GFR (Cockcroft-Gault) 83.7 BUN/Creatinine Ratio 23 (6-20) H Glucose Level 114 mg/dL (70-99) H Calcium Level 9.0 mg/dL (8.5-10.1) Total Bilirubin 0.3 mg/dL (0.2-1.0) Aspartate Amino Transferase (AST) 18 U/L (15-37) Alanine Aminotransferase (ALT) 23 U/L (14-59) Alkaline Phosphatase 77 U/L (46-116) Total Protein 5.9 g/dL (6.4-8.2) L Albumin 3.0 g/dL (3.4-5.0) L Albumin/Globulin Ratio 1.0 (1.0-1.7) Lipase 115 U/L (73-393) Vital Signs: Vital Signs Date Time Temp Pulse Resp B/P (MAP) Pulse Ox O2 Delivery O2 Flow Rate FiO2 01/19/22 14:57 16 01/19/22 14:37 98.6 69 144/68 (93) 97 Room Air EKG: EKG: [] Radiology/Procedures: Radiology/Procedures: []Comparison: CT abdomen pelvis 12/08/2020 Technique: Helical CT imaging performed of the abdomen and pelvis after the intravenous administration of 75 mL Omnipaque 300 contrast. Sagittal and coronal reformats were obtained. One or more of the following individualized dose reduction techniques were utilized for this examination: 1. Automated exposure control 2. Adjustment of the mA and/or kV according to patient size 3. Use of iterative reconstruction technique. Findings: Lower chest: Mild linear opacities in the right middle lobe are unchanged. The heart is normal in size. Liver: Normal. Gallbladder/Biliary Tree: The gallbladder surgically absent. Bile ducts are within normal limits. Pancreas: Mild diffuse pancreatic atrophy. Spleen: No splenomegaly. Adrenal Glands: Normal. Kidneys/Ureters/Bladder: The right kidney is malrotated. Both kidneys are normal in size and enhance symmetrically. No hydronephrosis. There is a 1.2 cm simple cyst in the left kidney, unchanged. Bladder is normal. Ureters are nondilated. Reproductive Organs: Uterus is surgically absent. Stomach, small bowel, and colon: The stomach is normal. There is no small bowel obstruction. The appendix is probably surgically absent. There are surgical changes of partial left colectomy with a left lower quadrant colostomy. Vasculature: Abdominal aorta is normal in caliber. Mild calcified aortoiliac atherosclerosis. Lymph Nodes: No lymphadenopathy. Peritoneum and retroperitoneum: No ascites or free air. Bones: No acute osseous abnormality. There is severe degenerative disc disease in the lumbar spine is straightening of lordosis. Miscellaneous: There is diastases recti with protrusion of the abdominal viscera. IMPRESSION: 1. No acute abnormality. 2. Surgical changes of partial left colectomy with left lower quadrant colostomy. 3. Diastasis recti with protrusion of abdominal viscera, unchanged. Electronically signed by: Sissy Duenas MD (01/19/2022 4:24 PM) [id number] DICTATED AND SIGNED BY: SISSY DUENAS MD DATE: 01/19/22 1607 CC: ZEINAB NARAYANAN MD; BRANDI RAMIREZ APRN ~ Heart Score: C/O Chest Pain: N/A Risk Factors: Risk Factors: DM, Current or recent (<one month) smoker, HTN, HLP, family history of CAD, obesity. Risk Scores: Score 0 - 3: 2.5% MACE over next 6 weeks - Discharge Home Score 4 - 6: 20.3% MACE over next 6 weeks - Admit for Clinical Observation Score 7 - 10: 72.7% MACE over next 6 weeks - Early Invasive Strategies Course & Med Decision Making: Course & Med Decision Making Pertinent Labs and Imaging studies reviewed. (See chart for details) [] Patient presents to the emergency department for umbilical abdominal pain with nausea and diarrhea. Patient has a history of bowel obstruction with colostomy and C. difficile. Work-up in the ER consisted of blood work including lipase, enteric panel, urinalysis and CT imaging of abdomen and pelvis. Patient treated with IV fluids and pain medication. Patient reports improvement in her symptoms following treatment in the emergency department. Her lab work was unremarkable and her CT scan did not show any obstruction. Stool sample sent off for C. difficile testing and patient will be notified of those results when they become available in approximately 1 to 2 days. Patient will be medically treated for C. difficile given her history. I offered patient nausea and pain medication in which she refused. I discussed with patient all findings and diagnostic testing as well as the need to follow- up with PCP for further evaluation and treatment or return to the ER if any new or worsening symptoms. Strict return precautions were also discussed at length. Patient voiced understanding and agreement with the plan. Patient is hemodynamically stable at the time of disposition. Dragon Disclaimer: Dragon Disclaimer: This electronic medical record was generated, in whole or in part, using a voice recognition dictation system. Departure Departure: Impression: Primary Impression: Abdominal pain Qualified Codes: R10.33 - Periumbilical pain Disposition: HOME / SELF CARE / HOMELESS Condition: GOOD Referrals: ZEINAB NARAYANAN MD (PCP) Patient Instructions: Clostridium Difficile Infection Additional Instructions: You were seen in the emergency department today for abdominal pain. Your CT scan did not show any obstruction. You were going to be prophylactically treated for C. difficile. Please start and finish antibiotic completely. You will be notified of your results when they become available in approximately 1 to 2 days. Please continue to take your nausea medication that you have at home as needed. Follow-up with your primary care provider tomorrow regarding your ER visit. Return to the emergency department if you develop worsening of your abdominal pain, high fevers refractory to treatment, intractable nausea or vomiting, weakness, blood in your stools or vomit. Scripts Vancomycin Hcl (VANCOMYCIN HCL) 125 Mg Capsule 1 CAP PO QID for cdiff for 10 Days, #40 CAP 0 Refills Prov: BRANDI RAMIREZ APRN 01/19/22 BRANDI RAMIREZ APRN Jan 19, 2022 15:46
--- NOTE | 2022-01-19 16:27 | RAD ---
Exam: CT abdomen/pelvis with intravenous contrast Indication: Abdominal pain Comparison: CT abdomen pelvis 12/08/2020 Technique: Helical CT imaging performed of the abdomen and pelvis after the intravenous administratio n of 75 mL Omnipaque 300 contrast. Sagittal and coronal reformats were obtained. One or more of the following individualized dose reduction techniques were utilized for this examinat ion: 1. Automated exposure control 2. Adjustment of the mA and/or kV according to patient size 3. Use of iterative reconstruction technique. Findings: Lower chest: Mild linear opacities in the right middle lobe are unchanged. The heart is normal in siz e. Liver: Normal. Gallbladder/Biliary Tree: The gallbladder surgically absent. Bile ducts are within normal limits. Pancreas: Mild diffuse pancreatic atrophy. Spleen: No splenomegaly. Adrenal Glands: Normal. Kidneys/Ureters/Bladder: The right kidney is malrotated. Both kidneys are normal in size and enhance symmetrically. No hydronephrosis. There is a 1.2 cm simple cyst in the left kidney, unchanged. Bladde r is normal. Ureters are nondilated. Reproductive Organs: Uterus is surgically absent. Stomach, small bowel, and colon: The stomach is normal. There is no small bowel obstruction. The appe ndix is probably surgically absent. There are surgical changes of partial left colectomy with a left lower quadrant colostomy. Vasculature: Abdominal aorta is normal in caliber. Mild calcified aortoiliac atherosclerosis. Lymph Nodes: No lymphadenopathy. Peritoneum and retroperitoneum: No ascites or free air. Bones: No acute osseous abnormality. There is severe degenerative disc disease in the lumbar spine is straightening of lordosis. Miscellaneous: There is diastases recti with protrusion of the abdominal viscera. IMPRESSION: 1. No acute abnormality. 2. Surgical changes of partial left colectomy with left lower quadrant colostomy. 3. Diastasis recti with protrusion of abdominal viscera, unchanged. Electronically signed by: Sissy Duenas MD (01/19/2022 4:24 PM) [id number]
[2022-01-19 16:35] VITALS: BP 143/70
[2022-01-19] MEDS ORDERED: VANC125C3 PO (16:43)
== END 2022-01-19 17:00 | disposition home or self-care (01) ==
LOC: ER 14:30
DX: R10.33 Periumbilical pain (principal); R11.0 Nausea; R19.7 Diarrhea, unspecified; E78.00 Pure hypercholesterolemia, unspecified; I10 Essential (primary) hypertension; Z87.891 Personal history of nicotine dependence; Z93.3 Colostomy status; Z88.8 Allergy status to other drugs, medicaments and biological substances
CPT/HCPCS: 36415; 74177; 80053; 83690; 85025; 96361; 96374; 99285; J3010; J7030; Q9967